=== PATIENT | male | born 1945 | race Caucasian/White ===

== ENCOUNTER 2019-01-26 12:00 | Inpatient (IN) ==
[2019-01-27] MEDS: Acetaminophen 325 MG TABLET PO PRN (17:23)
[2019-01-27] MEDS: *HR* Heparin 5,000 UNIT/ML VIAL SQ SCH (17:24)
--- NOTE | 2019-01-27 17:42 | Internal Med History&Physical ---
Date of Encounter: 01/27/19 Time of Encounter: 17:39 Assessment and Plan (1) Acute right MCA stroke Current visit: No Status: Acute To continue his rehabilitation to a right MCA infarct. Since neurological exam appears unchanged since his discharge to with continued left upper extremity plegia and left lower extremity paresis. Patient continues with slight dysarthria with left facial droop. Evaluation through physical therapy is pending. We will continue with current plan of care from . (2) Hypertension, essential, benign Current visit: No Status: Chronic No acute issues. We will continue on current plan of care and medications (3) CKD (chronic kidney disease) Current visit: Yes Status: Acute Patient has returned from [facility] are being evaluated for acute renal failure. Patient's creatinine had climbed to 4.8 at time of discharge to . Patient was evaluated and treated by nephrology with determination of possible contrast dye has reason for his acute increase in creatinine. Patient's last creatinine from was yesterday at 2.1. We will repeat patient's labs to monitor to serial labs. Qualifiers: Chronic kidney disease stage: unspecified stage Qualified Code(s): N18.9 - Chronic kidney disease, unspecified Internal Medicine - H&P: HPI Chief complaint: right CVA Admitted From: Hospital to Hospital Transfer Plans for Post Hospital Care: Home History of present illness: Mr. Torrez is a 73 year old male, who was transferred to this facility from [facility] after being readmitted there for evaluation of his acute renal failure. Patient recently was admitted to this facility for rehabilitation after experiencing a right MCA ischemic infarct and was treated with a right ICA stent while admitted at during that time. Patient was progressing well during therapy, but was found to have a elevated creatinine greater than 4 and was returned to relate for evaluation by nephrology. Patient's baseline creatinine was originally 1.7 at this time of discharge and had elevated to 4.8. Patient's most recent creatinine from yesterday at was at 2.1. Per medical records from , it was believed patient's elevated creatinine may have been the result of multiple exposures to contrast dye during his ICA stenting Patient continues to have LUE plegia and 3/5 LLE. RE 5/5. He continues to have a left facial droop and slight dysarthria. Patient at this time complains also of pain to his left ankle, which she states increases during repositioning. X- ray was obtained at time of arrival to this unit which showed no acute fracture but did show soft tissue edema. Patient denies any other discomforts or shortness of breath. Patient denies any history of gout. Past Med Surg Social Fam HX - Past Medical History Medical history: arthritis, CVA, hypertension, kidney stones - Past Surgical History Additional surgical history: Lumpectomy Left breast, bilateral rotator cuff repair, carpal tunnel sx, carotid stent placement - Social History Smoking Status: Never smoker Smokeless Tobacco Status: No Alcohol use: rarely Drug use: none - Family History Son Adopted: No Family Member Ethnicity: Non- Living Status: Hx Family Cardiac Disorders: No Hx Family Respiratory Disorders: No Hx Family Cancer: Yes Hx Family GI Disorders: No Hx Family Endocrine Disorder: No Hx Family Neuromuscular Disorders: No Hx Family Neurologic Disorders: No Hx Family HEENT Disorders: No Hx Family Autoimmune Disorders: No Internal Medicine - H&P: Meds Acetaminophen [Tylenol] 975 mg PO Q6HR PRN 01/16/19 [History] Aspirin Enteric Coated [Aspirin EC] 81 mg PO DAILY 01/16/19 [History] Atorvastatin Calcium [Lipitor] 80 mg PO HS 01/16/19 [History] Polyethylene Glycol 3350 [MiraLAX] 34 gm PO BID 01/16/19 [History] Ticagrelor [Brilinta] 60 mg PO BID 01/16/19 [History] Triamterene-Hctz 75-50 mg Tab 01/16/19 [History] Allergy/AdvReac Type Severity Reaction Status Date / Time No Known Allergies Allergy Verified 01/16/19 22:09 All Systems PM: A 10-system review of systems was performed and is negative for pertinent findings except as documented above in the HPI. - Constitutional Constitutional: as per HPI, no chills, no fever(s), no night sweats - EENT Eyes: as per HPI, no change in vision, no discharge, no pain, no photophobia Ears: as per HPI, no ear discharge, no ear pain, no tinnitus Nose, mouth and throat: as per HPI, no dysphagia, no nasal discharge, no neck pain, no sore throat - Breasts Breasts: as per HPI - Cardiovascular Cardiovascular ROS IM: as per HPI, no chest pain, no diaphoresis, no dyspnea, no lightheadedness, no palpitations, no syncope - Respiratory Respiratory: as per HPI, no cough, no dyspnea, no wheezing, no excessive phlegm production - Gastrointestinal Gastrointestinal: as per HPI, no abdominal pain, no diarrhea, no hematemesis, no hematochezia, no melena, no nausea, no vomiting - Genitourinary Genitourinary ROS male: as per HPI - Musculoskeletal Musculoskeletal ROS IM: as per HPI, no numbness, no tingling - Integumentary Integumentary IM: as per HPI, no rash, no unusual bruising - Neurological Neurological ROS: as per HPI, no confusion, no convulsions, no focal weakness, no numbness, no tingling, no tremor(s) - Hematologic/Lymphatic Hematologic/Lymphatic: no easy bruising - Constitutional Vitals: Temp Pulse Resp BP Pulse Ox 97.9 F 89 15 168/78 99 01/27/19 16:03 01/27/19 16:03 01/27/19 16:03 01/27/19 16:03 01/27/19 16:03 General appearance: Present: A&O X 3, pleasant - Head Head exam: Present: atraumatic, normocephalic - Eye Eye exam: Present: PERRL, conjuntiva pink, sclera anicteric Pupils: Present: PERRL - Neck Neck exam general surgery: Present: supple, trachea midline. Absent: lymphadenopathy - Respiratory Respiratory exam: Present: decreased breath sounds, CTAB. Absent: accessory muscle use, rales, rhonchi, wheezes - Cardiovascular Cardiovascular exam: Present: RRR, +S1, +S2. Absent: diastolic murmur, gallop, rubs, systolic murmur - GI/Abdominal GI/Abdominal exam: Present: normal bowel sounds, soft, no peritoneal signs. Absent: distended, tenderness - Extremities Exam Extremities exam: Present: warm, radial pulses palpable and symmetrical. Absent: calf tenderness, cyanotic, pedal edema Additional comments: Left ankle and foot appears swollen. No erythema noted. Slight tenderness during range of motion - Neurological Exam Neurological exam: Present: CN II-XII intact, oriented X3, facial droop, speech deficit. Absent: pronater drift Additional comments: Patient continues to have left upper arm plegia. Left leg paresis with muscle strength at 3/5. Left facial droop and dysarthria. Right extremities at 5/5 - Skin Skin exam: Present: dry, intact Internal Med - H&P Results - Impressions ITS Impressions Ankle X-Ray 01/27/19 16:17 IMPRESSION: No evidence of acute fracture Mild ankle swelling D/ / Rom Hyman MD / Rom Hyman MD Interpreting Provider: Rom Hyman MD
[2019-01-27] MEDS ORDERED: Ondansetron ODT 4 MG TAB.RAPDIS SL PRN (18:20)
[2019-01-27] MEDS: BRILINTA 60 MG PO SCH (21:42)
[2019-01-28] MEDS: *HR* Heparin 5,000 UNIT/ML VIAL SQ SCH ×2 (05:00→17:26)
[2019-01-28 07:56] LABS: Basophils % 0.3 %; Eosinophils # 0.1 K/mcL (0.0-0.6); Eosinophils % 0.6 %; Hematocrit 29.5 % (37.5-50.1); Immature Granulocytes % 1.3 % (0-4); Lymphocytes # 0.9 K/mcL (0.6-4.6); Lymphocytes % 9.7 %; Mean Corpuscular HGB Conc 33.9 g/dL (31.6-35.5); Mean Corpuscular Hemoglobin 30.6 pg (28.0-33.3); Mean Corpuscular Volume 90.2 fL (83.0-100.0); Mean Platelet Volume 8.8 fL (9.4-12.4); Monocytes # 1.2 K/mcL (0.0-1.3); Monocytes % 12.3 %; Neutrophils # 7.1 K/mcL (1.6-8.9); Platelet Count 384 K/mcL (140-400); Red Blood Count 3.27 M/mcL (4.19-5.50); Red Cell Distribution Width 13.6 % (11.5-14.5); Segmented Neutrophils % 75.8 %; White Blood Count 9.4 K/mcL (4.3-11.1)
[2019-01-28 08:17] LABS: Albumin 3.4 g/dL (3.5-5.7); Albumin/Globulin Ratio 1.2 (1.1-2.2); Bilirubin,Total 0.9 mg/dL (0.3-1.0); Calcium 8.7 mg/dL (8.6-10.3); Globulin 2.9 g/dL (2.4-3.5); Magnesium 1.5 mg/dL (1.6-2.6); Potassium 3.5 mEq/L (3.5-5.1); Total Protein 6.3 g/dL (6.4-8.9); Uric Acid 7.3 mg/dL (2.3-7.6)
[2019-01-28] MEDS: amLODIPine 5 MG TABLET PO SCH (08:33)
[2019-01-28] MEDS: Acetaminophen 325 MG TABLET PO PRN (08:33)
[2019-01-28] MEDS: Aspirin Enteric Coated 81 MG Tablet PO SCH (08:34)
[2019-01-28] MEDS: BRILINTA 60 MG PO SCH ×2 (08:35→20:40)
--- NOTE | 2019-01-28 10:16 | Internal Med Progress Note ---
Date of Encounter: 01/28/19 Time of Encounter: 10:13 - Assessment and plan (1) Acute right MCA stroke Current Visit: No Status: Acute Assessment and plan: Patient doing well. Patient was transferred back to this facility for further rehabilitation after being discharged from [facility]. Patient continues with left upper extremity plegia. Left lower extremity with paresis with muscle strength 3+/5. Patient states he feels some improvement of muscle strength on his left lower extremities and states that he was able to bear weight during transfer. Right extremities at 5/5. Patient also noted to have slight incre ased edema to left lower extremity, to include his left ankle which is painful during range of motion. X-ray was obtained which shows no acute process. Uric acid was at 7.2. Patient to continue with physical therapy and will apply ice and elevate left ankle when in bed. Venous Doppler pending (2) Hypertension, essential, benign Current Visit: No Status: Chronic Assessment and plan: Patient's vital signs stable but noted elevated systolic blood pressure greater than 170. We will add Tenormin 50 mg and continue to monitor blood pressure (3) CKD (chronic kidney disease) Current Visit: Yes Status: Acute Assessment and plan: Patient's renal function has been improving. Patient's last creatinine was 2.1 at . This morning's labs show a creatinine of 1.69. We will continue to monitor patient's renal status through serial labs. Qualifiers: Chronic kidney disease stage: unspecified stage Qualified Code(s): N18.9 - Chronic kidney disease, unspecified - Time Spent With Patient less than 15 minutes - Subjective Interval history: Patient appears relaxed trying denies any issues other than the pain to his left ankle during range of motion. Patient presented last evening after being discharged from [facility] and states that he is recently had a slight increase in edema to his left ankle which has been painful to move during range of motion. Labs were reviewed which shows a uric acid 7.3. Venous Doppler of the left leg is pending. Physical therapy evaluation is pending - Constitutional Vitals: Temp Pulse Resp BP Pulse Ox 98.6 F 67 16 169/74 97 01/28/19 07:26 01/28/19 07:26 01/28/19 07:26 01/28/19 07:26 01/28/19 07:26 General appearance: Present: A&O X 3, pleasant - Head Head exam: Present: atraumatic, normocephalic - Eye Eye exam: Present: PERRL, conjuntiva pink, sclera anicteric Pupils: Present: PERRL - Neck Neck exam general surgery: Present: supple, trachea midline. Absent: lymphadenopathy - Respiratory Respiratory exam: Present: CTAB. Absent: accessory muscle use, rales, rhonchi, wheezes - Cardiovascular Cardiovascular exam: Present: RRR, +S1, +S2. Absent: diastolic murmur, gallop, rubs, systolic murmur - GI/Abdominal GI/Abdominal exam: Present: normal bowel sounds, soft, no peritoneal signs. Absent: distended, tenderness - Extremities Exam Extremities exam: Present: warm, radial pulses palpable and symmetrical. Absent: calf tenderness, cyanotic, pedal edema Additional comments: Slight nonpitting edema to left lower leg and ankle. Tenderness on range of motion of left ankle. - Neurological Exam Neurological exam: Present: CN II-XII intact, oriented X3. Absent: pronater drift, facial droop, speech deficit Additional comments: Patient continues with left upper arm having plegia and left lower extremity with paresis of 3+/5 strength. Right extremities with 5/5 muscle strength - Skin Skin exam: Present: dry, intact Internal Medicine: Result - Labs CBC & Chem 7: 01/28/19 07:40 01/28/19 07:40 Labs: Short CBC 01/28/19 Range/Units 07:40 WBC 9.4 (4.3-11.1) K/mcL Hgb 10.0 L (12.9-16.9) g/dL Hct 29.5 L (37.5-50.1) % Plt Count 384 (140-400) K/mcL Neutrophils # 7.1 (1.6-8.9) K/mcL BMP 01/28/19 07:40 Sodium 137 Potassium 3.5 Chloride 103 Carbon Dioxide 24 BUN 29 H Creatinine 1.69 H Glucose 106 H Calcium 8.7 Liver Function 01/28/19 Range/Units 07:40 Total Bilirubin 0.9 (0.3-1.0) mg/dL AST 28 (13-39) Units/L ALT 27 (7-52) Units/L Alkaline Phosphatase 58 (34-104) Units/L Albumin 3.4 L (3.5-5.7) g/dL - Impressions Impressions Ankle X-Ray 01/27/19 16:17 IMPRESSION: No evidence of acute fracture Mild ankle swelling D/ / Rom Hyman MD / Rom Hyman MD Interpreting Provider: Rom Hyman MD Consult Discharge Plan - Plan Referrals: Danay Swan [Primary Care Provider] -
[2019-01-28] MEDS: Sennosides 8.6 MG TABLET PO SCH ×2 (11:18→20:40)
[2019-01-29] MEDS: *HR* Heparin 5,000 UNIT/ML VIAL SQ SCH ×2 (05:28→17:43)
[2019-01-29] MEDS: Acetaminophen 325 MG TABLET PO PRN ×2 (05:30→11:17)
[2019-01-29] MEDS: Sennosides 8.6 MG TABLET PO SCH ×2 (08:34→20:10)
[2019-01-29] MEDS: amLODIPine 5 MG TABLET PO SCH (08:34)
[2019-01-29] MEDS: Aspirin Enteric Coated 81 MG Tablet PO SCH (08:34)
[2019-01-29] MEDS: BRILINTA 60 MG PO SCH (08:35)
--- NOTE | 2019-01-29 10:24 | Internal Med Progress Note ---
Date of Encounter: 01/29/19 Time of Encounter: 10:22 - Assessment and plan (1) Acute right MCA stroke Current Visit: No Status: Acute Assessment and plan: Patient doing well. Patient was transferred back to this facility for further rehabilitation after being discharged from [facility]. Patient continues with left upper extremity plegia. Left lower extremity with paresis with muscle strength 3+/5. Patient states he feels some improvement of muscle strength on his left lower extremities and states that he was able to bear weight during transfer. Right extremities at 5/5. Patient also noted to have slight incre ased edema to left lower extremity, to include his left ankle which is painful during range of motion. X-ray was obtained which shows no acute process. Uric acid was at 7.2. Patient to continue with physical therapy and will apply ice and elevate left ankle when in bed. Venous Doppler pending Patient discharged from with a order for Brilinta 45 mg twice a day. Per medical records patient was to take his home prescription due to the dosing. Patient's states that no prescription was never called in from and that she currently does not have the medication. We will start Brilinta from our pharmacy per patient discharge orders (2) Hypertension, essential, benign Current Visit: No Status: Chronic Assessment and plan: Patient's vital signs stable but noted elevated systolic blood pressure greater than 170. Started on Tenormin 50 mg and continue to monitor blood pressure (3) CKD (chronic kidney disease) Current Visit: Yes Status: Acute Assessment and plan: Patient's renal function has been improving. Patient's last creatinine was 2.1 at . This morning's labs show a creatinine of 1.69. We will continue to monitor patient's renal status through serial labs. Qualifiers: Chronic kidney disease stage: unspecified stage Qualified Code(s): N18.9 - Chronic kidney disease, unspecified - Time Spent With Patient less than 15 minutes - Subjective Interval history: Patient states that his pain to his left ankle continues but is tolerable with current pain medications. Patient continues to have slight swelling to his left leg and is awaiting Doppler. Patient's discharge medications were reviewed which shows him to be on Brilinta 45 mg twice a day. Patient was to take his on home medications, but has stated that she has not had a prescription called into the pharmacy and does not have the medication of Brilinta. - Constitutional Vitals: Temp Pulse Resp BP Pulse Ox 98.0 F 53 16 136/73 95 01/29/19 07:00 01/29/19 07:00 01/29/19 07:00 01/29/19 07:00 01/29/19 07:00 General appearance: Present: A&O X 3, pleasant - Head Head exam: Present: atraumatic, normocephalic - Eye Eye exam: Present: PERRL, conjuntiva pink, sclera anicteric Pupils: Present: PERRL - Neck Neck exam general surgery: Present: supple, trachea midline. Absent: lymphadenopathy - Respiratory Respiratory exam: Present: CTAB. Absent: accessory muscle use, rales, rhonchi, wheezes - Cardiovascular Cardiovascular exam: Present: RRR, +S1, +S2. Absent: diastolic murmur, gallop, rubs, systolic murmur - GI/Abdominal GI/Abdominal exam: Present: normal bowel sounds, soft, no peritoneal signs. Absent: distended, tenderness - Extremities Exam Extremities exam: Present: warm, radial pulses palpable and symmetrical. Absent: calf tenderness, cyanotic, pedal edema Additional comments: Left leg and ankle remains slightly swollen with nonpitting edema. Slight tenderness on range of motion of left ankle - Neurological Exam Neurological exam: Present: CN II-XII intact, oriented X3, facial droop, speech deficit. Absent: pronater drift Additional comments: Patient continues with slight right facial droop and slight dysarthria. Left upper extremity plegia, left lower extremity paresis at 3+/5. Right extremities at 5/5 muscle strength. - Skin Skin exam: Present: dry, intact Internal Medicine: Result - Labs CBC & Chem 7: 01/28/19 07:40 01/28/19 07:40 Consult Discharge Plan - Plan Referrals: Danay Swan [Primary Care Provider] -
[2019-01-29] MEDS: *HR* Ticagrelor 90 MG TABLET PO SCH ×2 (11:56→20:09)
[2019-01-30] MEDS: *HR* Heparin 5,000 UNIT/ML VIAL SQ SCH ×2 (05:38→16:57)
[2019-01-30 06:09] LABS: Calcium 8.2 mg/dL (8.6-10.3); Potassium 3.5 mEq/L (3.5-5.1)
[2019-01-30] MEDS: Aspirin Enteric Coated 81 MG Tablet PO SCH (09:33)
[2019-01-30] MEDS: Acetaminophen 325 MG TABLET PO PRN (09:33)
[2019-01-30] MEDS: *HR* Ticagrelor 90 MG TABLET PO SCH ×2 (09:33→20:54)
[2019-01-30] MEDS: amLODIPine 5 MG TABLET PO SCH (09:34)
[2019-01-30] MEDS: Sennosides 8.6 MG TABLET PO SCH ×2 (09:34→20:55)
[2019-01-31] MEDS: *HR* Heparin 5,000 UNIT/ML VIAL SQ SCH ×2 (05:14→17:42)
[2019-01-31] MEDS: *HR* Ticagrelor 90 MG TABLET PO SCH ×2 (10:13→20:07)
[2019-01-31] MEDS: Aspirin Enteric Coated 81 MG Tablet PO SCH (10:14)
[2019-01-31] MEDS: amLODIPine 5 MG TABLET PO SCH (10:14)
[2019-01-31] MEDS: Sennosides 8.6 MG TABLET PO SCH ×2 (10:14→20:08)
--- NOTE | 2019-01-31 15:40 | Internal Med Progress Note ---
Date of Encounter: 01/31/19 Time of Encounter: 17:00 - Subjective Interval history: (1 ) CVA with debility Patient doing well. Patient was transferred back to this facility for further rehabilitation after being discharged from [facility]. Patient continues with left upper and lower extemity weakness. Left lower extremity with paresis with muscle strength 3+/5. he has been able to bear weight during transfer. Pt on brillinta (2) Hypertension, essential, benign Current Visit: No Status: Chronic Assessment and plan: Patient's vital signs stable systolic bp 120s to 130s continue Tenormin 50 mg and continue to monitor blood pressure (3) CKD (chronic kidney disease) Current Visit: Yes Status: Acute Assessment and plan: Patient's renal function has been improving. We will continue to monitor patient's renal status through serial labs. Qualifiers: Chronic kidney disease stage: unspecified stage Qualified Code(s): N18.9 - Chronic kidney disease, unspecified - Time Spent With Patient less than 15 minutes - Subjective Interval history: Patient participating in rehab, he went to [facility] ([facility] for a few days after acute renal failure. He had this resolve felt to be pre renal. He was started on Brilinta. He has been stable and doing well now. 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 I spoke with Vascular surgery at Dr Shen Case discussed in detail. Dr Vu stated no need for intervention at this time. Advised to continue PT and to repeat ultrasound in about 10 days. If this has grown in size then we are to contact Dr Shen and pt may need further evaluations or thrombosis proce dure. If it is the same or smaller then the plan is to repeat ultrasound here or outpatient in another 14 days for monitoring. - EXAM General appearance: Present: A&O X 3, pleasant - Head Head exam: Present: atraumatic, normocephalic - Eye Eye exam: Present: PERRL, conjuntiva pink, sclera anicteric Pupils: Present: PERRL - Neck Neck exam general surgery: Present: supple, trachea midline. Absent: lymphadenopathy - Respiratory Respiratory exam: Present: CTAB. Absent: accessory muscle use, rales, rhonchi, wheezes - Cardiovascular Cardiovascular exam: Present: RRR, +S1, +S2. Absent: diastolic murmur, gallop, rubs, systolic murmur - GI/Abdominal GI/Abdominal exam: Present: normal bowel sounds, soft, no peritoneal signs pt has mild ventral hernia soft reducible pt reports had prev ventral hernia repair. Absent: distended, tenderness - Extremities Exam Extremities exam: Present: warm, radial pulses palpable and symmetrical. Absent: calf tenderness, cyanotic, pedal edema Additional comments: Left leg and ankle remains slightly swollen with nonpitting edema. Slight tenderness on range of motion of left ankle - Neurological Exam Neurological exam: Present: CN II-XII intact, oriented X3, facial droop, speech deficit. Absent: pronater drift Additional comments: Patient continues with slight right facial droop and slight dysarthria. Left upper extremity plegia, left lower extremity paresis at 3+/5. Right extremities at 5/5 muscle strength. - Skin Skin exam: Present: dry, intact - Constitutional Vitals: Temp Pulse Resp BP Pulse Ox 97.9 F 56 16 149/67 97 01/31/19 07:11 01/31/19 07:11 01/31/19 07:11 01/31/19 07:11 01/31/19 07:11 General appearance: Present: A&O X 3, pleasant Internal Medicine: Result - Labs CBC & Chem 7: 01/28/19 07:40 01/30/19 05:35 Consult Discharge Plan - Plan Referrals: Danay Swan [Primary Care Provider] -
--- NOTE | 2019-01-31 17:57 | Internal Med Progress Note ---
Date of Encounter: 01/30/19 Time of Encounter: 17:50 - Subjective Interval history: (1 ) CVA with debility Patient doing well. Patient was transferred back to this facility for further rehabilitation after being discharged from [facility]. Patient continues with left upper and lower extemity weakness. Left lower extremity with paresis with muscle strength 3+/5. he has been able to bear weight during transfer. Pt on brillinta (2) Hypertension, essential, benign Current Visit: No Status: Chronic Assessment and plan: Patient's vital signs stable systolic bp 120s to 130s continue Tenormin 50 mg and continue to monitor blood pressure (3) CKD (chronic kidney disease) Current Visit: Yes Status: Acute Assessment and plan: Patient's renal function has been improving. We will continue to monitor patient's renal status through serial labs. Qualifiers: Chronic kidney disease stage: unspecified stage Qualified Code(s): N18.9 - Chronic kidney disease, unspecified - Time Spent With Patient less than 15 minutes - Subjective Interval history: Patient participating in rehab, he went to [facility] for a few days after acute renal failure. He had this resolve felt to be pre renal. He was started on Brilinta. He has been stable and doing well now. 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 I spoke with Vascular surgery at [facility] Dr Shen Case discussed in detail. Dr Vu stated no need for intervention at this time. Advised to continue PT and to repeat ultrasound in about 10 days. If this has grown in size then we are to contact Dr Shen and pt may need further evaluations or thrombosis proced ure. If it is the same or smaller then the plan is to repeat ultrasound here or outpatient in another 14 days for monitoring. - EXAM General appearance: Present: A&O X 3, pleasant - Head Head exam: Present: atraumatic, normocephalic - Eye Eye exam: Present: PERRL, conjuntiva pink, sclera anicteric Pupils: Present: PERRL - Neck Neck exam general surgery: Present: supple, trachea midline. Absent: lymphadenopathy - Respiratory Respiratory exam: Present: CTAB. Absent: accessory muscle use, rales, rhonchi, wheezes - Cardiovascular Cardiovascular exam: Present: RRR, +S1, +S2. Absent: diastolic murmur, gallop, rubs, systolic murmur - GI/Abdominal GI/Abdominal exam: Present: normal bowel sounds, soft, no peritoneal signs pt has mild ventral hernia soft reducible pt reports had prev ventral hernia repair. Absent: distended, tenderness - Extremities Exam Extremities exam: Present: warm, radial pulses palpable and symmetrical. Absent: calf tenderness, cyanotic, pedal edema Additional comments: Left leg and ankle remains slightly swollen with nonpitting edema. Slight tenderness on range of motion of left ankle - Neurological Exam Neurological exam: Present: CN II-XII intact, oriented X3, facial droop, speech deficit. Absent: pronater drift Additional comments: Patient continues with slight right facial droop and slight dysarthria. Left upper extremity plegia, left lower extremity paresis at 3+/5. Right extremities at 5/5 muscle strength. - Skin Skin exam: Present: dry, intact - Constitutional Vitals: Temp Pulse Resp BP Pulse Ox 97.9 F 56 16 149/67 97 01/31/19 07:11 01/31/19 07:11 01/31/19 07:11 01/31/19 07:11 01/31/19 07:11 General appearance: Present: A&O X 3, pleasant Internal Medicine: Result - Labs CBC & Chem 7: 01/28/19 07:40 01/30/19 05:35 Consult Discharge Plan - Plan Referrals: Danay Swan [Primary Care Provider] -
[2019-01-31] MEDS: Magnesium Oxide 400 MG TABLET PO SCH (20:08)
[2019-02-01] MEDS: *HR* Heparin 5,000 UNIT/ML VIAL SQ SCH ×2 (04:49→17:16)
[2019-02-01 05:47] LABS: Hematocrit 30.6 % (37.5-50.1); Hemoglobin 9.9 g/dL (12.9-16.9); Mean Corpuscular HGB Conc 32.4 g/dL (31.6-35.5); Mean Corpuscular Hemoglobin 30.5 pg (28.0-33.3); Mean Corpuscular Volume 94.2 fL (83.0-100.0); Platelet Count 445 K/mcL (140-400); Red Blood Count 3.25 M/mcL (4.19-5.50); Red Cell Distribution Width 13.7 % (11.5-14.5); White Blood Count 6.7 K/mcL (4.3-11.1)
[2019-02-01 06:17] LABS: Calcium 8.8 mg/dL (8.6-10.3); Potassium 3.8 mEq/L (3.5-5.1)
[2019-02-01] MEDS: amLODIPine 5 MG TABLET PO SCH (07:54)
[2019-02-01] MEDS: Cholecalciferol (D-3) 1,000 UNIT (25MCG) TABLET PO SCH (07:54)
[2019-02-01] MEDS: Aspirin Enteric Coated 81 MG Tablet PO SCH (07:54)
[2019-02-01] MEDS: Magnesium Oxide 400 MG TABLET PO SCH ×2 (07:54→22:21)
[2019-02-01] MEDS: *HR* Ticagrelor 90 MG TABLET PO SCH ×2 (07:54→22:20)
[2019-02-01] MEDS: Sennosides 8.6 MG TABLET PO SCH ×2 (07:55→22:22)
--- NOTE | 2019-02-01 09:40 | Internal Med Progress Note ---
Date of Encounter: 02/01/19 Time of Encounter: 09:39 - Assessment and plan (1) Acute right MCA stroke Current Visit: No Status: Acute Assessment and plan: Patient is stable to slightly improved and we will continue with therapies. (2) CKD (chronic kidney disease) Current Visit: Yes Status: Acute Assessment and plan: Patient is back to baseline, better than before. This was attributed to IVP dye. Qualifiers: Chronic kidney disease stage: unspecified stage Qualified Code(s): N18.9 - Chronic kidney disease, unspecified (3) Hypertension, essential, benign Current Visit: No Status: Chronic Assessment and plan: Controlled, will continue current regimen. (4) Venous aneurysm Current Visit: Yes Status: Acute Assessment and plan: Vascular surgeon instructed 10 day follow-up. The aneurysm measures 32.52 cm. If this is larger in 10 days, he will need referral for surgery. If not, he recommends follow-up ultrasound in another 10 days. (5) Depression, reactive Current Visit: No Status: Acute Assessment and plan: The patient's mood is better than 10 days ago. - Subjective Interval history: Patient is without complaint. He is pleased to be doing his physical therapy, again. He is wanting to progress and feels like he is getting stronger in his leg but nothing in his arm. Patient has no complaint of chest discomfort, dyspnea, orthopnea, palpitations, nausea or vomiting, constipation or diarrhea, other changes in bowel habits, dif ficulty with urination, rash or itching, or other new complaints, except as mentioned above. Review of systems is otherwise negative. I discussed management of patient's care with nursing staff. - Constitutional Vitals: Temp Pulse Resp BP Pulse Ox 97.9 F 53 16 136/62 98 02/01/19 07:22 02/01/19 07:22 02/01/19 07:22 02/01/19 07:22 02/01/19 07:22 Exam: Examination: (Except as mentioned above): General: In no apparent distress. Alert and oriented 3. Nondiaphoretic. Head: Atraumatic and normocephalic. Respiratory: No use of accessory muscles. Lungs are clear throughout. Normal airflow. Cardiovascular: Regular rate and rhythm without murmur appreciated. Abdomen: Bowel sounds are normal. No hepatosplenomegaly mass or tenderness appreciated. Obese and therefore difficult to palpate deeply. Extremities: No cyanosis clubbing or edema. Skin: Warm and non-diaphoretic with no new lesions noted. Neurological: Patient with left facial droop, dense left upper extremity weakness and improved left lower extremity weakness, 4 minus out of 5. Internal Medicine: Result - Labs CBC & Chem 7: 02/01/19 04:45 02/01/19 04:45 Labs: Short CBC 02/01/19 Range/Units 04:45 WBC 6.7 (4.3-11.1) K/mcL Hgb 9.9 L (12.9-16.9) g/dL Hct 30.6 L (37.5-50.1) % Plt Count 445 H (140-400) K/mcL BMP 02/01/19 04:45 Sodium 139 Potassium 3.8 Chloride 107 Carbon Dioxide 28 BUN 24 H Creatinine 1.41 H Glucose 108 H Calcium 8.8 Consult Discharge Plan - Plan Referrals: Danay Swan [Primary Care Provider] -
[2019-02-02] MEDS: *HR* Heparin 5,000 UNIT/ML VIAL SQ SCH ×2 (04:28→17:41)
[2019-02-02] MEDS: Acetaminophen 325 MG TABLET PO PRN (04:28)
[2019-02-02 06:03] LABS: BUN/Creatinine Ratio 17 (6-26); Blood Urea Nitrogen 24 mg/dL (8-23); Calcium 8.7 mg/dL (8.6-10.3); Carbon Dioxide 25 mEq/L (23-29); Chloride 106 mEq/L (98-107); Glucose 107 mg/dL (70-105); Osmolality,Calculated 291 (280-300); Potassium 3.8 mEq/L (3.5-5.1); Sodium 138 mEq/L (136-145); eGFR For African Americans > 60 (> 60); eGFR For Non-African Americans 51 (> 60)
[2019-02-02] MEDS: amLODIPine 5 MG TABLET PO SCH (09:28)
[2019-02-02] MEDS: Cholecalciferol (D-3) 1,000 UNIT (25MCG) TABLET PO SCH (09:28)
[2019-02-02] MEDS: *HR* Ticagrelor 90 MG TABLET PO SCH ×2 (09:28→19:33)
[2019-02-02] MEDS: Aspirin Enteric Coated 81 MG Tablet PO SCH (09:29)
[2019-02-02] MEDS: Sennosides 8.6 MG TABLET PO SCH ×2 (09:29→19:34)
[2019-02-02] MEDS: Magnesium Oxide 400 MG TABLET PO SCH ×2 (09:29→19:34)
--- NOTE | 2019-02-02 10:44 | Internal Med Progress Note ---
Date of Encounter: 02/02/19 Time of Encounter: 10:40 - Assessment and plan (1) Acute right MCA stroke Current Visit: No Status: Acute Assessment and plan: Patient doing well. Patient was transferred back to this facility for further rehabilitation after being discharged from [facility]. Patient continues with left upper extremity plegia. Left lower extremity with paresis with muscle strength 4/5. Patient states he feels some improvement of muscle strength on his left lower extremities, but states no change in muscle strength on his left upper extremity Right extremities at 5/5. Patient also noted to have slight increased edema to left lower extremity, to include his left ankle which is slightly painful during range of motion. X-ray was obtained which shows no acute process. P (2) Hypertension, essential, benign Current Visit: No Status: Chronic Assessment and plan: Vital signs stable. We will continue with current medications. (3) CKD (chronic kidney disease) Current Visit: Yes Status: Acute Assessment and plan: Patient's renal function has been improving. Most recent creatinine is at 1.38. We will continue to monitor patient's renal status through serial labs. Qualifiers: Chronic kidney disease stage: unspecified stage Qualified Code(s): N18.9 - Chronic kidney disease, unspecified - Time Spent With Patient less than 15 minutes - Subjective Interval history: Reason appears relaxed and currently denies any discomforts shortness of breath. Patient states the pain to his left ankle has improved and currently wears a pneumatic splint. - Constitutional Vitals: Temp Pulse Resp BP Pulse Ox 97.9 F 56 16 133/71 99 02/02/19 07:00 02/02/19 07:00 02/02/19 07:00 02/02/19 07:00 02/02/19 07:00 General appearance: Present: A&O X 3, pleasant - Head Head exam: Present: atraumatic, normocephalic - Eye Eye exam: Present: PERRL, conjuntiva pink, sclera anicteric Pupils: Present: PERRL - Neck Neck exam general surgery: Present: supple, trachea midline. Absent: lymphadenopathy - Respiratory Respiratory exam: Present: CTAB. Absent: accessory muscle use, rales, rhonchi, wheezes - Cardiovascular Cardiovascular exam: Present: RRR, +S1, +S2. Absent: diastolic murmur, gallop, rubs, systolic murmur - GI/Abdominal GI/Abdominal exam: Present: normal bowel sounds, soft, no peritoneal signs. Absent: distended, tenderness - Extremities Exam Extremities exam: Present: warm, radial pulses palpable and symmetrical. Absent: calf tenderness, cyanotic, pedal edema Additional comments: Left ankle remains slightly swollen with complaints of tenderness during range of motion. - Neurological Exam Neurological exam: Present: CN II-XII intact, oriented X3. Absent: pronater drift, facial droop, speech deficit Additional comments: Patient continues with left upper extremity plegia. Left lower extremity paresis with muscle strength 4/5. Right extremity is 5/5 muscle strength. - Skin Skin exam: Present: dry, intact Internal Medicine: Result - Labs CBC & Chem 7: 02/01/19 04:45 02/02/19 05:40 Labs: [facility] 02/02/19 05:40 Sodium 138 Potassium 3.8 Chloride 106 Carbon Dioxide 25 BUN 24 H Creatinine 1.38 H Glucose 107 H Calcium 8.7 Consult Discharge Plan - Plan Referrals: Danay Swan [Primary Care Provider] -
[2019-02-03] MEDS: *HR* Heparin 5,000 UNIT/ML VIAL SQ SCH ×2 (05:14→17:13)
[2019-02-03 05:49] LABS: Calcium 8.8 mg/dL (8.6-10.3); Potassium 4.1 mEq/L (3.5-5.1)
[2019-02-03] MEDS: Sennosides 8.6 MG TABLET PO SCH ×2 (08:53→22:11)
[2019-02-03] MEDS: amLODIPine 5 MG TABLET PO SCH (08:54)
[2019-02-03] MEDS: Magnesium Oxide 400 MG TABLET PO SCH ×2 (08:54→21:57)
[2019-02-03] MEDS: *HR* Ticagrelor 90 MG TABLET PO SCH ×2 (08:54→21:57)
[2019-02-03] MEDS: Cholecalciferol (D-3) 1,000 UNIT (25MCG) TABLET PO SCH (08:54)
[2019-02-03] MEDS: Aspirin Enteric Coated 81 MG Tablet PO SCH (08:54)
--- NOTE | 2019-02-03 09:44 | Internal Med Progress Note ---
Date of Encounter: 02/03/19 Time of Encounter: 09:42 - Assessment and plan (1) Acute right MCA stroke Current Visit: No Status: Acute Assessment and plan: Patient doing well. Patient continues with left upper extremity plegia and will continue with supportive sleeve. Left lower extremity with paresis with muscle strength 4/5. Patient states he feels some improvement of muscle strength on his left lower extremities, but states no change in muscle strength on his left upper extremity Right extremities at 5/5. Patient continues with complaints of slight pain to left ankle. (2) Hypertension, essential, benign Current Visit: No Status: Chronic Assessment and plan: Vital signs stable. We will continue with current medications. (3) CKD (chronic kidney disease) Current Visit: Yes Status: Acute Assessment and plan: Patient's renal function has been improving. Most recent creatinine is at 1.43. We will continue to monitor patient's renal status through serial labs. Qualifiers: Chronic kidney disease stage: unspecified stage Qualified Code(s): N18.9 - Chronic kidney disease, unspecified - Time Spent With Patient less than 15 minutes - Subjective Interval history: Reason appears relaxed and currently denies any discomforts shortness of breath. Patient states the pain to his left ankle has improved and currently wears a pneumatic splint. Patient continues to wear a supportive sleeve to his left arm which remains plegic. Denies any discomforts to his left groin at the site of the pseudoaneurysm - Constitutional Vitals: Temp Pulse Resp BP Pulse Ox 97.9 F 52 16 131/68 98 02/03/19 07:28 02/03/19 07:28 02/03/19 07:28 02/03/19 07:28 02/03/19 07:28 General appearance: Present: A&O X 3, pleasant - Head Head exam: Present: atraumatic, normocephalic - Eye Eye exam: Present: PERRL, conjuntiva pink, sclera anicteric Pupils: Present: PERRL - Neck Neck exam general surgery: Present: supple, trachea midline. Absent: lymphadenopathy - Respiratory Respiratory exam: Present: CTAB. Absent: accessory muscle use, rales, rhonchi, wheezes - Cardiovascular Cardiovascular exam: Present: RRR, +S1, +S2. Absent: diastolic murmur, gallop, rubs, systolic murmur - GI/Abdominal GI/Abdominal exam: Present: normal bowel sounds, soft, no peritoneal signs. Absent: distended, tenderness - Extremities Exam Extremities exam: Present: warm, radial pulses palpable and symmetrical. Absent: calf tenderness, cyanotic, pedal edema - Neurological Exam Neurological exam: Present: CN II-XII intact, oriented X3. Absent: pronater drift, facial droop, speech deficit Additional comments: She continues with left upper extremity plegia. Left lower extremity with paresis and a muscle strength of 4/5. Right extremity is 5/5 - Skin Skin exam: Present: dry, intact Internal Medicine: Result - Labs CBC & Chem 7: 02/01/19 04:45 02/03/19 05:00 Labs: BMP 02/03/19 05:00 Sodium 138 Potassium 4.1 Chloride 107 Carbon Dioxide 27 BUN 24 H Creatinine 1.42 H Glucose 111 H Calcium 8.8 Consult Discharge Plan - Plan Referrals: Danay Swan [Primary Care Provider] -
--- NOTE | 2019-02-03 14:55 | Psychological Evaluation ---
Date of Encounter: 02/03/19 Time of Encounter: 09:30 History of Present Illness History of present illness: Mr. Torrez is a 73 year old male who was transferred to this facility from [facility] after being readmitted there for evaluation of his acute renal failure. Patient recently was admitted to this facility for rehabilitation after experiencing a right MCA ischemic infarct and was treated with a right ICA stent while admitted at during that time. Patient was progressing well during therapy, but was found to have a elevated creatinine greater than 4 and was returned to [facility] for evaluation by nephrology. Past Medical History - Psychiatric History Psychiatric history: Reports: no psych history Home Medications and Allergies Acetaminophen [Tylenol] 975 mg PO Q6HR PRN 01/16/19 [History] Aspirin Enteric Coated [Aspirin EC] 81 mg PO DAILY 01/16/19 [History] Atorvastatin Calcium [Lipitor] 80 mg PO HS 01/16/19 [History] Polyethylene Glycol 3350 [MiraLAX] 34 gm PO BID 01/16/19 [History] Ticagrelor [Brilinta] 60 mg PO BID 01/16/19 [History] Triamterene-Hctz 75-50 mg Tab 01/16/19 [History] Allergy/AdvReac Type Severity Reaction Status Date / Time No Known Allergies Allergy Verified 01/16/19 22:09 Social History - Social History Social History: 52 years and 3 adult children, 2 grandchildren. 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 Independent prior. - Tobacco Use Smoking Status: Never smoker - Alcohol Use Alcohol Use: none - Drug Use Drug Use: none Cognitive/Emotional Assessment - Cognitive Ability Level of Alertness: Alert Orientation: Person, Place, Time Ability to Follow Directions: Good Speech Pattern: Normal rate, Normal rhythm, Normal tone, Appropriate Thought Process: Linear Calculations: Able to spell WORLD backw Additional Findings: 3?3 words immediately and 1/3 after 5min and no assistance with categorical cue. digits forward 4 and backward 3. Not able to complete serial 3's and difficulty understanding serial 7's. Unable to perform mental math calculations. - Emotional Status Mood Description: Anxious Affect Description: Blunted Coping Ability: Unsure about ability to cope Additional Findings: Goals is to RTW and return to driving and wants this in 4-5 weeks . Concerned that he has limited insight into the effects of the CVA and ultimate limitations. He stated he had no limitations, then corrected and said "can't use left arm/leg". Assessment & Plan - Diagnosis (1) Adjustment disorder with anxious mood - Prognosis Prognosis: Good - Treatment Plan Treatment Plan/Recommendations: Develop and train coping strategies to mange anxiety and increase awareness and insight. Treatment Frequency: weekly Next Session Date: 02/10/19 Procedures - Participants Therapy Participant: Patient - Session Time Session Start Time: 10:00 Session Stop Time: 10:30
[2019-02-04] MEDS: *HR* Heparin 5,000 UNIT/ML VIAL SQ SCH ×2 (05:54→17:14)
--- NOTE | 2019-02-04 09:18 | Internal Med Progress Note ---
Date of Encounter: 02/04/19 Time of Encounter: 09:15 - Assessment and plan (1) Acute right MCA stroke Current Visit: No Status: Acute Assessment and plan: Patient doing well. Patient continues with left upper extremity plegia and will continue with supportive sleeve. Left lower extremity with paresis with muscle strength 4/5. Patient continues with brace to left ankle which he states has improved his pain and ability to bear weight Patient states he feels some improvement of muscle strength on his left lower extremities, but states no change in muscle strength on his left upper extremity Right extremities at 5/5. (2) Hypertension, essential, benign Current Visit: No Status: Chronic (3) CKD (chronic kidney disease) Current Visit: Yes Status: Acute Assessment and plan: Patient's renal function has been improving. Most recent creatinine is at 1.43. We will continue to monitor patient's renal status through serial labs. Qualifiers: Chronic kidney disease stage: unspecified stage Qualified Code(s): N18.9 - Chronic kidney disease, unspecified - Time Spent With Patient less than 15 minutes - Subjective Interval history: Patient appears relaxed and currently denies any discomforts shortness of breath. Patient states the pain to his left ankle has improved and currently wears a splint. Patient continues to wear a supportive sleeve to his left arm which remains plegic. Denies any discomforts to his left groin at the site of the pseudoaneurysm. Patient states that physical therapy continues to progress well for him. - Constitutional Vitals: Temp Pulse Resp BP Pulse Ox 98.1 F 56 15 128/62 98 02/04/19 07:25 02/04/19 07:25 02/04/19 07:25 02/04/19 07:25 02/04/19 07:25 General appearance: Present: A&O X 3, pleasant - Head Head exam: Present: atraumatic, normocephalic - Eye Eye exam: Present: PERRL, conjuntiva pink, sclera anicteric Pupils: Present: PERRL - Neck Neck exam general surgery: Present: supple, trachea midline. Absent: lymphadenopathy - Respiratory Respiratory exam: Present: CTAB. Absent: accessory muscle use, rales, rhonchi, wheezes - Cardiovascular Cardiovascular exam: Present: RRR, +S1, +S2. Absent: diastolic murmur, gallop, rubs, systolic murmur - GI/Abdominal GI/Abdominal exam: Present: normal bowel sounds, soft, no peritoneal signs. Absent: distended, tenderness - Extremities Exam Extremities exam: Present: warm, radial pulses palpable and symmetrical. Absent: calf tenderness, cyanotic, pedal edema Additional comments: Patient continues with slight swelling to left lower leg and ankle. Left ankle continues with slight pain during range of motion. Continues with brace in place to left foot and ankle - Neurological Exam Neurological exam: Present: CN II-XII intact, oriented X3. Absent: pronater drift, facial droop, speech deficit Additional comments: Patient continues to have left upper extremity plegia. Left lower extremity paresis with muscle strength 4/5. Right extremities muscle strength is 5/5. - Skin Skin exam: Present: dry, intact Internal Medicine: Result - Labs CBC & Chem 7: 02/01/19 04:45 02/03/19 05:00 Consult Discharge Plan - Plan Referrals: Danay Swan [Primary Care Provider] -
[2019-02-04] MEDS: Sennosides 8.6 MG TABLET PO SCH ×2 (10:38→20:03)
[2019-02-04] MEDS: Aspirin Enteric Coated 81 MG Tablet PO SCH (10:38)
[2019-02-04] MEDS: amLODIPine 5 MG TABLET PO SCH (10:38)
[2019-02-04] MEDS: Cholecalciferol (D-3) 1,000 UNIT (25MCG) TABLET PO SCH (10:38)
[2019-02-04] MEDS: Magnesium Oxide 400 MG TABLET PO SCH ×2 (10:38→20:09)
[2019-02-04] MEDS: *HR* Ticagrelor 90 MG TABLET PO SCH ×2 (10:38→20:09)
[2019-02-05] MEDS: *HR* Heparin 5,000 UNIT/ML VIAL SQ SCH ×2 (04:47→17:41)
[2019-02-05] MEDS: Magnesium Oxide 400 MG TABLET PO SCH ×2 (08:58→20:03)
[2019-02-05] MEDS: Sennosides 8.6 MG TABLET PO SCH ×2 (08:59→20:03)
[2019-02-05] MEDS: amLODIPine 5 MG TABLET PO SCH (08:59)
[2019-02-05] MEDS: *HR* Ticagrelor 90 MG TABLET PO SCH ×2 (08:59→20:02)
[2019-02-05] MEDS: Aspirin Enteric Coated 81 MG Tablet PO SCH (08:59)
[2019-02-05] MEDS: Cholecalciferol (D-3) 1,000 UNIT (25MCG) TABLET PO SCH (08:59)
--- NOTE | 2019-02-05 10:40 | Internal Med Progress Note ---
Date of Encounter: 02/05/19 Time of Encounter: 10:38 - Assessment and plan (1) Acute right MCA stroke Current Visit: No Status: Acute Assessment and plan: Patient doing well. Patient continues with left upper extremity plegia and will continue with supportive sleeve. Left lower extremity with paresis with muscle strength 4/5. Patient continues with brace to left ankle which he states has improved his pain and ability to bear weight Patient states he feels some improvement of muscle strength on his left lower extremities, but states no change in muscle strength on his left upper extremity Right extremities at 5/5. (2) Hypertension, essential, benign Current Visit: No Status: Chronic Assessment and plan: Vital signs stable. We will continue with current medications. (3) CKD (chronic kidney disease) Current Visit: Yes Status: Acute Assessment and plan: Patient's renal function has been improving. Most recent creatinine is at 1.42, which has remained stable. We will continue to monitor patient's renal status through serial labs. Qualifiers: Chronic kidney disease stage: unspecified stage Qualified Code(s): N18.9 - Chronic kidney disease, unspecified - Time Spent With Patient less than 15 minutes - Subjective Interval history: Patient appears relaxed and currently denies any discomforts shortness of breath. Patient states the pain to his left ankle has improved and currently wears a splint. Patient continues to wear a supportive sleeve to his left arm which remains plegic. Denies any discomforts to his left groin at the site of the pseudoaneurysm. Patient states that physical therapy continues to progress well for him. Patient states she continues to have loose stools but no diarrhea. Patient's laxatives were recently changed to when necessary. - Constitutional Vitals: Temp Pulse Resp BP Pulse Ox 97.8 F 60 14 145/67 97 02/05/19 08:34 02/05/19 08:34 02/05/19 08:34 02/05/19 08:34 02/05/19 08:34 General appearance: Present: A&O X 3, pleasant - Head Head exam: Present: atraumatic, normocephalic - Eye Eye exam: Present: PERRL, conjuntiva pink, sclera anicteric Pupils: Present: PERRL - Neck Neck exam general surgery: Present: supple, trachea midline. Absent: lymphadenopathy - Respiratory Respiratory exam: Present: decreased breath sounds, CTAB. Absent: accessory muscle use, rales, rhonchi, wheezes - Cardiovascular Cardiovascular exam: Present: RRR, +S1, +S2. Absent: diastolic murmur, gallop, rubs, systolic murmur - GI/Abdominal GI/Abdominal exam: Present: normal bowel sounds, soft, no peritoneal signs. Abs ent: distended, tenderness - Extremities Exam Extremities exam: Present: warm, radial pulses palpable and symmetrical. Absent: calf tenderness, cyanotic, pedal edema Additional comments: Left ankle remains slightly swollen with complaints of slight pain during range of motion. Brace currently in place which allows patient weightbearing - Neurological Exam Neurological exam: Present: CN II-XII intact, oriented X3. Absent: pronater drift, facial droop, speech deficit Additional comments: Patient continues with left upper extremity plegia and left lower extremity paresis with muscle strength 4/5. Right extremity is 5/5. - Skin Skin exam: Present: dry, intact Internal Medicine: Result - Labs CBC & Chem 7: 02/01/19 04:45 02/03/19 05:00 Consult Discharge Plan - Plan Referrals: Danay Swan [Primary Care Provider] -
[2019-02-05] MEDS: Acetaminophen 325 MG TABLET PO PRN (20:03)
[2019-02-06 05:54] LABS: Hematocrit 29.3 % (37.5-50.1); Hemoglobin 9.4 g/dL (12.9-16.9); Mean Corpuscular HGB Conc 32.1 g/dL (31.6-35.5); Mean Corpuscular Volume 93.6 fL (83.0-100.0); Mean Platelet Volume 8.7 fL (9.4-12.4); Platelet Count 390 K/mcL (140-400); Red Blood Count 3.13 M/mcL (4.19-5.50); White Blood Count 5.1 K/mcL (4.3-11.1)
[2019-02-06 06:11] LABS: Alanine Aminotransferase 44 Units/L (7-52); Albumin 3.2 g/dL (3.5-5.7); Albumin/Globulin Ratio 1.3 (1.1-2.2); Alkaline Phosphatase 67 Units/L (34-104); Aspartate Amino Transferase 28 Units/L (13-39); BUN/Creatinine Ratio 16 (6-26); Bilirubin,Total 0.6 mg/dL (0.3-1.0); Blood Urea Nitrogen 21 mg/dL (8-23); Calcium 9.1 mg/dL (8.6-10.3); Carbon Dioxide 27 mEq/L (23-29); Globulin 2.4 g/dL (2.4-3.5); Glucose 110 mg/dL (70-105); Magnesium 1.7 mg/dL (1.6-2.6); Potassium 3.9 mEq/L (3.5-5.1); Total Protein 5.6 g/dL (6.4-8.9); eGFR For African Americans > 60 (> 60); eGFR For Non-African Americans 52 (> 60)
[2019-02-06] MEDS: *HR* Heparin 5,000 UNIT/ML VIAL SQ SCH ×2 (06:21→16:56)
[2019-02-06 06:25] LABS: Chloride 104 mEq/L (98-107); Osmolality,Calculated 290 (280-300); Sodium 138 mEq/L (136-145)
--- NOTE | 2019-02-06 08:41 | Internal Med Progress Note ---
Date of Encounter: 02/06/19 Time of Encounter: 08:39 - Assessment and plan (1) Anemia Current Visit: Yes Status: Acute Qualifiers: Anemia type: unspecified type Qualified Code(s): D64.9 - Anemia, uns pecified (2) Acute right MCA stroke Current Visit: No Status: Acute Assessment and plan: Stable getting rehab no acute issues slowly progressing (3) Hypertension, essential, benign Current Visit: No Status: Chronic Assessment and plan: blood pressure stable on meds will follow (4) Acute on chronic renal failure Current Visit: No Status: Chronic Assessment and plan: stable creatinine 1.35 continue to follow . Adjust meds as needed Qualifiers: Acute renal failure type: unspecified Chronic kidney disease stage: stage 4 (severe) Qualified Code(s): N17.9 - Acute kidney failure, unspecified; N18.4 - Chronic kidney disease, stage 4 (severe) - Subjective Interval history: Cross coverage No acute issues todays no pain eating his meals .weakness getting better , Still has some edema legs . No chest pain nausea vomiting or diarrhea overall feels stable - Constitutional Vitals: Temp Pulse Resp BP Pulse Ox 98.5 F 63 16 147/75 98 02/06/19 07:56 02/06/19 07:56 02/06/19 07:56 02/06/19 07:56 02/06/19 07:56 General appearance: Present: A&O X 3, pleasant - Eye Eye exam: Present: EOMI, PERRL. Absent: sclera anicteric - Neck Neck exam general surgery: Present: full ROM, supple. Absent: tenderness - Respiratory Respiratory exam: Present: CTAB. Absent: chest wall tenderness, decreased breath sounds, rales, respiratory distress, rhonchi, stridor, wheezes, tachypnea - Cardiovascular Cardiovascular exam: Present: RRR, +S1, +S2, systolic murmur. Absent: JVD - GI/Abdominal GI/Abdominal exam: Present: normal bowel sounds, soft. Absent: rebound, rigid, tenderness, no peritoneal signs - Extremities Exam Extremities exam: Present: pedal edema Additional comments: + pitting both side - Neurological Exam Neurological exam: Present: oriented X3, facial droop. Absent: no focal deficits, speech deficit Additional comments: right side weakness when compared to left side Internal Medicine: Result - Labs CBC & Chem 7: 02/06/19 05:05 02/06/19 05:05 Labs: Short CBC 02/06/19 Range/Units 05:05 WBC 5.1 (4.3-11.1) K/mcL Hgb 9.4 L (12.9-16.9) g/dL Hct 29.3 L (37.5-50.1) % Plt Count 390 (140-400) K/mcL BMP 02/06/19 05:05 Sodium 138 Potassium 3.9 Chloride 104 Carbon Dioxide 27 BUN 21 Creatinine 1.35 H Glucose 110 H Calcium 9.1 Liver Function 02/06/19 Range/Units 05:05 Total Bilirubin 0.6 (0.3-1.0) mg/dL AST 28 (13-39) Units/L ALT 44 (7-52) Units/L Alkaline Phosphatase 67 (34-104) Units/L Albumin 3.2 L (3.5-5.7) g/dL Consult Discharge Plan - Plan Referrals: Danay Swan [Primary Care Provider] -
[2019-02-06] MEDS: Sennosides 8.6 MG TABLET PO SCH ×2 (09:10→22:44)
[2019-02-06] MEDS: Cholecalciferol (D-3) 1,000 UNIT (25MCG) TABLET PO SCH (09:10)
[2019-02-06] MEDS: *HR* Ticagrelor 90 MG TABLET PO SCH ×2 (09:10→20:46)
[2019-02-06] MEDS: Aspirin Enteric Coated 81 MG Tablet PO SCH (09:10)
[2019-02-06] MEDS: Magnesium Oxide 400 MG TABLET PO SCH ×2 (09:10→20:47)
[2019-02-06] MEDS: amLODIPine 5 MG TABLET PO SCH (09:10)
[2019-02-07] MEDS: *HR* Heparin 5,000 UNIT/ML VIAL SQ SCH ×2 (05:43→17:01)
--- NOTE | 2019-02-07 07:52 | Internal Med Progress Note ---
Date of Encounter: 02/07/19 Time of Encounter: 07:50 - Assessment and plan (1) Anemia Current Visit: Yes Status: Acute Assessment and plan: Added Iron follow labs ordered Qualifiers: Anemia type: unspecified type Qualified Code(s): D64.9 - Anemia, unspecified (2) Acute right MCA stroke Current Visit: No Status: Acute Assessment and plan: No new change getting his rehab and slowly improving (3) Hypertension, essential, benign Current Visit: No Status: Chronic (4) Acute on chronic renal failure Current Visit: No Status: Chronic Assessment and plan: stable creatinine 1.35 continue to follow . Adjust meds as needed labs pending tomorrow Qualifiers: Acute renal failure type: unspecified Chronic kidney disease stage: stage 4 (severe) Qualified Code(s): N17.9 - Acute kidney failure, unspecified; N18.4 - Chronic kidney disease, stage 4 (severe) - Subjective Interval history: Cross coverage No acute issues todays overnight uneventful overall feels well - Constitutional Vitals: Temp Pulse Resp BP Pulse Ox 97.8 F 54 18 113/52 98 02/07/19 07:46 02/07/19 07:46 02/07/19 07:46 02/07/19 07:46 02/07/19 07:46 General appearance: Present: A&O X 3, pleasant, no acute distress, answers que stions appropriately - Head Head exam: Present: atraumatic - Eye Eye exam: Present: EOMI, PERRL. Absent: scleral icterus Pupils: Present: PERRL - Neck Neck exam general surgery: Present: supple. Absent: nuchal rigidity - Respiratory Respiratory exam: Present: CTAB. Absent: prolonged expiratory phase, respiratory distress, rhonchi, stridor, wheezes, tachypnea - Cardiovascular Cardiovascular exam: Present: +S1, +S2. Absent: JVD, systolic murmur, tachycardia - GI/Abdominal GI/Abdominal exam: Present: normal bowel sounds, soft. Absent: distended, guarding, rebound, rigid - Extremities Exam Extremities exam: Absent: pedal edema, tenderness - Neurological Exam Neurological exam: Present: CN II-XII intact Additional comments: mild facial deviation , left upper and lower weak as compared to right side no new change Internal Medicine: Result - Labs CBC & Chem 7: 02/06/19 05:05 02/06/19 05:05 Consult Discharge Plan - Plan Referrals: Danay Swan [Primary Care Provider] -
[2019-02-07] MEDS: *HR* Ticagrelor 90 MG TABLET PO SCH ×2 (08:57→19:46)
[2019-02-07] MEDS: Magnesium Oxide 400 MG TABLET PO SCH ×2 (08:57→19:46)
[2019-02-07] MEDS: amLODIPine 5 MG TABLET PO SCH (08:57)
[2019-02-07] MEDS: Aspirin Enteric Coated 81 MG Tablet PO SCH (08:57)
[2019-02-07] MEDS: Sennosides 8.6 MG TABLET PO SCH (08:58)
[2019-02-07] MEDS: Cholecalciferol (D-3) 1,000 UNIT (25MCG) TABLET PO SCH (08:58)
[2019-02-07 11:31] LABS: % Iron Saturation 24 % (20-55); Iron 55 mcg/dL (65-175); Transferrin 167 mg/dL (203-362)
[2019-02-08] MEDS: Sennosides 8.6 MG TABLET PO SCH ×3 (00:09→20:24)
[2019-02-08] MEDS: Acetaminophen 325 MG TABLET PO PRN ×2 (00:15→20:25)
[2019-02-08] MEDS: *HR* Heparin 5,000 UNIT/ML VIAL SQ SCH ×2 (05:51→17:44)
[2019-02-08] MEDS: amLODIPine 5 MG TABLET PO SCH (09:24)
[2019-02-08] MEDS: Aspirin Enteric Coated 81 MG Tablet PO SCH (09:24)
[2019-02-08] MEDS: Cholecalciferol (D-3) 1,000 UNIT (25MCG) TABLET PO SCH (09:24)
[2019-02-08] MEDS: *HR* Ticagrelor 90 MG TABLET PO SCH ×2 (09:24→20:26)
[2019-02-08] MEDS: Magnesium Oxide 400 MG TABLET PO SCH ×2 (09:25→20:26)
--- NOTE | 2019-02-08 10:52 | Internal Med Progress Note ---
Date of Encounter: 02/08/19 Time of Encounter: 10:47 - Assessment and plan (1) Acute right MCA stroke Current Visit: No Status: Acute Assessment and plan: He continues to improve, slowly but surely. He will continue with all the rapies, as planned. (2) CKD (chronic kidney disease) Current Visit: Yes Status: Acute Assessment and plan: Stable per lab work over the weekend. Qualifiers: Chronic kidney disease stage: unspecified stage Qualified Code(s): N18.9 - Chronic kidney disease, unspecified (3) Hypertension, essential, benign Current Visit: No Status: Chronic Assessment and plan: Control is adequate. (4) Venous aneurysm Current Visit: Yes Status: Acute Assessment and plan: Repeat ultrasound today. (5) Depression, reactive Current Visit: No Status: Acute Assessment and plan: Stable to improved. - Subjective Interval history: Patient is without complaint. He notes that he is having a little more movement of his fingers and toes and feels that therapy is, along well. He also was noted to have less facial droop and better speech, per his family, yesterday. He states bowels and bladder are functioning well. We discussed his follow-up venous ultrasound scheduled for today. Patient has no complaint of chest discomfort, dyspnea, orthopnea, palpitations, nausea or vomiting, constipation or diarrhea, other changes in bowel habits, difficulty with urination, rash or itching, or other new complaints, except as mentioned above. Review of systems is otherwise negative. I discussed management of patient's care with nursing staff. - Constitutional Vitals: Temp Pulse Resp BP Pulse Ox 97.4 F L 57 16 124/67 96 02/08/19 06:43 02/08/19 06:43 02/08/19 06:43 02/08/19 06:43 02/08/19 06:43 Exam: Examination: (Except as mentioned above): General: In no apparent distress. Alert and oriented 3. Nondiaphoretic. Head: Atraumatic and normocephalic. Respiratory: No use of accessory muscles. Lungs are clear throughout. Normal airflow. Cardiovascular: Regular rate and rhythm without murmur appreciated. Abdomen: Bowel sounds are normal. No hepatosplenomegaly mass or tenderness appreciated. Obese and therefore difficult to palpate deeply. Extremities: No cyanosis clubbing or edema. Skin: Warm and non-diaphoretic with no new lesions noted. Neurologic: Patient has left facial droop which is moderate but improved versus previous. He has grasp strength and extension at left fingers which is now 2+/5. Similar function for dorsi plantar flexion, at the left. Internal Medicine: Result - Labs CBC & Chem 7: 02/06/19 05:05 02/06/19 05:05 Consult Discharge Plan - Plan Referrals: Danay Sawn [Primary Care Provider] -
[2019-02-09] MEDS: *HR* Heparin 5,000 UNIT/ML VIAL SQ SCH ×2 (04:44→17:25)
[2019-02-09] MEDS: Sennosides 8.6 MG TABLET PO SCH ×2 (08:19→20:15)
[2019-02-09] MEDS: *HR* Ticagrelor 90 MG TABLET PO SCH ×2 (08:19→20:15)
[2019-02-09] MEDS: Cholecalciferol (D-3) 1,000 UNIT (25MCG) TABLET PO SCH (08:19)
[2019-02-09] MEDS: Aspirin Enteric Coated 81 MG Tablet PO SCH (08:20)
[2019-02-09] MEDS: amLODIPine 5 MG TABLET PO SCH (08:20)
[2019-02-09] MEDS: Magnesium Oxide 400 MG TABLET PO SCH ×2 (08:20→20:15)
--- NOTE | 2019-02-09 09:24 | Internal Med Progress Note ---
Date of Encounter: 02/09/19 Time of Encounter: 09:21 - Assessment and plan (1) Acute right MCA stroke Current Visit: No Status: Acute Assessment and plan: Patient is progressing well. Left upper extremity now is pruritic with 3/5 muscle strength. Left lower extremity remains at 4/5 muscle strength but also remains at 2/5 muscle strength for his dorsiflexion. Right extremities remain 5/5 muscle strength. Patient continues to progress with physical therapy. He with current plan of care (2) Hypertension, essential, benign Current Visit: No Status: Chronic Assessment and plan: Vital signs stable. We will continue with current medications. (3) CKD (chronic kidney disease) Current Visit: Yes Status: Acute Assessment and plan: Patient's renal function has been improving. Most recent creatinine is at 1.35, which has remained stable. We will continue to monitor patient's renal status through serial labs. Qualifiers: Chronic kidney disease stage: unspecified stage Qualified Code(s): N18.9 - Chronic kidney disease, unspecified (4) Venous aneurysm Current Visit: Yes Status: Acute Assessment and plan: Patient had follow-up ultrasound of the left groin pseudoaneurysm which showed a slight increase in measurements. Status post pseudoaneurysm will be called to patient's vascular physician at for further evaluation and treatment. - Time Spent With Patient less than 15 minutes - Subjective Interval history: Patient appears relaxed currently denies any discomforts or shortness of breath. Patient states that he has been having increased movement to his left upper extremity is very pleased with this. States that he feels that therapy is progressing well for him. Patient had a repeat ultrasound of the left groin pseudoaneurysm which showed a slight increase in size. Denies any pain to his l eft groin area. Distal CV checks normal. - Constitutional Vitals: Temp Pulse Resp BP Pulse Ox 98.1 F 60 18 128/55 97 02/09/19 09:00 02/09/19 09:00 02/09/19 09:00 02/09/19 09:00 02/09/19 09:00 General appearance: Present: A&O X 3, pleasant, no acute distress, answers questions appropriately - Head Head exam: Present: atraumatic, normocephalic - Eye Eye exam: Present: PERRL, conjuntiva pink, sclera anicteric Pupils: Present: PERRL - Neck Neck exam general surgery: Present: supple, trachea midline. Absent: lymphadenopathy - Respiratory Respiratory exam: Present: decreased breath sounds, CTAB. Absent: accessory muscle use, rales, rhonchi, wheezes - Cardiovascular Cardiovascular exam: Present: RRR, +S1, +S2. Absent: diastolic murmur, gallop, rubs, systolic murmur - GI/Abdominal GI/Abdominal exam: Present: normal bowel sounds, soft, no peritoneal signs. Absent: distended, tenderness - Extremities Exam Extremities exam: Present: warm, radial pulses palpable and symmetrical. Absent: calf tenderness, cyanotic, pedal edema Additional comments: Slight generalized edema to left extremities. Left ankle remains slightly swollen with complaints of tenderness during range of motion. Left ankle brace in place - Neurological Exam Neurological exam: Present: CN II-XII intact, oriented X3. Absent: pronater drift, facial droop, speech deficit Additional comments: Left upper extremity with 3/5 muscle strength in both proximal and distal. Left lower extremity with 4/5 muscle strength, but noted to/5 muscle strength on dorsiflexion. Right extremities with 5/5 muscle strength - Skin Skin exam: Present: dry, intact Internal Medicine: Result - Labs CBC & Chem 7: 02/06/19 05:05 02/06/19 05:05 Consult Discharge Plan - Plan Referrals: Danay Swan [Primary Care Provider] -
[2019-02-09] MEDS: Acetaminophen 325 MG TABLET PO PRN (20:16)
[2019-02-10] MEDS: *HR* Heparin 5,000 UNIT/ML VIAL SQ SCH ×2 (05:23→17:33)
[2019-02-10] MEDS: Aspirin Enteric Coated 81 MG Tablet PO SCH (08:35)
[2019-02-10] MEDS: amLODIPine 5 MG TABLET PO SCH (08:35)
[2019-02-10] MEDS: Sennosides 8.6 MG TABLET PO SCH ×2 (08:35→20:17)
[2019-02-10] MEDS: *HR* Ticagrelor 90 MG TABLET PO SCH ×2 (08:35→20:16)
[2019-02-10] MEDS: Cholecalciferol (D-3) 1,000 UNIT (25MCG) TABLET PO SCH (08:35)
[2019-02-10] MEDS: Magnesium Oxide 400 MG TABLET PO SCH ×2 (08:35→20:16)
--- NOTE | 2019-02-10 09:21 | Internal Med Progress Note ---
Date of Encounter: 02/10/19 Time of Encounter: 09:19 - Assessment and plan (1) Acute right MCA stroke Current Visit: No Status: Acute Assessment and plan: Patient is progressing well. Left upper extremity now is pruritic with 3/5 muscle strength. Left lower extremity remains at 4/5 muscle strength but also remains at 2/5 muscle strength for his dorsiflexion. Right extremities remain 5/5 muscle strength. Patient continues to progress with physical therapy. He with current plan of care (2) Hypertension, essential, benign Current Visit: No Status: Chronic Assessment and plan: Vital signs stable. We will continue with current medications. (3) CKD (chronic kidney disease) Current Visit: Yes Status: Acute Assessment and plan: Patient's renal function has been improving. Most recent creatinine is at 1.35, which has remained stable. We will continue to monitor patient's renal status through serial labs. Qualifiers: Chronic kidney disease stage: unspecified stage Qualified Code(s): N18.9 - Chronic kidney disease, unspecified (4) Venous aneurysm Current Visit: Yes Status: Acute Assessment and plan: Patient had follow-up ultrasound of the left groin pseudoaneurysm which showed a slight increase in measurements. Venous Doppler results for the pseudoaneurysm has been called to patient's vascular physician at for further evaluation and treatment. Contact has been made with patient's vascular surgeon at states that he will make arrangements with his partner to evaluate patient pseudoaneurysm. Plan is for patient to be transferred ported [facility] for possible [facility] treatment of the pseudoaneurysm. We will hold patient's Brilenta and will hold his Heparin at least 12 hrs prior to his procedure when the arrangement are made. - Time Spent With Patient less than 15 minutes - Subjective Interval history: Patient appears relaxed currently denies any discomforts or shortness of breath. Patient states that he has been having increased movement to his left upper extremity is very pleased with this. States that he feels that therapy is progressing well for him and voiced concerns about missing therapy if he has to go to [place] for treatment for pseudoaneurysm. Patient had a repeat ultrasound of the left groin pseudoaneurysm which showed a slight increase in size. Denies any pain to his left groin area. Distal CV checks normal. Contact has been made with patient's vascular surgeon at apparatus are being made for him to be supported to [place] in the next few days for possible outpatient treatment of the pseudoaneurysm. - Constitutional Vitals: Temp Pulse Resp BP Pulse Ox 97.9 F 59 14 127/59 97 02/10/19 07:30 02/10/19 07:30 02/10/19 07:30 02/10/19 07:30 02/10/19 07:30 General appearance: Present: A&O X 3, pleasant, no acute distress, answers questions appropriately - Head Head exam: Present: atraumatic, normocephalic - Eye Eye exam: Present: PERRL, conjuntiva pink, sclera anicteric Pupils: Present: PERRL - Neck Neck exam general surgery: Present: supple, trachea midline. Absent: lymphadenopathy - Respiratory Respiratory exam: Present: decreased breath sounds, CTAB. Absent: accessory muscle use, rales, rhonchi, wheezes - Cardiovascular Cardiovascular exam: Present: RRR, +S1, +S2. Absent: diastolic murmur, gallop, rubs, systolic murmur - GI/Abdominal GI/Abdominal exam: Present: normal bowel sounds, soft, no peritoneal signs. Absent: distended, tenderness - Extremities Exam Extremities exam: Present: warm, radial pulses palpable and symmetrical. Absent: calf tenderness, cyanotic, pedal edema Additional comments: Patient was slight nonpitting edema bilateral lower extremities. Patient continues with complaints of slight discomfort to his left ankle during range of motion and continues to wear a supportive brace. - Neurological Exam Neurological exam: Present: CN II-XII intact, oriented X3. Absent: pronater drift, facial droop, speech deficit Additional comments: Patient continues to have left extremity hemiparesis with his left upper extremity at 3/5 muscle strength in his left lower extremity 4/5 muscle strength. Patient has 3/5 muscle strength on his left dorsiflexion. Patient continues with gross motor movement of left upper extremity. Right extremities with 5/5 muscle strength. - Skin Skin exam: Present: dry, intact Internal Medicine: Result - Labs CBC & Chem 7: 02/06/19 05:05 02/06/19 05:05 Consult Discharge Plan - Plan Referrals: Danay Swan [Primary Care Provider] -
[2019-02-10 11:46] LABS: INR 1.1; Prothrombin Time 12.7 Seconds (9.4-12.1)
[2019-02-10 11:48] LABS: Activated Partial Thrombo Time 30.4 Seconds (26.0-36.0)
--- NOTE | 2019-02-10 16:08 | Rehab Psychology Progress Note ---
Date of Encounter: 02/10/19 Time of Encounter: 10:30 Subjective - Patient Report Patient Report: "Doing great and feeling good.Moving arm and fingers and walking around the parallel bars." - Symptoms Symptoms: Speech is improved and verbalized strategies. Objective - WHODAS Functional Impairment Concentration, Problem-solving, Communication: Mild Social Functioning: None - Comments Functional Status Comments: Feeling confident and displays increase in awareness and needs. - Mental Status Mental Status Changes: OX3 Assessment and Plan - Diagnosis (1) Adjustment disorder with anxious mood - Response to Treatment Response to Treatment: Improved - Prognosis Prognosis: Good - Treatment Plan Treatment Plan Recommendations: Change Treatment Plan/Goals Changes in Treatment Plan Goals: Plan to release from care since mood improved and increase awareness of situation and need for compensatory strategies. Procedures - Intervention Interventions: Cognitive/Behavioral Therapy - Modality Modality: Psychotherapy 30 minutes - Participants Therapy Participant: Patient - Session Time Session Start Time: 10:30 Session Stop Time: 11:00
[2019-02-10] MEDS: Acetaminophen 325 MG TABLET PO PRN (20:16)
[2019-02-11] MEDS: *HR* Heparin 5,000 UNIT/ML VIAL SQ SCH ×2 (05:58→18:42)
[2019-02-11] MEDS: Sennosides 8.6 MG TABLET PO SCH ×2 (08:00→20:35)
[2019-02-11] MEDS: amLODIPine 5 MG TABLET PO SCH (08:00)
[2019-02-11] MEDS: Cholecalciferol (D-3) 1,000 UNIT (25MCG) TABLET PO SCH (08:00)
[2019-02-11] MEDS: Aspirin Enteric Coated 81 MG Tablet PO SCH (08:00)
[2019-02-11] MEDS: *HR* Ticagrelor 90 MG TABLET PO SCH ×2 (08:01→20:35)
[2019-02-11] MEDS: Magnesium Oxide 400 MG TABLET PO SCH ×2 (08:01→20:35)
--- NOTE | 2019-02-11 09:15 | Internal Med Progress Note ---
Date of Encounter: 02/11/19 Time of Encounter: 09:13 - Assessment and plan (1) Acute right MCA stroke Current Visit: No Status: Acute Assessment and plan: Patient is progressing well. Left upper extremity now is pruritic with 3/5 muscle strength. Left lower extremity remains at 4/5 muscle strength but also remains at 3/5 muscle strength for his dorsiflexion. Right extremities remain 5/5 muscle strength. Patient continues to progress with physical therapy. He with current plan of care (2) Hypertension, essential, benign Current Visit: No Status: Chronic Assessment and plan: Vital signs stable. We will continue with current medications. (3) CKD (chronic kidney disease) Current Visit: Yes Status: Acute Assessment and plan: Patient's renal function has been improving. Most recent creatinine is at 1.35, which has remained stable. We will continue to monitor patient's renal status through serial labs. Qualifiers: Chronic kidney disease stage: unspecified stage Qualified Code(s): N18.9 - Chronic kidney disease, unspecified (4) Venous aneurysm Current Visit: Yes Status: Acute Assessment and plan: Patient had follow-up ultrasound of the left groin pseudoaneurysm which showed a slight increase in measurements. Plan is for patient to be transported to for outpatient treatment of the pseudoaneurysm. We will hold patient's Brilenta and will hold his Heparin at least 12 hrs prior to his procedure - Time Spent With Patient less than 15 minutes - Subjective Interval history: Patient appears relaxed currently denies any discomforts or shortness of breath. Patient states that he has been having increased movement to his left upper extremity is very pleased with this. States that he feels that therapy is progressing well for him. Patient is being prepared to go to [place] for treatment for pseudoaneurysm on a outpatient basis. Patient had a repeat ultrasound of the left groin pseudoaneurysm which showed a slight increase in size. Denies any pain to his left groin area. Distal CV checks normal. - Constitutional Vitals: Temp Pulse Resp BP Pulse Ox 98.1 F 61 16 127/68 95 02/11/19 07:31 02/11/19 07:31 02/11/19 07:31 02/11/19 07:31 02/11/19 07:31 General appearance: Present: A&O X 3, pleasant, no acute distress, answers questions appropriately - Head Head exam: Present: atraumatic, normocephalic - Eye Eye exam: Present: PERRL, conjuntiva pink, sclera anicteric Pupils: Present: PERRL - Neck Neck exam general surgery: Present: supple, trachea midline. Absent: lymphadenopathy - Respiratory Respiratory exam: Present: CTAB. Absent: accessory muscle use, rales, rhonchi, wheezes - Cardiovascular Cardiovascular exam: Present: RRR, +S1, +S2. Absent: diastolic murmur, gallop, rubs, systolic murmur - GI/Abdominal GI/Abdominal exam: Present: normal bowel sounds, soft, no peritoneal signs. Absent: distended, tenderness - Extremities Exam Extremities exam: Present: warm, radial pulses palpable and symmetrical. Absent: calf tenderness, cyanotic, pedal edema Additional comments: Patient continues to complain of tenderness on his left ankle during range of motion. Patient continues to have slight edema but no limits to range of motion. - Neurological Exam Neurological exam: Present: CN II-XII intact, oriented X3. Absent: pronater drift, facial droop, speech deficit Additional comments: Continues with left hemiparesis with left upper extremity and 3/5 and left lower extremity at 4/5, except for dorsiflexion which continues at 3/5. - Skin Skin exam: Present: dry, intact Internal Medicine: Result - Labs CBC & Chem 7: 02/06/19 05:05 02/06/19 05:05 - ABG Interpretation ABG results: PT/INR, D-dimer PT 12.7 Seconds (9.4-12.1) H 02/10/19 11:29 Consult Discharge Plan - Plan Referrals: Danay Swan [Primary Care Provider] -
[2019-02-11] MEDS: Acetaminophen 325 MG TABLET PO PRN (20:35)
[2019-02-12] MEDS: *HR* Heparin 5,000 UNIT/ML VIAL SQ SCH ×2 (04:42→17:02)
[2019-02-12] MEDS: *HR* Ticagrelor 90 MG TABLET PO SCH ×2 (08:06→21:05)
[2019-02-12] MEDS: Cholecalciferol (D-3) 1,000 UNIT (25MCG) TABLET PO SCH (08:07)
[2019-02-12] MEDS: Acetaminophen 325 MG TABLET PO PRN ×2 (08:07→21:04)
[2019-02-12] MEDS: amLODIPine 5 MG TABLET PO SCH (08:07)
[2019-02-12] MEDS: Aspirin Enteric Coated 81 MG Tablet PO SCH (08:07)
[2019-02-12] MEDS: Magnesium Oxide 400 MG TABLET PO SCH ×2 (08:07→21:05)
[2019-02-12] MEDS: Sennosides 8.6 MG TABLET PO SCH ×2 (08:08→21:04)
--- NOTE | 2019-02-12 10:47 | Internal Med Progress Note ---
Date of Encounter: 02/12/19 Time of Encounter: 10:45 - Assessment and plan (1) Acute right MCA stroke Current Visit: No Status: Acute Assessment and plan: Patient is progressing well. Left upper extremity now is pruritic with 3+/5 muscle strength. Left lower extremity remains at 4/5 muscle strength but also remains at 3/5 muscle strength for his dorsiflexion. Right extremities remain 5/5 muscle strength. Patient continues to progress with physical therapy. He with current plan of care (2) Hypertension, essential, benign Current Visit: No Status: Chronic Assessment and plan: Vital signs stable. We will continue with current medications. (3) CKD (chronic kidney disease) Current Visit: Yes Status: Acute Assessment and plan: Patient's renal function has been improving. Most recent creatinine is at 1.35, which has remained stable. We will continue to monitor patient's renal status through serial labs. Qualifiers: Chronic kidney disease stage: unspecified stage Qualified Code(s): N18.9 - Chronic kidney disease, unspecified (4) Venous aneurysm Current Visit: Yes Status: Acute Assessment and plan: Patient is return from his procedure for treatment of his left groin pseudoaneurysm. Patient had complaints of pain to the side during the procedure but states that his pain is resolved overnight. Right groin site appears healthy - Subjective Interval history: Patient appears relaxed right denies any discomforts shortness of breath. Patient states that he had his procedure performed yesterday and a complaint of pain to the injection site of the left groin, but states that that has resolved overnight. Patient states that he is having to be participating in physical therapy - Constitutional Vitals: Temp Pulse Resp BP Pulse Ox 97.9 F 59 16 144/61 97 02/12/19 07:02 02/12/19 07:02 02/12/19 07:02 02/12/19 07:02 02/12/19 07:02 General appearance: Present: A&O X 3, pleasant, no acute distress, answers questions appropriately - Head Head exam: Present: atraumatic, normocephalic - Eye Eye exam: Present: PERRL, conjuntiva pink, sclera anicteric Pupils: Present: PERRL - Neck Neck exam general surgery: Present: supple, trachea midline. Absent: lymphadenopathy - Respiratory Respiratory exam: Present: decreased breath sounds, CTAB. Absent: accessory muscle use, rales, rhonchi, wheezes - Cardiovascular Cardiovascular exam: Present: RRR, +S1, +S2. Absent: diastolic murmur, gallop, rubs, systolic murmur - GI/Abdominal GI/Abdominal exam: Present: normal bowel sounds, soft, no peritoneal signs. Absent: distended, tenderness - Extremities Exam Extremities exam: Present: warm, radial pulses palpable and symmetrical. Absent: calf tenderness, cyanotic, pedal edema Additional comments: Continued complaints of tenderness to left ankle on range of motion. Ankle brace in place. - Neurological Exam Neurological exam: Present: CN II-XII intact, oriented X3. Absent: pronater drift, facial droop, speech deficit Additional comments: Patient continues to show left hemiparesis with left upper extremity at 3+/5. And left lower extremity and 4/5. Patient noted to continue to have significant weakness to dorsiflexion which is at 3/5. Patient has a brace in place to left foot. - Skin Skin exam: Present: dry, intact Internal Medicine: Result - Labs CBC & Chem 7: 02/06/19 05:05 02/06/19 05:05 - ABG Interpretation ABG results: PT/INR, D-dimer PT 12.7 Seconds (9.4-12.1) H 02/10/19 11:29 Consult Discharge Plan - Plan Referrals: Danay Swan [Primary Care Provider] -
[2019-02-13] MEDS: *HR* Heparin 5,000 UNIT/ML VIAL SQ SCH ×2 (04:05→17:29)
[2019-02-13 06:05] LABS: Carbon Dioxide 27 mEq/L (23-29); Glucose 115 mg/dL (70-105); Potassium 3.7 mEq/L (3.5-5.1); Sodium 141 mEq/L (136-145)
[2019-02-13 06:08] LABS: BUN/Creatinine Ratio 16 (6-26); Blood Urea Nitrogen 22 mg/dL (8-23); Chloride 107 mEq/L (98-107); Osmolality,Calculated 296 (280-300); eGFR For African Americans > 60 (> 60); eGFR For Non-African Americans 50 (> 60)
[2019-02-13] MEDS: Sennosides 8.6 MG TABLET PO SCH ×2 (09:03→20:44)
[2019-02-13] MEDS: amLODIPine 5 MG TABLET PO SCH (09:04)
[2019-02-13] MEDS: Cholecalciferol (D-3) 1,000 UNIT (25MCG) TABLET PO SCH (09:04)
[2019-02-13] MEDS: Aspirin Enteric Coated 81 MG Tablet PO SCH (09:04)
[2019-02-13] MEDS: Magnesium Oxide 400 MG TABLET PO SCH ×2 (09:04→20:43)
[2019-02-13] MEDS: *HR* Ticagrelor 90 MG TABLET PO SCH ×2 (09:04→20:43)
--- NOTE | 2019-02-13 12:44 | Internal Med Progress Note ---
Date of Encounter: 02/13/19 Time of Encounter: 12:42 - Assessment and plan (1) Acute right MCA stroke Current Visit: No Status: Acute Assessment and plan: He continues to make progress with ongoing improvement in both upper and lower extremities. (2) CKD (chronic kidney disease) Current Visit: Yes Status: Acute Assessment and plan: Stable. Qualifiers: Chronic kidney disease stage: unspecified stage Qualified Code(s): N18.9 - Chronic kidney disease, unspecified (3) Hypertension, essential, benign Current Visit: No Status: Chronic Assessment and plan: Controlled. (4) Venous aneurysm Current Visit: Yes Status: Acute Assessment and plan: Status post injection and apparently stable. Follow-up is uncertain to me but we will investigate. (5) Depression, reactive Current Visit: No Status: Acute Assessment and plan: Improved, symptomatically. - Subjective Interval history: Patient is feeling well and he has no new complaints. He states he has minimal discomfort in the left groin region, where he had his injection. Bowels move this morning. No bladder problems. Patient has no complaint of chest discomfort, dyspnea, orthopnea, palpitations, nausea or vomiting, constipation or diarrhea, other changes in bowel habits, difficulty with urination, rash or itching, or other new complaints, except as mentioned above. Review of systems is otherwise negative. I discussed management of patient's care with nursing staff. - Constitutional Vitals: Temp Pulse Resp BP Pulse Ox 97.8 F 57 15 138/66 97 02/13/19 08:07 02/13/19 08:07 02/13/19 08:07 02/13/19 08:07 02/13/19 08:07 Exam: Examination: (Except as mentioned above): General: In no apparent distress. Alert and oriented 3. Nondiaphoretic. Head: Atraumatic and normocephalic. Respiratory: No use of accessory muscles. Lungs are clear throughout. Normal airflow. Cardiovascular: Regular rate and rhythm without murmur appreciated. Abdomen: Bowel sounds are normal. No hepatosplenomegaly mass or tenderness appreciated. Obese and therefore difficult to palpate deeply. Patient is examined upright in chair and this also limits exam. Extremities: No cyanosis clubbing or edema. Skin: Warm and non-diaphoretic with no new lesions noted. Internal Medicine: Result - Labs CBC & Chem 7: 02/06/19 05:05 02/13/19 05:10 Labs: BMP 02/13/19 05:10 Sodium 141 Potassium 3.7 Chloride 107 Carbon Dioxide 27 BUN 22 Creatinine 1.40 H Glucose 115 H Calcium 9.0 - ABG Interpretation ABG results: PT/INR, D-dimer PT 12.7 Seconds (9.4-12.1) H 02/10/19 11:29 Consult Discharge Plan - Plan Referrals: Danay Swan [Primary Care Provider] -
[2019-02-13] MEDS: Acetaminophen 325 MG TABLET PO PRN (20:44)
[2019-02-14] MEDS: *HR* Heparin 5,000 UNIT/ML VIAL SQ SCH ×2 (05:58→17:59)
[2019-02-14] MEDS: Cholecalciferol (D-3) 1,000 UNIT (25MCG) TABLET PO SCH (09:00)
[2019-02-14] MEDS: Aspirin Enteric Coated 81 MG Tablet PO SCH (09:00)
[2019-02-14] MEDS: amLODIPine 5 MG TABLET PO SCH (09:00)
[2019-02-14] MEDS: Magnesium Oxide 400 MG TABLET PO SCH ×2 (09:01→20:56)
[2019-02-14] MEDS: Sennosides 8.6 MG TABLET PO SCH (09:01)
[2019-02-14] MEDS: *HR* Ticagrelor 90 MG TABLET PO SCH ×2 (09:10→20:56)
--- NOTE | 2019-02-14 16:05 | Internal Med Progress Note ---
Date of Encounter: 02/14/19 Time of Encounter: 16:03 - Assessment and plan (1) Acute right MCA stroke Current Visit: No Status: Acute Assessment and plan: Patient will continue with therapies, tomorrow. Improvement continues. (2) CKD (chronic kidney disease) Current Visit: Yes Status: Acute Assessment and plan: Stable. Qualifiers: Chronic kidney disease stage: unspecified stage Qualified Code(s): N18.9 - Chronic kidney disease, unspecified (3) Hypertension, essential, benign Current Visit: No Status: Chronic Assessment and plan: Moderately controlled. (4) Venous aneurysm Current Visit: Yes Status: Acute Assessment and plan: Apparently stable. Still do not know about necessary follow-up. (5) Depression, reactive Current Visit: No Status: Acute Assessment and plan: Clinically improved. - Subjective Interval history: Patient is still feeling well. His bowels are normal, to loose, however he feels like he is going to or 3 times a day and would like to have his laxative regimen decreased. He denies other problems. He continues to have improvement in his left upper and lower extremity, more in his hand. Patient has no complaint of chest discomfort, dyspnea, orthopnea, palpitations, nausea or vomiting, constipation or diarrhea, other changes in bowel habits, difficulty with urination, rash or itching, or other new complaints, except as mentioned above. Review of systems is otherwise negative. I discussed management of patient's care with nursing staff. - Constitutional Vitals: Temp Pulse Resp BP Pulse Ox 98.1 F 92 15 133/75 95 02/14/19 08:21 02/14/19 08:21 02/14/19 08:21 02/14/19 08:21 02/14/19 08:21 Exam: Examination: (Except as mentioned above): General: In no apparent distress. Alert and oriented 3. Nondiaphoretic. Head: Atraumatic and normocephalic. Respiratory: No use of accessory muscles. Lungs are clear throughout. Normal airflow. Cardiovascular: Regular rate and rhythm without murmur appreciated. Abdomen: Bowel sounds are normal. No hepatosplenomegaly mass or tenderness appreciated. Obese and therefore difficult to palpate deeply. Patient is examined upright in chair and this also limits exam. Extremities: No cyanosis clubbing or edema. Skin: Warm and non-diaphoretic with no new lesions noted. Internal Medicine: Result - Labs CBC & Chem 7: 02/06/19 05:05 02/13/19 05:10 - ABG Interpretation ABG results: PT/INR, D-dimer PT 12.7 Seconds (9.4-12.1) H 02/10/19 11:29 Consult Discharge Plan - Plan Referrals: Danay Swan [Primary Care Provider] -
[2019-02-14] MEDS: Acetaminophen 325 MG TABLET PO PRN (20:56)
[2019-02-15] MEDS: *HR* Heparin 5,000 UNIT/ML VIAL SQ SCH ×2 (05:35→18:10)
[2019-02-15] MEDS: amLODIPine 5 MG TABLET PO SCH (08:09)
[2019-02-15] MEDS: Cholecalciferol (D-3) 1,000 UNIT (25MCG) TABLET PO SCH (08:09)
[2019-02-15] MEDS: Aspirin Enteric Coated 81 MG Tablet PO SCH (08:09)
[2019-02-15] MEDS: *HR* Ticagrelor 90 MG TABLET PO SCH ×2 (08:09→21:13)
[2019-02-15] MEDS: Magnesium Oxide 400 MG TABLET PO SCH ×2 (08:09→21:13)
--- NOTE | 2019-02-15 11:45 | Internal Med Progress Note ---
Date of Encounter: 02/15/19 Time of Encounter: 10:30 - Assessment and plan (1) Acute right MCA stroke Current Visit: No Status: Acute Assessment and plan: Doing well with therapies. Improvements persist. (2) CKD (chronic kidney disease) Current Visit: Yes Status: Acute Assessment and plan: Stable prolapse today. Qualifiers: Chronic kidney disease stage: unspecified stage Qualified Code(s): N18.9 - Chronic kidney disease, unspecified (3) Hypertension, essential, benign Current Visit: No Status: Chronic Assessment and plan: Controlled. (4) Venous aneurysm Current Visit: Yes Status: Acute Assessment and plan: Clinically stable. (5) Depression, reactive Current Visit: No Status: Acute Assessment and plan: Improved. - Subjective Interval history: Patient is without complaint. He is participating in therapy and has no problems. Bowels remain slightly loose but not having diarrhea and not as bad as before. Patient has no complaint of chest discomfort, dyspnea, orthopnea, palpitations, nausea or vomiting, constipation or diarrhea, other changes in bowel habits, difficulty with urination, rash or itching, or other new complaints, except as mentioned above. Review of systems is otherwise negative. I discussed management of patient's care with nursing staff. - Constitutional Vitals: Temp Pulse Resp BP Pulse Ox 97.8 F 59 15 121/63 97 02/15/19 07:11 02/15/19 07:11 02/15/19 07:11 02/15/19 07:11 02/15/19 07:11 Exam: Examination: (Except as mentioned above): General: In no apparent distress. Alert and oriented 3. Nondiaphoretic. Head: Atraumatic and normocephalic. Respiratory: No use of accessory muscles. Lungs are clear throughout. Normal airflow. Cardiovascular: Regular rate and rhythm without murmur appreciated. Abdomen: Bowel sounds are normal. No hepatosplenomegaly mass or tenderness appreciated. Obese and therefore difficult to palpate deeply. Patient is examined upright in chair and this also limits exam. Extremities: No cyanosis clubbing or edema. Skin: Warm and non-diaphoretic with no new lesions noted. Internal Medicine: Result - Labs CBC & Chem 7: 02/06/19 05:05 02/13/19 05:10 - ABG Interpretation ABG results: PT/INR, D-dimer PT 12.7 Seconds (9.4-12.1) H 02/10/19 11:29 Consult Discharge Plan - Plan Referrals: Danay Swan [Primary Care Provider] -
[2019-02-15] MEDS: Acetaminophen 325 MG TABLET PO PRN (21:13)
[2019-02-16] MEDS: *HR* Heparin 5,000 UNIT/ML VIAL SQ SCH ×2 (04:38→17:31)
[2019-02-16] MEDS: Aspirin Enteric Coated 81 MG Tablet PO SCH (08:20)
[2019-02-16] MEDS: amLODIPine 5 MG TABLET PO SCH (08:20)
[2019-02-16] MEDS: Cholecalciferol (D-3) 1,000 UNIT (25MCG) TABLET PO SCH (08:20)
[2019-02-16] MEDS: *HR* Ticagrelor 90 MG TABLET PO SCH ×2 (08:21→19:49)
[2019-02-16] MEDS: Magnesium Oxide 400 MG TABLET PO SCH ×2 (08:21→19:48)
--- NOTE | 2019-02-16 10:21 | Internal Med Progress Note ---
Date of Encounter: 02/16/19 Time of Encounter: 10:19 - Assessment and plan (1) Acute right MCA stroke Current Visit: No Status: Acute Assessment and plan: Patient is progressing well. Left extremities at 4/5 muscle strength but also remains at 3/5 muscle strength for his dorsiflexion. Right extremities remain 5/5 muscle strength. Patient continues to progress with physical therapy. He with current plan of care (2) Hypertension, essential, benign Current Visit: No Status: Chronic Assessment and plan: Vital signs stable. We will continue with current medications. (3) CKD (chronic kidney disease) Current Visit: Yes Status: Acute Assessment and plan: Patient's renal function has been improving. Most recent creatinine is at 1.40, which has remained stable. We will continue to monitor patient's renal status through serial labs. Qualifiers: Chronic kidney disease stage: unspecified stage Qualified Code(s): N18.9 - Chronic kidney disease, unspecified (4) Venous aneurysm Current Visit: Yes Status: Acute Assessment and plan: Patient is return from his procedure for treatment of his left groin pseudoaneurysm. Patient denies any pain to the left groin site . Left groin site appears healthy. We will contact vascular surgeon for recommendations of follow-up for this procedure - Time Spent With Patient less than 15 minutes - Subjective Interval history: Patient appears relaxed right denies any discomforts shortness of breath. Patient denies any pain to his left groin area. Patient also states that the pain to his left ankle has resolved. - Constitutional Vitals: Temp Pulse Resp BP Pulse Ox 98.2 F 55 18 139/68 97 02/16/19 07:19 02/16/19 07:19 02/16/19 07:19 02/16/19 07:19 02/16/19 07:19 General appearance: Present: no acute distress, answers questions appropriately - Head Head exam: Present: atraumatic, normocephalic - Eye Eye exam: Present: PERRL, conjuntiva pink, sclera anicteric Pupils: Present: PERRL - Neck Neck exam general surgery: Present: supple, trachea midline. Absent: lymphadenopathy - Respiratory Respiratory exam: Present: CTAB. Absent: accessory muscle use, rales, rhonchi, wheezes - Cardiovascular Cardiovascular exam: Present: RRR, +S1, +S2. Absent: diastolic murmur, gallop, rubs, systolic murmur - GI/Abdominal GI/Abdominal exam: Present: normal bowel sounds, soft, no peritoneal signs. Absent: distended, tenderness - Extremities Exam Extremities exam: Present: warm, radial pulses palpable and symmetrical. Absent: calf tenderness, cyanotic, pedal edema Additional comments: Left ankle with mild edema. No limits to range of motion. Left ankle and foot brace in place - Neurological Exam Neurological exam: Present: CN II-XII intact, oriented X3. Absent: pronater drift, facial droop, speech deficit Additional comments: Patient continues with left hemiparesis with left extremities at 4/5 muscle strength. Patient's right extremity is 5/5 muscle strength. - Skin Skin exam: Present: dry, intact Internal Medicine: Result - Labs CBC & Chem 7: 02/06/19 05:05 02/13/19 05:10 - ABG Interpretation ABG results: PT/INR, D-dimer PT 12.7 Seconds (9.4-12.1) H 02/10/19 11:29 Consult Discharge Plan - Plan Referrals: Danay Swan [Primary Care Provider] -
[2019-02-16] MEDS: Acetaminophen 325 MG TABLET PO PRN (19:49)
[2019-02-17] MEDS: *HR* Heparin 5,000 UNIT/ML VIAL SQ SCH ×2 (05:55→16:56)
[2019-02-17] MEDS: Cholecalciferol (D-3) 1,000 UNIT (25MCG) TABLET PO SCH (07:50)
[2019-02-17] MEDS: *HR* Ticagrelor 90 MG TABLET PO SCH ×2 (07:50→20:18)
[2019-02-17] MEDS: amLODIPine 5 MG TABLET PO SCH (07:51)
[2019-02-17] MEDS: Magnesium Oxide 400 MG TABLET PO SCH ×2 (07:51→20:17)
[2019-02-17] MEDS: Aspirin Enteric Coated 81 MG Tablet PO SCH (07:51)
--- NOTE | 2019-02-17 09:57 | Internal Med Progress Note ---
Date of Encounter: 02/17/19 Time of Encounter: 09:55 - Assessment and plan (1) Acute right MCA stroke Current Visit: No Status: Acute (2) CKD (chronic kidney disease) Current Visit: Yes Status: Acute Qualifiers: Chronic kidney disease stage: unspecified stage Qualified Code(s): N18.9 - Chronic kidney disease, unspecified (3) Hypertension, essential, benign Current Visit: No Status: Chronic (4) Venous aneurysm Current Visit: Yes Status: Acute (5) Depression, reactive Current Visit: No Status: Acute - Subjective Interval history: Patient is not seen because he is gone for an outside appointment, today. I discussed management of patient's care with nursing staff. - Constitutional Vitals: Temp Pulse Resp BP Pulse Ox 98.6 F 59 16 150/69 96 02/17/19 07:39 02/17/19 07:39 02/17/19 07:39 02/17/19 07:39 02/17/19 07:39 Internal Medicine: Result - Labs CBC & Chem 7: 02/06/19 05:05 02/13/19 05:10 - ABG Interpretation ABG results: PT/INR, D-dimer PT 12.7 Seconds (9.4-12.1) H 02/10/19 11:29 Consult Discharge Plan - Plan Referrals: Danay Swan [Primary Care Provider] -
[2019-02-17] MEDS: Acetaminophen 325 MG TABLET PO PRN (20:17)
[2019-02-18] MEDS: *HR* Heparin 5,000 UNIT/ML VIAL SQ SCH ×2 (04:57→16:34)
--- NOTE | 2019-02-18 09:49 | Internal Med Progress Note ---
Date of Encounter: 02/18/19 Time of Encounter: 09:47 - Assessment and plan (1) Acute right MCA stroke Current Visit: No Status: Acute Assessment and plan: Patient is progressing well. Left extremities at 4/5 muscle strength but also remains at 3/5 muscle strength for his dorsiflexion. Right extremities remain 5/5 muscle strength. Patient had follow-up with neurology yesterday with no additional recommendations received. Patient continues to progress with physical therapy. He with current plan of care (2) Hypertension, essential, benign Current Visit: No Status: Chronic Assessment and plan: Vital signs stable. We will continue with current medications. (3) CKD (chronic kidney disease) Current Visit: Yes Status: Acute Assessment and plan: Patient's renal function has been improving. Most recent creatinine is at 1.40, which has remained stable. We will continue to monitor patient's renal status through serial labs. Qualifiers: Chronic kidney disease stage: unspecified stage Qualified Code(s): N18.9 - Chronic kidney disease, unspecified (4) Venous aneurysm Current Visit: Yes Status: Acute Assessment and plan: Patient is return from his procedure for treatment of his left groin pseudoaneurysm. Patient denies any pain to the left groin site . Left groin site appears healthy. Vascular surgeon returned a call and recommended a follow-up venous duplex the left groin in 2 weeks. - Time Spent With Patient less than 15 minutes - Subjective Interval history: Patient appears relaxed right denies any discomforts shortness of breath. Patient denies any pain to his left groin area. Patient had his follow-up with neurology yesterday with no new recommendations received. His vascular surgeon returned a call yesterday also stating that they would like to have a follow-up venous duplex of the left groin in 2 weeks. Patient also states that the pain to his left ankle has resolved. - Constitutional Vitals: Temp Pulse Resp BP Pulse Ox 98.2 F 53 16 145/72 97 02/18/19 06:50 02/18/19 06:50 02/18/19 06:50 02/18/19 06:50 02/18/19 06:50 General appearance: Present: A&O X 3, pleasant, no acute distress, answers questions appropriately - Head Head exam: Present: atraumatic, normocephalic - Eye Eye exam: Present: PERRL, conjuntiva pink, sclera anicteric Pupils: Present: PERRL - Neck Neck exam general surgery: Present: supple, trachea midline. Absent: lymp hadenopathy - Respiratory Respiratory exam: Present: decreased breath sounds, CTAB. Absent: accessory muscle use, rales, rhonchi, wheezes - Cardiovascular Cardiovascular exam: Present: RRR, +S1, +S2. Absent: diastolic murmur, gallop, rubs, systolic murmur - GI/Abdominal GI/Abdominal exam: Present: normal bowel sounds, soft, no peritoneal signs. Absent: distended, tenderness - Extremities Exam Extremities exam: Present: warm, radial pulses palpable and symmetrical. Absent: calf tenderness, cyanotic, pedal edema Additional comments: Patient shows slight nonpitting edema to his left hand and his left ankle. Continues with left ankle brace - Neurological Exam Neurological exam: Present: CN II-XII intact, oriented X3. Absent: pronater drift, facial droop, speech deficit Additional comments: Patient continues to have left hemiparesis with his muscle strength 4/5. Patient continues to have 3/5 muscle strength on his left dorsiflexion. Right extremities at 5/5 muscle strength - Skin Skin exam: Present: dry, intact Internal Medicine: Result - Labs CBC & Chem 7: 02/06/19 05:05 02/13/19 05:10 - ABG Interpretation ABG results: PT/INR, D-dimer PT 12.7 Seconds (9.4-12.1) H 02/10/19 11:29 Consult Discharge Plan - Plan Referrals: Danay Swan [Primary Care Provider] -
[2019-02-18] MEDS: Cholecalciferol (D-3) 1,000 UNIT (25MCG) TABLET PO SCH (10:14)
[2019-02-18] MEDS: *HR* Ticagrelor 90 MG TABLET PO SCH ×2 (10:14→21:30)
[2019-02-18] MEDS: Aspirin Enteric Coated 81 MG Tablet PO SCH (10:14)
[2019-02-18] MEDS: amLODIPine 5 MG TABLET PO SCH (10:14)
[2019-02-18] MEDS: Magnesium Oxide 400 MG TABLET PO SCH ×2 (10:14→21:30)
[2019-02-18] MEDS: Acetaminophen 325 MG TABLET PO PRN (21:30)
[2019-02-19] MEDS: *HR* Heparin 5,000 UNIT/ML VIAL SQ SCH ×2 (04:50→17:48)
[2019-02-19] MEDS: Magnesium Oxide 400 MG TABLET PO SCH ×2 (08:10→21:33)
[2019-02-19] MEDS: Aspirin Enteric Coated 81 MG Tablet PO SCH (08:10)
[2019-02-19] MEDS: Cholecalciferol (D-3) 1,000 UNIT (25MCG) TABLET PO SCH (08:10)
[2019-02-19] MEDS: *HR* Ticagrelor 90 MG TABLET PO SCH ×2 (08:10→21:32)
[2019-02-19] MEDS: amLODIPine 5 MG TABLET PO SCH (08:10)
--- NOTE | 2019-02-19 09:44 | Internal Med Progress Note ---
Date of Encounter: 02/19/19 Time of Encounter: 09:41 - Assessment and plan (1) Acute right MCA stroke Current Visit: No Status: Acute Assessment and plan: Patient is progressing well. Left extremities at 4/5 muscle strength but also remains at 3/5 muscle strength for his dorsiflexion. Right extremities remain 5/5 muscle strength. Patient had follow-up with neurology yesterday with no additional recommendations received. Patient continues to progress with physical therapy. He with current plan of care (2) Hypertension, essential, benign Current Visit: No Status: Chronic Assessment and plan: Vital signs stable. We will continue with current medications. (3) CKD (chronic kidney disease) Current Visit: Yes Status: Acute Assessment and plan: Patient's renal function has been improving. Most recent creatinine is at 1.40, which has remained stable. We will continue to monitor patient's renal status through serial labs. Qualifiers: Chronic kidney disease stage: unspecified stage Qualified Code(s): N18.9 - Chronic kidney disease, unspecified (4) Venous aneurysm Current Visit: Yes Status: Acute Assessment and plan: Patient is return from his procedure for treatment of his left groin pseudoaneurysm. Patient denies any pain to the left groin site . Left groin site appears healthy. Vascular surgeon returned a call and recommended a follow-up venous duplex. Doppler scheduled for next week - Time Spent With Patient less than 15 minutes - Subjective Interval history: Patient appears relaxed right denies any discomforts shortness of breath. Patient denies any pain to his left groin area. Patient had his follow-up with neurology yesterday with no new recommendations received. His vascular surgeon returned a call yesterday also stating that they would like to have a follow-up venous duplex of the left groin in 2 weeks, which has been scheduled for next week. Patient also states that the pain to his left ankle has resolved. - Constitutional Vitals: Temp Pulse Resp BP Pulse Ox 97.8 F 57 16 132/66 97 02/19/19 07:23 02/19/19 07:23 02/19/19 07:23 02/19/19 07:23 02/19/19 07:23 General appearance: Present: A&O X 3, pleasant, no acute distress, answers questions appropriately - Head Head exam: Present: atraumatic, normocephalic - Eye Eye exam: Present: PERRL, conjuntiva pink, sclera anicteric Pupils: Present: PERRL - Neck Neck exam general surgery: Present: supple, trachea midline. Absent: lymphadenopathy - Respiratory Respiratory exam: Present: CTAB. Absent: accessory muscle use, rales, rhonchi, wheezes - Cardiovascular Cardiovascular exam: Present: RRR, +S1, +S2. Absent: diastolic murmur, gallop, rubs, systolic murmur - GI/Abdominal GI/Abdominal exam: Present: normal bowel sounds, soft, no peritoneal signs. Absent: distended, tenderness - Extremities Exam Extremities exam: Present: warm, radial pulses palpable and symmetrical. Absent: calf tenderness, cyanotic, pedal edema - Neurological Exam Neurological exam: Present: CN II-XII intact, oriented X3. Absent: pronater drift, facial droop, speech deficit Additional comments: continued LE hemiparesis with MS 4/5 and RE 5/5 - Skin Skin exam: Present: dry, intact Internal Medicine: Result - Labs CBC & Chem 7: 02/06/19 05:05 02/13/19 05:10 - ABG Interpretation ABG results: PT/INR, D-dimer PT 12.7 Seconds (9.4-12.1) H 02/10/19 11:29 Consult Discharge Plan - Plan Referrals: Danay Swan [Primary Care Provider] -
[2019-02-19] MEDS: Acetaminophen 325 MG TABLET PO PRN (21:33)
[2019-02-20] MEDS: *HR* Heparin 5,000 UNIT/ML VIAL SQ SCH ×2 (05:11→17:41)
[2019-02-20] MEDS: Cholecalciferol (D-3) 1,000 UNIT (25MCG) TABLET PO SCH (08:37)
[2019-02-20] MEDS: amLODIPine 5 MG TABLET PO SCH (08:37)
[2019-02-20] MEDS: Magnesium Oxide 400 MG TABLET PO SCH ×2 (08:38→20:49)
[2019-02-20] MEDS: Aspirin Enteric Coated 81 MG Tablet PO SCH (08:38)
[2019-02-20] MEDS: *HR* Ticagrelor 90 MG TABLET PO SCH ×2 (08:38→20:50)
--- NOTE | 2019-02-20 12:06 | Internal Med Progress Note ---
Date of Encounter: 02/20/19 Time of Encounter: 12:05 - Time Spent With Patient less than 15 minutes - Subjective Interval history: no changes - Constitutional Vitals: Temp Pulse Resp BP Pulse Ox 98.9 F 61 16 140/61 96 02/20/19 06:36 02/20/19 06:36 02/20/19 06:36 02/20/19 06:36 02/20/19 06:36 General appearance: Present: A&O X 3, pleasant, no acute distress, answers questions appropriately - Respiratory Respiratory exam: Present: CTAB. Absent: accessory muscle use, rales, rhonchi, wheezes - Cardiovascular Cardiovascular exam: Present: RRR, +S1, +S2. Absent: diastolic murmur, gallop, rubs, systolic murmur - GI/Abdominal GI/Abdominal exam: Present: normal bowel sounds, soft, no peritoneal signs. Absent: distended, tenderness Internal Medicine: Result - Labs CBC & Chem 7: 02/06/19 05:05 02/13/19 05:10 - ABG Interpretation ABG results: PT/INR, D-dimer PT 12.7 Seconds (9.4-12.1) H 02/10/19 11:29 Consult Discharge Plan - Plan Referrals: Danay Swan [Primary Care Provider] -
[2019-02-20] MEDS: Acetaminophen 325 MG TABLET PO PRN (20:50)
[2019-02-21] MEDS: *HR* Heparin 5,000 UNIT/ML VIAL SQ SCH ×2 (05:13→17:57)
[2019-02-21] MEDS: amLODIPine 5 MG TABLET PO SCH (07:49)
[2019-02-21] MEDS: Magnesium Oxide 400 MG TABLET PO SCH ×2 (07:50→21:16)
[2019-02-21] MEDS: *HR* Ticagrelor 90 MG TABLET PO SCH ×2 (07:50→21:16)
[2019-02-21] MEDS: Aspirin Enteric Coated 81 MG Tablet PO SCH (07:50)
[2019-02-21] MEDS: Cholecalciferol (D-3) 1,000 UNIT (25MCG) TABLET PO SCH (07:50)
--- NOTE | 2019-02-21 12:39 | Internal Med Progress Note ---
Date of Encounter: 02/21/19 Time of Encounter: 12:30 - Time Spent With Patient less than 15 minutes - Subjective Interval history: no changes - Constitutional Vitals: Temp Pulse Resp BP Pulse Ox 97.9 F 62 16 134/64 98 02/21/19 07:45 02/21/19 07:45 02/20/19 20:22 02/21/19 07:45 02/21/19 07:45 General appearance: Present: A&O X 3, pleasant, no acute distress, answers questions appropriately - Neck Neck exam general surgery: Present: supple, trachea midline. Absent: lymphadenopathy - Respiratory Respiratory exam: Present: CTAB - Cardiovascular Cardiovascular exam: Present: RRR, +S1, +S2. Absent: diastolic murmur, gallop, rubs, systolic murmur - GI/Abdominal GI/Abdominal exam: Present: normal bowel sounds, soft, no peritoneal signs. Absent: distended, tenderness Internal Medicine: Result - Labs CBC & Chem 7: 02/06/19 05:05 02/13/19 05:10 - ABG Interpretation ABG results: PT/INR, D-dimer PT 12.7 Seconds (9.4-12.1) H 02/10/19 11:29 Consult Discharge Plan - Plan Referrals: Danay Swan [Primary Care Provider] -
[2019-02-21] MEDS: Acetaminophen 325 MG TABLET PO PRN (21:14)
[2019-02-22] MEDS: *HR* Heparin 5,000 UNIT/ML VIAL SQ SCH ×2 (05:12→17:18)
[2019-02-22] MEDS: Cholecalciferol (D-3) 1,000 UNIT (25MCG) TABLET PO SCH (08:40)
[2019-02-22] MEDS: *HR* Ticagrelor 90 MG TABLET PO SCH ×2 (08:40→21:03)
[2019-02-22] MEDS: Aspirin Enteric Coated 81 MG Tablet PO SCH (08:40)
[2019-02-22] MEDS: amLODIPine 5 MG TABLET PO SCH (08:40)
[2019-02-22] MEDS: Magnesium Oxide 400 MG TABLET PO SCH ×2 (08:40→21:04)
--- NOTE | 2019-02-22 10:25 | Internal Med Progress Note ---
Date of Encounter: 02/22/19 Time of Encounter: 10:17 - Assessment and plan (1) Acute right MCA stroke Current Visit: No Status: Acute Assessment and plan: Patient is progressing well. Left extremities at 4/5 muscle strength but also remains at 3/5 muscle strength for his dorsiflexion. Right extremities remain 5/5 muscle strength. Patient had follow-up with neurology last week with no additional recommendations received. Patient continues to progress with physical therapy. He with current plan of care (2) Hypertension, essential, benign Current Visit: No Status: Chronic Assessment and plan: Vital signs stable. We will continue with current medications. (3) CKD (chronic kidney disease) Current Visit: Yes Status: Acute Assessment and plan: Patient's renal function has been improving. Most recent creatinine is at 1.40, which has remained stable. We will continue to monitor patient's renal status through serial labs. Qualifiers: Chronic kidney disease stage: unspecified stage Qualified Code(s): N18.9 - Chronic kidney disease, unspecified (4) Venous aneurysm Current Visit: Yes Status: Acute Assessment and plan: Patient is return from his procedure for treatment of his left groin pseudoaneurysm. Patient denies any pain to the left groin site . Left groin site appears healthy. Vascular surgeon returned a call and recommended a follow-up venous duplex. Doppler scheduled for today - Time Spent With Patient less than 15 minutes - Subjective Interval history: Patient appears relaxed right denies any discomforts shortness of breath. Patient denies any pain to his left groin area. Patient was scheduled Doppler to left groin pseudoaneurysm site today. Patient states that physical therapy has been progressing well for him. - Constitutional Vitals: Temp Pulse Resp BP Pulse Ox 98.1 F 63 16 115/67 96 02/22/19 06:00 02/22/19 06:00 02/22/19 06:00 02/22/19 06:00 02/22/19 06:00 General appearance: Present: A&O X 3, pleasant, no acute distress, answers questions appropriately - Head Head exam: Present: atraumatic, normocephalic - Eye Eye exam: Present: PERRL, conjuntiva pink, sclera anicteric Pupils: Present: PERRL - Neck Neck exam general surgery: Present: supple, trachea midline. Absent: lymphadenopathy - Respiratory Respiratory exam: Present: CTAB. Absent: accessory muscle use, rales, rhonchi, wheezes - Cardiovascular Cardiovascular exam: Present: RRR, +S1, +S2. Absent: diastolic murmur, gallop, rubs, systolic murmur - GI/Abdominal GI/Abdominal exam: Present: normal bowel sounds, soft, no peritoneal signs. Absent: distended, tenderness - Extremities Exam Extremities exam: Present: warm, radial pulses palpable and symmetrical. Absent: calf tenderness, cyanotic, pedal edema Additional comments: Patient with a moderate amount of nonpitting edema to his left arm and left ankle. - Neurological Exam Neurological exam: Present: CN II-XII intact, oriented X3. Absent: pronater drift, facial droop, speech deficit Additional comments: She continues with left hemiparesis with left external remedies at 4/5 muscle strength and left dorsiflexion at 3+/5 strength. Right extremities at 5/5 m uscle strength. - Skin Skin exam: Present: dry, intact Internal Medicine: Result - Labs CBC & Chem 7: 02/22/19 10:30 02/13/19 05:10 - ABG Interpretation ABG results: PT/INR, D-dimer PT 12.7 Seconds (9.4-12.1) H 02/10/19 11:29 Consult Discharge Plan - Plan Referrals: Danay Swan [Primary Care Provider] -
[2019-02-22 10:39] LABS: Basophils # 0.1 K/mcL (0.0-0.2); Basophils % 0.8 %; Eosinophils # 0.1 K/mcL (0.0-0.6); Eosinophils % 1.9 %; Hematocrit 35.3 % (37.5-50.1); Hemoglobin 11.4 g/dL (12.9-16.9); Immature Granulocytes % 0.8 % (0-4); Lymphocytes # 1.1 K/mcL (0.6-4.6); Lymphocytes % 16.5 %; Mean Corpuscular HGB Conc 32.3 g/dL (31.6-35.5); Mean Corpuscular Volume 95.9 fL (83.0-100.0); Mean Platelet Volume 8.6 fL (9.4-12.4); Monocytes # 0.7 K/mcL (0.0-1.3); Monocytes % 10.7 %; Neutrophils # 4.4 K/mcL (1.6-8.9); Platelet Count 368 K/mcL (140-400); Red Blood Count 3.68 M/mcL (4.19-5.50); Red Cell Distribution Width 14.6 % (11.5-14.5); Segmented Neutrophils % 69.3 %; White Blood Count 6.4 K/mcL (4.3-11.1)
[2019-02-22 11:19] LABS: Alanine Aminotransferase 29 Units/L (7-52); Albumin/Globulin Ratio 1.3 (1.1-2.2); Alkaline Phosphatase 76 Units/L (34-104); Aspartate Amino Transferase 23 Units/L (13-39); BUN/Creatinine Ratio 15 (6-26); Bilirubin,Total 0.6 mg/dL (0.3-1.0); Blood Urea Nitrogen 19 mg/dL (8-23); Calcium 9.8 mg/dL (8.6-10.3); Carbon Dioxide 28 mEq/L (23-29); Chloride 103 mEq/L (98-107); Glucose 113 mg/dL (70-105); Osmolality,Calculated 293 (280-300); Potassium 3.8 mEq/L (3.5-5.1); Sodium 140 mEq/L (136-145); eGFR For African Americans > 60 (> 60); eGFR For Non-African Americans 56 (> 60)
[2019-02-22] MEDS: Acetaminophen 325 MG TABLET PO PRN (19:49)
[2019-02-23] MEDS: *HR* Heparin 5,000 UNIT/ML VIAL SQ SCH ×2 (05:38→16:53)
[2019-02-23] MEDS: amLODIPine 5 MG TABLET PO SCH (08:00)
[2019-02-23] MEDS: Cholecalciferol (D-3) 1,000 UNIT (25MCG) TABLET PO SCH (08:02)
[2019-02-23] MEDS: *HR* Ticagrelor 90 MG TABLET PO SCH ×2 (08:02→20:09)
[2019-02-23] MEDS: Magnesium Oxide 400 MG TABLET PO SCH ×2 (08:03→20:11)
[2019-02-23] MEDS: Aspirin Enteric Coated 81 MG Tablet PO SCH (08:03)
--- NOTE | 2019-02-23 12:28 | Internal Med Progress Note ---
Date of Encounter: 02/23/19 Time of Encounter: 11:25 - Assessment and plan (1) Acute right MCA stroke Current Visit: No Status: Acute Assessment and plan: Doing well with therapies. Improvements persist. He continues to have less problems with speech and more movement in his upper and lower extremity. Gait is improving as well. (2) CKD (chronic kidney disease) Current Visit: Yes Status: Acute Assessment and plan: Improved. Qualifiers: Chronic kidney disease stage: unspecified stage Qualified Code(s): N18.9 - Chronic kidney disease, unspecified (3) Hypertension, essential, benign Current Visit: No Status: Chronic Assessment and plan: Moderately controlled. (4) Venous aneurysm Current Visit: Yes Status: Acute Assessment and plan: We will try to communicate with Dr. Shen. (5) Depression, reactive Current Visit: No Status: Acute Assessment and plan: Symptomatically improved. - Subjective Interval history: Patient is without complaint. He is feeling good about his progress. He was glad that his ultrasound showed no aneurysm but I let him know we do not have the official report back, yet. Patient has no problem with bowel or bladder dysfunction. Patient has no complaint of chest discomfort, dyspnea, orthopnea, palpitations, nausea or vomiting, constipation or diarrhea, other changes in bowel habits, difficulty with urination, rash or itching, or other new complaints, except as mentioned above. Review of systems is otherwise negative. I discussed management of patient's care with nursing staff. - Constitutional Vitals: Temp Pulse Resp BP Pulse Ox 97.8 F 55 16 147/69 97 02/23/19 07:11 02/23/19 07:11 02/23/19 07:11 02/23/19 07:11 02/23/19 07:11 Exam: Examination: (Except as mentioned above): General: In no apparent distress. Alert and oriented 3. Nondiaphoretic. Head: Atraumatic and normocephalic. Respiratory: No use of accessory muscles. Lungs are clear throughout. Normal airflow. Cardiovascular: Regular rate and rhythm without murmur appreciated. Abdomen: Bowel sounds are normal. No hepatosplenomegaly mass or tenderness appreciated. Morbidly obese and therefore difficult to palpate deeply. Extremities: No cyanosis clubbing or edema. Skin: Warm and non-diaphoretic with no new lesions noted. Internal Medicine: Result - Labs CBC & Chem 7: 07/01/19 10:30 02/22/19 10:30 - ABG Interpretation ABG results: PT/INR, D-dimer PT 12.7 Seconds (9.4-12.1) H 02/10/19 11:29 Consult Discharge Plan - Plan Referrals: Danay Swan [Primary Care Provider] -
[2019-02-23] MEDS: Acetaminophen 325 MG TABLET PO PRN (20:50)
[2019-02-24] MEDS: *HR* Heparin 5,000 UNIT/ML VIAL SQ SCH ×2 (05:40→17:59)
[2019-02-24] MEDS: *HR* Ticagrelor 90 MG TABLET PO SCH ×2 (07:50→21:17)
[2019-02-24] MEDS: Aspirin Enteric Coated 81 MG Tablet PO SCH (07:50)
[2019-02-24] MEDS: amLODIPine 5 MG TABLET PO SCH (07:50)
[2019-02-24] MEDS: Magnesium Oxide 400 MG TABLET PO SCH ×2 (07:50→21:17)
[2019-02-24] MEDS: Cholecalciferol (D-3) 1,000 UNIT (25MCG) TABLET PO SCH (07:50)
--- NOTE | 2019-02-24 08:18 | Internal Med Progress Note ---
Date of Encounter: 02/24/19 Time of Encounter: 08:17 - Assessment and plan (1) Acute right MCA stroke Current Visit: No Status: Acute Assessment and plan: He continues to improve. Home-going evaluation is in process. Family meeting is planned soon. (2) CKD (chronic kidney disease) Current Visit: Yes Status: Acute Assessment and plan: Stable. Qualifiers: Chronic kidney disease stage: unspecified stage Qualified Code(s): N18.9 - Chronic kidney disease, unspecified (3) Hypertension, essential, benign Current Visit: No Status: Chronic Assessment and plan: Controlled. (4) Venous aneurysm Current Visit: Yes Status: Acute Assessment and plan: As noted in subjective. Hopefully permanently resolved. (5) Depression, reactive Current Visit: No Status: Acute Assessment and plan: Clinically stable without overt symptoms. - Subjective Interval history: Patient is without complaint. We discussed his negative venous scan at the left lower extremity. He is pleased. I let him know that we are waiting to hear from Dr. Shen's office and will proceed according to his instructions. He had a normal bowel movement this morning. He denies other problems. I told him that a family meeting is planned soon to assess for home going needs and support. Patient has no problem with bowel or bladder dysfunction. Patient has no complaint of chest discomfort, dyspnea, orthopnea, palpitations, nausea or vomiting, constipation or diarrhea, other changes in bowel habits, difficulty with urination, rash or itching, or other new complaints, except as mentioned above. Review of systems is otherwise negative. I discussed management of patient's care with nursing staff. - Constitutional Vitals: Temp Pulse Resp BP Pulse Ox 98.0 F 64 18 151/57 98 02/24/19 07:23 02/24/19 07:23 02/24/19 07:23 02/24/19 07:23 02/24/19 07:23 Exam: Examination: (Except as mentioned above): General: In no apparent distress. Alert and oriented 3. Nondiaphoretic. Head: Atraumatic and normocephalic. Respiratory: No use of accessory muscles. Lungs are clear throughout. Normal airflow. Cardiovascular: Regular rate and rhythm without murmur appreciated. Abdomen: Bowel sounds are normal. No hepatosplenomegaly mass or tenderness appreciated. Morbidly obese and therefore difficult to palpate deeply. Extremities: No cyanosis clubbing or change in edema. He has a little bit, probably 1-2+, edema to lower calf and ankle on the left. Skin: Warm and non-diaphoretic with no new lesions noted. Internal Medicine: Result - Labs CBC & Chem 7: 02/22/19 10:30 02/22/19 10:30 - ABG Interpretation ABG results: PT/INR, D-dimer PT 12.7 Seconds (9.4-12.1) H 02/10/19 11:29 Consult Discharge Plan - Plan Referrals: Danay Swan [Primary Care Provider] -
[2019-02-24] MEDS: Acetaminophen 325 MG TABLET PO PRN (21:18)
[2019-02-25] MEDS: *HR* Heparin 5,000 UNIT/ML VIAL SQ SCH ×2 (05:56→17:35)
[2019-02-25] MEDS: Aspirin Enteric Coated 81 MG Tablet PO SCH (08:54)
[2019-02-25] MEDS: amLODIPine 5 MG TABLET PO SCH (08:54)
[2019-02-25] MEDS: *HR* Ticagrelor 90 MG TABLET PO SCH ×2 (08:54→20:37)
[2019-02-25] MEDS: Cholecalciferol (D-3) 1,000 UNIT (25MCG) TABLET PO SCH (08:54)
[2019-02-25] MEDS: Magnesium Oxide 400 MG TABLET PO SCH ×2 (08:54→20:37)
--- NOTE | 2019-02-25 12:12 | Internal Med Progress Note ---
Date of Encounter: 02/26/19 Time of Encounter: 12:00 - Subjective Interval history: (1 ) CVA with debility Patient doing well. Patient was transferred back to this facility for further rehabilitation after being discharged from [facility]. Patient continues with left upper and lower extemity weakness. Left lower extremity with paresis with muscle strength 3+/5. he has been able to bear weight during transfer. Pt on brillinta (2) Hypertension, essential, benign Current Visit: No Status: Chronic Assessment and plan: Patient's vital signs stable systolic bp 120s to 130s continue Tenormin 50 mg and continue to monitor blood pressure (3) CKD (chronic kidney disease) Current Visit: Yes Status: Acute Assessment and plan: Patient's renal function has been improving. We will continue to monitor patient's renal status through serial labs. Qualifiers: Chronic kidney disease stage: unspecified stage Qualified Code(s): N18.9 - Chronic kidney disease, unspecified - Time Spent With Patient less than 15 minutes - Subjective Interval history: Patient participating in rehab, he went to [facility] for a few days after acute renal failure. He had this resolve felt to be pre renal. He was started on Brilinta. He has been stable and doing well now. Left Femoral vein most recent US clear no further problems with this - EXAM General appearance: Present: A&O X 3, pleasant - Head Head exam: Present: atraumatic, normocephalic - Eye Eye exam: Present: PERRL, conjuntiva pink, sclera anicteric Pupils: Present: PERRL - Neck Neck exam general surgery: Present: supple, trachea midline. Absent: lymphadenopathy - Respiratory Respiratory exam: Present: CTAB. Absent: accessory muscle use, rales, rhonchi, wheezes - Cardiovascular Cardiovascular exam: Present: RRR, +S1, +S2. Absent: diastolic murmur, gallop, rubs, systolic murmur - GI/Abdominal GI/Abdominal exam: Present: normal bowel sounds, soft, no peritoneal signs pt has mild ventral hernia soft reducible pt reports had prev ventral hernia repair. Absent: distended, tenderness - Extremities Exam Extremities exam: Present: warm, radial pulses palpable and symmetrical. Absent: calf tenderness, cyanotic, pedal edema Additional comments: Left leg and ankle remains slightly swollen with nonpitting edema. Slight tenderness on range of motion of left ankle - Neurological Exam Neurological exam: Present: CN II-XII intact, oriented X3, facial droop, speech deficit. Absent: pronater drift Additional comments: Patient continues with slight right facial droop and slight dysarthria. Left upper extremity plegia, left lower extremity paresis at 3+/5. Right extremities at 5/5 muscle strength. - Skin Skin exam: Present: dry, intact - Constitutional Vitals: Temp Pulse Resp BP Pulse Ox 97.6 F 57 16 138/65 97 02/25/19 07:25 02/25/19 07:25 02/25/19 07:25 02/25/19 07:25 02/25/19 07:25 Internal Medicine: Result - Labs CBC & Chem 7: 02/22/19 10:30 02/22/19 10:30 - ABG Interpretation ABG results: PT/INR, D-dimer PT 12.7 Seconds (9.4-12.1) H 02/10/19 11:29 Consult Discharge Plan - Plan Referrals: Danay Swan [Primary Care Provider] -
[2019-02-25] MEDS: Acetaminophen 325 MG TABLET PO PRN (20:37)
[2019-02-26] MEDS: *HR* Heparin 5,000 UNIT/ML VIAL SQ SCH ×2 (04:58→17:29)
[2019-02-26] MEDS: Cholecalciferol (D-3) 1,000 UNIT (25MCG) TABLET PO SCH (08:09)
[2019-02-26] MEDS: amLODIPine 5 MG TABLET PO SCH (08:09)
[2019-02-26] MEDS: Magnesium Oxide 400 MG TABLET PO SCH ×2 (08:09→20:45)
[2019-02-26] MEDS: Aspirin Enteric Coated 81 MG Tablet PO SCH (08:09)
[2019-02-26] MEDS: *HR* Ticagrelor 90 MG TABLET PO SCH ×2 (08:09→20:45)
--- NOTE | 2019-02-26 11:35 | Internal Med Progress Note ---
Date of Encounter: 02/26/19 Time of Encounter: 11:33 - Assessment and plan (1) Acute right MCA stroke Current Visit: Yes Status: Acute Assessment and plan: No new neurological deficits. Continue PT and OT. Will follow progress. Follow up with neurologist as scheduled. (2) Hypertension, essential, benign Current Visit: Yes Status: Chronic Assessment and plan: Controlled with current medication. Monitor blood pressure. (3) CKD (chronic kidney disease) Current Visit: Yes Status: Acute Assessment and plan: Stable. Avoid nephrotoxic agents. Qualifiers: Chronic kidney disease stage: unspecified stage Qualified Code(s): N18.9 - Chronic kidney disease, unspecified - Time Spent With Patient less than 15 minutes - Subjective Interval history: Participating well with therapy. Currently sitting in wheelchair. Denies any new neurological deficits. Denies fever, chills, nausea vomiting or diarrhea. Denies shortness of breath or chest pain. Maintaining appetite and hydration. Last bowel movement was this morning. - Constitutional Vitals: Temp Pulse Resp BP Pulse Ox 98.2 F 57 14 150/69 95 02/26/19 07:40 02/26/19 07:40 02/26/19 07:40 02/26/19 07:40 02/26/19 07:40 General appearance: Present: cooperative, A&O X 3, morbidly obese, pleasant, no acute distress, answers questions appropriately - Head Head exam: Present: atraumatic, normocephalic - Eye Eye exam: Present: PERRL, conjuntiva pink, sclera anicteric Pupils: Present: PERRL - Neck Neck exam general surgery: Present: supple, trachea midline. Absent: lymphadenopathy - Respiratory Respiratory exam: Present: CTAB. Absent: accessory muscle use, rales, rhonchi, wheezes - Cardiovascular Cardiovascular exam: Present: RRR, +S1, +S2. Absent: diastolic murmur, gallop, rubs, systolic murmur - GI/Abdominal GI/Abdominal exam: Present: normal bowel sounds, soft, no peritoneal signs. Absent: distended, tenderness - Extremities Exam Extremities exam: Present: warm, radial pulses palpable and symmetrical. Absent: calf tenderness, cyanotic, pedal edema - Neurological Exam Neurological exam: Present: CN II-XII intact, oriented X3, no focal deficits. Absent: pronater drift, facial droop, speech deficit - Skin Skin exam: Present: dry, intact Internal Medicine: Result - Labs CBC & Chem 7: 02/22/19 10:30 02/22/19 10:30 - ABG Interpretation ABG results: PT/INR, D-dimer PT 12.7 Seconds (9.4-12.1) H 02/10/19 11:29 Consult Discharge Plan - Plan Referrals: Danay Swan [Primary Care Provider] -
[2019-02-26] MEDS: Acetaminophen 325 MG TABLET PO PRN (20:46)
[2019-02-27] MEDS: *HR* Heparin 5,000 UNIT/ML VIAL SQ SCH ×2 (05:11→17:07)
[2019-02-27] MEDS: Aspirin Enteric Coated 81 MG Tablet PO SCH (08:27)
[2019-02-27] MEDS: amLODIPine 5 MG TABLET PO SCH (08:27)
[2019-02-27] MEDS: Cholecalciferol (D-3) 1,000 UNIT (25MCG) TABLET PO SCH (08:27)
[2019-02-27] MEDS: Magnesium Oxide 400 MG TABLET PO SCH ×2 (08:27→19:56)
[2019-02-27] MEDS: *HR* Ticagrelor 90 MG TABLET PO SCH ×2 (08:28→19:56)
[2019-02-27] MEDS: Acetaminophen 325 MG TABLET PO PRN (19:55)
[2019-02-28] MEDS: *HR* Heparin 5,000 UNIT/ML VIAL SQ SCH ×2 (04:54→17:12)
[2019-02-28] MEDS: Magnesium Oxide 400 MG TABLET PO SCH ×2 (08:34→20:04)
[2019-02-28] MEDS: amLODIPine 5 MG TABLET PO SCH (08:35)
[2019-02-28] MEDS: *HR* Ticagrelor 90 MG TABLET PO SCH ×2 (08:35→20:04)
[2019-02-28] MEDS: Cholecalciferol (D-3) 1,000 UNIT (25MCG) TABLET PO SCH (08:35)
[2019-02-28] MEDS: Aspirin Enteric Coated 81 MG Tablet PO SCH (08:35)
--- NOTE | 2019-02-28 18:49 | Internal Med Progress Note ---
Date of Encounter: 02/28/19 Time of Encounter: 17:00 - Subjective Interval history: (1 ) CVA with debility Patient doing well. Patient was transferred back to this facility for further rehabilitation after being discharged from [facility]. Patient continues with left upper and lower extemity weakness. Left lower extremity with paresis with muscle strength 3+/5. he has been able to bear weight during transfer. Pt on brillinta (2) Hypertension, essential, benign Current Visit: No Status: Chronic Assessment and plan: Patient's vital signs stable systolic bp 120s to 130s continue Tenormin 50 mg and continue to monitor blood pressure (3) CKD (chronic kidney disease) Current Visit: Yes Status: Acute Assessment and plan: Patient's renal function has been improving. We will continue to monitor patient's renal status through serial labs. Qualifiers: Chronic kidney disease stage: unspecified stage Qualified Code(s): N18.9 - Chronic kidney disease, unspecified - Time Spent With Patient less than 15 minutes - Subjective Interval history: Patient participating in rehab, he went to [facility] for a few days after acute renal failure. He had this resolve felt to be pre renal. He was started on Brilinta. He has been stable and doing well now. Left Femoral vein most recent US clear no further problems with this - EXAM General appearance: Present: A&O X 3, pleasant - Head Head exam: Present: atraumatic, normocephalic - Eye Eye exam: Present: PERRL, conjuntiva pink, sclera anicteric Pupils: Present: PERRL - Neck Neck exam general surgery: Present: supple, trachea midline. Absent: lymphadenopathy - Respiratory Respiratory exam: Present: CTAB. Absent: accessory muscle use, rales, rhonchi, wheezes - Cardiovascular Cardiovascular exam: Present: RRR, +S1, +S2. Absent: diastolic murmur, gallop, rubs, systolic murmur - GI/Abdominal GI/Abdominal exam: Present: normal bowel sounds, soft, no peritoneal signs pt has mild ventral hernia soft reducible pt reports had prev ventral hernia repair. Absent: distended, tenderness - Extremities Exam Extremities exam: Present: warm, radial pulses palpable and symmetrical. Absent: calf tenderness, cyanotic, pedal edema Additional comments: Left leg and ankle remains slightly swollen with nonpitting edema. Slight tenderness on range of motion of left ankle - Neurological Exam Neurological exam: Present: CN II-XII intact, oriented X3, facial droop, speech deficit. Absent: pronater drift Additional comments: Patient continues with slight right facial droop and slight dysarthria. Left upper extremity plegia, left lower extremity paresis at 3+/5. Right extremities at 5/5 muscle strength. - Skin Skin exam: Present: dry, intact - Constitutional Vitals: Temp Pulse Resp BP Pulse Ox 97.6 F 57 16 112/55 98 02/28/19 18:39 02/28/19 18:39 02/28/19 18:39 02/28/19 18:39 02/28/19 18:39 General appearance: Present: cooperative, A&O X 3, morbidly obese, pleasant, no acute distress, answers questions appropriately Internal Medicine: Result - Labs CBC & Chem 7: 02/22/19 10:30 02/22/19 10:30 - ABG Interpretation ABG results: PT/INR, D-dimer PT 12.7 Seconds (9.4-12.1) H 02/10/19 11:29 Consult Discharge Plan - Plan Referrals: Danay Swan [Primary Care Provider] -
[2019-02-28] MEDS: Acetaminophen 325 MG TABLET PO PRN (20:04)
[2019-03-01] MEDS: *HR* Heparin 5,000 UNIT/ML VIAL SQ SCH ×2 (05:13→16:57)
[2019-03-01 06:16] LABS: Basophils # 0.1 K/mcL (0.0-0.2); Basophils % 0.8 %; Eosinophils # 0.2 K/mcL (0.0-0.6); Eosinophils % 3.7 %; Hematocrit 32.1 % (37.5-50.1); Hemoglobin 10.3 g/dL (12.9-16.9); Immature Granulocytes % 0.6 % (0-4); Lymphocytes # 1.2 K/mcL (0.6-4.6); Lymphocytes % 19.8 %; Mean Corpuscular HGB Conc 32.1 g/dL (31.6-35.5); Mean Corpuscular Hemoglobin 30.9 pg (28.0-33.3); Mean Corpuscular Volume 96.4 fL (83.0-100.0); Mean Platelet Volume 9.3 fL (9.4-12.4); Monocytes # 0.7 K/mcL (0.0-1.3); Monocytes % 11.3 %; Platelet Count 291 K/mcL (140-400); Red Blood Count 3.33 M/mcL (4.19-5.50); Red Cell Distribution Width 14.1 % (11.5-14.5); Segmented Neutrophils % 63.8 %; White Blood Count 6.3 K/mcL (4.3-11.1)
[2019-03-01 06:33] LABS: BUN/Creatinine Ratio 15 (6-26); Blood Urea Nitrogen 18 mg/dL (8-23); Calcium 9.5 mg/dL (8.6-10.3); Carbon Dioxide 26 mEq/L (23-29); Chloride 107 mEq/L (98-107); Glucose 107 mg/dL (70-105); Osmolality,Calculated 292 (280-300); Potassium 3.7 mEq/L (3.5-5.1); Sodium 140 mEq/L (136-145); eGFR For African Americans > 60 (> 60); eGFR For Non-African Americans > 60 (> 60)
[2019-03-01] MEDS: Aspirin Enteric Coated 81 MG Tablet PO SCH (08:20)
[2019-03-01] MEDS: Cholecalciferol (D-3) 1,000 UNIT (25MCG) TABLET PO SCH (08:20)
[2019-03-01] MEDS: amLODIPine 5 MG TABLET PO SCH (08:20)
[2019-03-01] MEDS: Magnesium Oxide 400 MG TABLET PO SCH ×2 (08:20→21:10)
[2019-03-01] MEDS: *HR* Ticagrelor 90 MG TABLET PO SCH ×2 (08:20→21:09)
--- NOTE | 2019-03-01 10:46 | Internal Med Progress Note ---
Date of Encounter: 03/01/19 Time of Encounter: 10:44 - Assessment and plan (1) Acute right MCA stroke Current Visit: Yes Status: Acute Assessment and plan: No new neurological deficits. Continue PT and OT. Will follow progress. Follow up with neurologist as scheduled. (2) Hypertension, essential, benign Current Visit: Yes Status: Chronic Assessment and plan: Controlled with current medication. Monitor blood pressure. (3) CKD (chronic kidney disease) Current Visit: Yes Status: Acute Assessment and plan: Stable. Avoid nephrotoxic agents. Creatinine 1.9. Qualifiers: Chronic kidney disease stage: unspecified stage Qualified Code(s): N18.9 - Chronic kidney disease, unspecified (4) Edema of both lower extremities Current Visit: Yes Status: Acute Assessment and plan: Continue diuretics. Monitor. Discussed lowering sodium and diet. Will monitor serum protein - Time Spent With Patient less than 15 minutes - Subjective Interval history: Participating well with therapy. Denies any new neurological deficits. Denies fever, chills, nausea vomiting or diarrhea. Denies shortness of breath or chest pain. Maintaining appetite and hydration. Last bowel movement was this morning. AFL was removed to left lower extremity due to increased pain from edema - Constitutional Vitals: Temp Pulse Resp BP Pulse Ox 98.6 F 55 16 119/66 96 03/01/19 06:00 03/01/19 06:00 03/01/19 06:00 03/01/19 06:00 03/01/19 06:00 General appearance: Present: cooperative, A&O X 3, morbidly obese, pleasant, no acute distress, answers questions appropriately - Head Head exam: Present: atraumatic, normocephalic - Eye Eye exam: Present: PERRL, conjuntiva pink, sclera anicteric Pupils: Present: PERRL - Neck Neck exam general surgery: Present: supple, trachea midline. Absent: lymphadenopathy - Respiratory Respiratory exam: Present: CTAB. Absent: accessory muscle use, rales, rhonchi, wheezes - Cardiovascular Cardiovascular exam: Present: RRR, +S1, +S2. Absent: diastolic murmur, gallop, rubs, systolic murmur - GI/Abdominal GI/Abdominal exam: Present: normal bowel sounds, soft, no peritoneal signs. Absent: distended, tenderness - Extremities Exam Extremities exam: Present: warm, radial pulses palpable and symmetrical. Absent: calf tenderness, cyanotic, pedal edema Additional comments: Non-pitting edema to bilateral lower extremities - Neurological Exam Neurological exam: Present: CN II-XII intact, oriented X3, no focal deficits. Absent: pronater drift, facial droop, speech deficit - Skin Skin exam: Present: dry, intact Internal Medicine: Result - Labs CBC & Chem 7: 03/01/19 05:10 03/01/19 05:10 Labs: Short CBC 03/01/19 Range/Units 05:10 WBC 6.3 (4.3-11.1) K/mcL Hgb 10.3 L (12.9-16.9) g/dL Hct 32.1 L (37.5-50.1) % Plt Count 291 (140-400) K/mcL Neutrophils # 4.0 (1.6-8.9) K/mcL BMP 03/01/19 05:10 Sodium 140 Potassium 3.7 Chloride 107 Carbon Dioxide 26 BUN 18 Creatinine 1.19 Glucose 107 H Calcium 9.5 - ABG Interpretation ABG results: PT/INR, D-dimer PT 12.7 Seconds (9.4-12.1) H 02/10/19 11:29 Consult Discharge Plan - Plan Referrals: Danay Swan [Primary Care Provider] -
[2019-03-01] MEDS ORDERED: Furosemide 40 MG TABLET PO ONE (11:45)
[2019-03-01] MEDS: Acetaminophen 325 MG TABLET PO PRN (21:10)
[2019-03-02] MEDS: *HR* Heparin 5,000 UNIT/ML VIAL SQ SCH ×2 (04:21→17:40)
[2019-03-02] MEDS: Cholecalciferol (D-3) 1,000 UNIT (25MCG) TABLET PO SCH (08:19)
[2019-03-02] MEDS: *HR* Ticagrelor 90 MG TABLET PO SCH ×2 (08:19→19:50)
[2019-03-02] MEDS: Aspirin Enteric Coated 81 MG Tablet PO SCH (08:19)
[2019-03-02] MEDS: amLODIPine 5 MG TABLET PO SCH (08:19)
[2019-03-02] MEDS: Magnesium Oxide 400 MG TABLET PO SCH ×3 (08:21→19:50)
--- NOTE | 2019-03-02 09:03 | Internal Med Progress Note ---
Date of Encounter: 03/02/19 Time of Encounter: 09:01 - Assessment and plan (1) Acute right MCA stroke Current Visit: Yes Status: Acute Assessment and plan: No new neurological deficits. Continue PT and OT. Will follow progress. Follow up with neurologist as scheduled. (2) Hypertension, essential, benign Current Visit: Yes Status: Chronic Assessment and plan: Controlled with current medication. Monitor blood pressure. (3) CKD (chronic kidney disease) Current Visit: Yes Status: Acute Assessment and plan: Stable. Avoid nephrotoxic agents. Creatinine 1.9. Qualifiers: Chronic kidney disease stage: unspecified stage Qualified Code(s): N18.9 - Chronic kidney disease, unspecified (4) Edema of both lower extremities Current Visit: Yes Status: Acute Assessment and plan: Slightly improved after PO Lasix last night. - Subjective Interval history: Participating well with therapy. Denies any new neurological deficits. Denies fever, chills, nausea vomiting or diarrhea. Denies shortness of breath or chest pain. Maintaining appetite and hydration. Last bowel movement was this morning. Received a dose of PO Lasix yesterday for bilateral lower extremity edema, states he was up urinating quite a bit last night and feels like the swelling is improved. Family meeting was yesterday to prepare for discharge for anticipating March 12. Has home safety eval March 05. - Constitutional Vitals: Temp Pulse Resp BP Pulse Ox 97.9 F 54 16 131/65 96 03/02/19 07:00 03/02/19 07:00 03/02/19 07:00 03/02/19 07:00 03/02/19 07:00 General appearance: Present: cooperative, A&O X 3, morbidly obese, pleasant, no acute distress, answers questions appropriately - Head Head exam: Present: atraumatic, normocephalic - Eye Eye exam: Present: PERRL, conjuntiva pink, sclera anicteric Pupils: Present: PERRL - Neck Neck exam general surgery: Present: supple, trachea midline. Absent: lymphadenopathy - Respiratory Respiratory exam: Present: CTAB. Absent: accessory muscle use, rales, rhonchi, wheezes - Cardiovascular Cardiovascular exam: Present: RRR, +S1, +S2. Absent: diastolic murmur, gallop, rubs, systolic murmur - GI/Abdominal GI/Abdominal exam: Present: normal bowel sounds, soft, no peritoneal signs. Absent: distended, tenderness - Extremities Exam Extremities exam: Present: warm, radial pulses palpable and symmetrical. Absent: calf tenderness, cyanotic, pedal edema Additional comments: 1+ pitting edema BLE, left hand strength 3\5 - Neurological Exam Neurological exam: Present: CN II-XII intact, oriented X3, no focal deficits. Absent: pronater drift, facial droop, speech deficit - Skin Skin exam: Present: dry, intact Internal Medicine: Result - Labs CBC & Chem 7: 03/01/19 05:10 03/01/19 05:10 - ABG Interpretation ABG results: PT/INR, D-dimer PT 12.7 Seconds (9.4-12.1) H 02/10/19 11:29 Consult Discharge Plan - Plan Referrals: Danay Swan [Primary Care Provider] -
[2019-03-03] MEDS: *HR* Heparin 5,000 UNIT/ML VIAL SQ SCH ×2 (04:21→17:46)
[2019-03-03] MEDS: Aspirin Enteric Coated 81 MG Tablet PO SCH (08:09)
[2019-03-03] MEDS: Magnesium Oxide 400 MG TABLET PO SCH ×2 (08:09→20:58)
[2019-03-03] MEDS: *HR* Ticagrelor 90 MG TABLET PO SCH ×2 (08:09→20:57)
[2019-03-03] MEDS: Cholecalciferol (D-3) 1,000 UNIT (25MCG) TABLET PO SCH (08:09)
[2019-03-03] MEDS: amLODIPine 5 MG TABLET PO SCH (08:09)
[2019-03-03] MEDS: Acetaminophen 325 MG TABLET PO PRN ×2 (08:09→20:58)
--- NOTE | 2019-03-03 11:18 | Internal Med Progress Note ---
Date of Encounter: 03/03/19 Time of Encounter: 11:16 - Assessment and plan (1) Acute right MCA stroke Current Visit: Yes Status: Acute Assessment and plan: Patient is progressing well. Left extremities at 4/5 muscle strength but also remains at 3+/5 muscle strength for his dorsiflexion. Right extremities remain 5/5 muscle strength. Patient had follow-up with neurology last week with no additional recommendations received. Patient continues to progress with physical therapy. Continue with current plan of care (2) Hypertension, essential, benign Current Visit: Yes Status: Chronic Assessment and plan: Vital signs stable. We will continue with current medications. (3) CKD (chronic kidney disease) Current Visit: Yes Status: Acute Assessment and plan: Patient's renal function has been improving. Most recent creatinine is at 1.19, which has remained stable. We will continue to monitor patient's renal status through serial labs. Qualifiers: Chronic kidney disease stage: unspecified stage Qualified Code(s): N18.9 - Chronic kidney disease, unspecified - Time Spent With Patient less than 15 minutes - Subjective Interval history: Patient appears relaxed right denies any discomforts shortness of breath. Patient states that physical therapy has been progressing well for him. - Constitutional Vitals: Temp Pulse Resp BP Pulse Ox 97.9 F 61 14 148/63 96 03/03/19 07:09 03/03/19 07:09 03/03/19 07:09 03/03/19 07:09 03/03/19 07:09 General appearance: Present: cooperative, A&O X 3, morbidly obese, pleasant, no acute distress, answers questions appropriately - Head Head exam: Present: atraumatic, normocephalic - Eye Eye exam: Present: PERRL, conjuntiva pink, sclera anicteric Pupils: Present: PERRL - Neck Neck exam general surgery: Present: supple, trachea midline. Absent: lymphadenopathy - Respiratory Respiratory exam: Present: decreased breath sounds, CTAB. Absent: accessory muscle use, rales, rhonchi, wheezes - Cardiovascular Cardiovascular exam: Present: RRR, +S1, +S2. Absent: diastolic murmur, gallop, rubs, systolic murmur - GI/Abdominal GI/Abdominal exam: Present: normal bowel sounds, soft, no peritoneal signs. Absent: distended, tenderness - Extremities Exam Extremities exam: Present: pedal edema, warm, radial pulses palpable and symmetrical. Absent: calf tenderness, cyanotic Additional comments: Patient continues with slight edema to his left ankle which remains in a brace. Complaints of slight tenderness during range of motion. No obvious injury or de formity noted. - Neurological Exam Neurological exam: Present: CN II-XII intact, oriented X3, reflexes normal. Absent: pronater drift, facial droop, speech deficit Additional comments: Patient continues with left hemiparesis with left extremities have 4/5 muscle strength and heart extremities have 5/5 muscle strength. Patient does show 3+/5 muscle strength to left dorsiflexion. - Skin Skin exam: Present: dry, intact Internal Medicine: Result - Labs CBC & Chem 7: 03/01/19 05:10 03/01/19 05:10 - ABG Interpretation ABG results: PT/INR, D-dimer PT 12.7 Seconds (9.4-12.1) H 02/10/19 11:29 Consult Discharge Plan - Plan Referrals: Danay Swan [Primary Care Provider] -
[2019-03-04] MEDS: *HR* Heparin 5,000 UNIT/ML VIAL SQ SCH ×2 (05:14→16:56)
[2019-03-04] MEDS: Magnesium Oxide 400 MG TABLET PO SCH ×2 (08:27→20:49)
[2019-03-04] MEDS: amLODIPine 5 MG TABLET PO SCH (08:27)
[2019-03-04] MEDS: Cholecalciferol (D-3) 1,000 UNIT (25MCG) TABLET PO SCH (08:28)
[2019-03-04] MEDS: Aspirin Enteric Coated 81 MG Tablet PO SCH (08:28)
[2019-03-04] MEDS: *HR* Ticagrelor 90 MG TABLET PO SCH ×2 (08:28→20:48)
--- NOTE | 2019-03-04 10:12 | Internal Med Progress Note ---
Date of Encounter: 03/04/19 Time of Encounter: 10:10 - Assessment and plan (1) Acute right MCA stroke Current Visit: Yes Status: Acute Assessment and plan: Patient is progressing well. Left extremities at 4/5 muscle strength but also remains at 3+/5 muscle strength for his dorsiflexion. Right extremities remain 5/5 muscle strength. Patient continues to progress with physical therapy and feels that his fine motor movement on his left hand has been improving slowly. Patient continues with some complaints of tenderness to his left ankle which remains slightly swollen, which is likely secondary to his decreased range of m otion. We will inquire about a possible AFO. Continue with current plan of care (2) Hypertension, essential, benign Current Visit: Yes Status: Chronic Assessment and plan: Vital signs stable. We will continue with current medications. (3) CKD (chronic kidney disease) Current Visit: Yes Status: Acute Assessment and plan: Patient's renal function has been improving. Most recent creatinine is at 1.19, which has remained stable. We will continue to monitor patient's renal status through serial labs. Qualifiers: Chronic kidney disease stage: unspecified stage Qualified Code(s): N18.9 - Chronic kidney disease, unspecified - Time Spent With Patient less than 15 minutes - Subjective Interval history: Patient appears relaxed right denies any discomforts shortness of breath. P atient states that physical therapy has been progressing well for him. Patient states he feels he is having a slow return of his fine motor movement on the left hand. Patient being prepared for possible home visit in the next few days. Patient continues to complain of slight tenderness on his left ankle which remains slightly swollen. Patient states his tenderness comes about during range of motion. - Constitutional Vitals: Temp Pulse Resp BP Pulse Ox 97.3 F L 58 15 127/61 96 03/04/19 07:00 03/04/19 07:00 03/04/19 07:00 03/04/19 07:00 03/04/19 07:00 General appearance: Present: cooperative, A&O X 3, morbidly obese, pleasant, no acute distress, answers questions appropriately - Head Head exam: Present: atraumatic, normocephalic - Eye Eye exam: Present: PERRL, conjuntiva pink, sclera anicteric Pupils: Present: PERRL - Neck Neck exam general surgery: Present: supple, trachea midline. Absent: lymphadenopathy - Respiratory Respiratory exam: Present: CTAB. Absent: accessory muscle use, rales, rhonchi, wheezes - Cardiovascular Cardiovascular exam: Present: RRR, +S1, +S2. Absent: diastolic murmur, gallop, rubs, systolic murmur - GI/Abdominal GI/Abdominal exam: Present: normal bowel sounds, soft, no peritoneal signs. Absent: distended, tenderness - Extremities Exam Extremities exam: Present: warm, radial pulses palpable and symmetrical. Absent: calf tenderness, cyanotic, pedal edema Additional comments: Left ankle appears slightly swollen. Complaints of slight tenderness on range of motion. No limits to range of motion noted. - Neurological Exam Neurological exam: Present: CN II-XII intact, oriented X3. Absent: pronater drift, facial droop, speech deficit Additional comments: Patient continues with left hemiparesis with his left extremities at 4/5, his left dorsiflexion at 3+/5. Right extremities at 5/5. - Skin Skin exam: Present: dry, intact Internal Medicine: Result - Labs CBC & Chem 7: 03/01/19 05:10 03/01/19 05:10 - ABG Interpretation ABG results: PT/INR, D-dimer PT 12.7 Seconds (9.4-12.1) H 02/10/19 11:29 Consult Discharge Plan - Plan Referrals: Danay Swan [Primary Care Provider] -
[2019-03-04] MEDS: Acetaminophen 325 MG TABLET PO PRN (20:50)
[2019-03-05] MEDS: *HR* Heparin 5,000 UNIT/ML VIAL SQ SCH ×2 (04:42→17:41)
[2019-03-05] MEDS: amLODIPine 5 MG TABLET PO SCH (09:24)
[2019-03-05] MEDS: Magnesium Oxide 400 MG TABLET PO SCH ×2 (09:24→22:02)
[2019-03-05] MEDS: Cholecalciferol (D-3) 1,000 UNIT (25MCG) TABLET PO SCH (09:24)
[2019-03-05] MEDS: *HR* Ticagrelor 90 MG TABLET PO SCH ×2 (09:24→22:02)
[2019-03-05] MEDS: Aspirin Enteric Coated 81 MG Tablet PO SCH (09:24)
--- NOTE | 2019-03-05 10:38 | Internal Med Progress Note ---
Date of Encounter: 03/05/19 Time of Encounter: 10:36 - Assessment and plan (1) Acute right MCA stroke Current Visit: Yes Status: Acute Assessment and plan: Patient is progressing well. Left extremities at 4/5 muscle strength but also remains at 3+/5 muscle strength for his dorsiflexion. Right extremities remain 5/5 muscle strength. Patient continues to progress with physical therapy and feels that his fine motor movement on his left hand has been improving slowly. Patient continues with some complaints of tenderness to his left ankle which remains slightly swollen, which is likely secondary to his decreased range of m otion. We will inquire about a possible AFO. Continue with current plan of care (2) Hypertension, essential, benign Current Visit: Yes Status: Chronic Assessment and plan: Vital signs stable. We will continue with current medications. (3) CKD (chronic kidney disease) Current Visit: Yes Status: Acute Assessment and plan: Patient's renal function has been improving. Most recent creatinine is at 1.19, which has remained stable. We will continue to monitor patient's renal status through serial labs. Qualifiers: Chronic kidney disease stage: unspecified stage Qualified Code(s): N18.9 - Chronic kidney disease, unspecified - Time Spent With Patient less than 15 minutes - Subjective Interval history: Patient appears relaxed right denies any discomforts shortness of breath. P atient states that physical therapy has been progressing well for him. Patient states he feels he is having a slow return of his fine motor movement on the left hand. Patient being prepared for possible home visit in the next few days. Patient continues to complain of slight tenderness on his left ankle which remains slightly swollen. Patient states his tenderness comes about during range of motion. - Constitutional Vitals: Temp Pulse Resp BP Pulse Ox 97.7 F 82 16 125/56 97 03/05/19 07:00 03/05/19 07:00 03/05/19 07:00 03/05/19 07:00 03/05/19 07:00 General appearance: Present: cooperative, A&O X 3, morbidly obese, pleasant, no acute distress, answers questions appropriately - Head Head exam: Present: atraumatic, normocephalic - Eye Eye exam: Present: PERRL, conjuntiva pink, sclera anicteric Pupils: Present: PERRL - Neck Neck exam general surgery: Present: supple, trachea midline. Absent: lymphadenopathy - Respiratory Respiratory exam: Present: CTAB. Absent: accessory muscle use, rales, rhonchi, wheezes - Cardiovascular Cardiovascular exam: Present: RRR, +S1, +S2. Absent: diastolic murmur, gallop, rubs, systolic murmur - GI/Abdominal GI/Abdominal exam: Present: normal bowel sounds, soft, no peritoneal signs. Absent: distended, tenderness - Extremities Exam Extremities exam: Present: warm, radial pulses palpable and symmetrical. Absent: calf tenderness, cyanotic, pedal edema - Neurological Exam Neurological exam: Present: CN II-XII intact, oriented X3. Absent: pronater drift, facial droop, speech deficit Additional comments: Patient continues with left hemiparesis with his left extremities 4/5. Left dorsiflexion at 3+/5. Right extremities at 5/5 - Skin Skin exam: Present: dry, intact Internal Medicine: Result - Labs CBC & Chem 7: 03/01/19 05:10 03/01/19 05:10 - ABG Interpretation ABG results: PT/INR, D-dimer PT 12.7 Seconds (9.4-12.1) H 02/10/19 11:29 Consult Discharge Plan - Plan Referrals: Danay Swan [Primary Care Provider] -
[2019-03-05] MEDS: Acetaminophen 325 MG TABLET PO PRN (22:03)
[2019-03-06] MEDS: *HR* Heparin 5,000 UNIT/ML VIAL SQ SCH ×2 (05:14→18:03)
[2019-03-06] MEDS: amLODIPine 5 MG TABLET PO SCH (08:38)
[2019-03-06] MEDS: Cholecalciferol (D-3) 1,000 UNIT (25MCG) TABLET PO SCH (08:38)
[2019-03-06] MEDS: Aspirin Enteric Coated 81 MG Tablet PO SCH (08:38)
[2019-03-06] MEDS: Magnesium Oxide 400 MG TABLET PO SCH ×2 (08:39→20:22)
[2019-03-06] MEDS: *HR* Ticagrelor 90 MG TABLET PO SCH ×2 (08:39→20:22)
--- NOTE | 2019-03-06 18:05 | Internal Med Progress Note ---
Date of Encounter: 03/06/19 Time of Encounter: 17:40 - Subjective Interval history: (1 ) CVA with debility Patient doing well. Patient was transferred back to this facility for further rehabilitation after being discharged from [facility]. Patient continues with left upper and lower extemity weakness. Left lower extremity with paresis with muscle strength 3+/5. he has been able to bear weight during transfer. Pt on brillinta (2) Hypertension, essential, benign Current Visit: No Status: Chronic Assessment and plan: Patient's vital signs stable systolic bp 120s to 130s continue Tenormin 50 mg and continue to monitor blood pressure (3) CKD (chronic kidney disease) Current Visit: Yes Status: Acute Assessment and plan: Patient's renal function has been improving. We will continue to monitor patient's renal status through serial labs. Qualifiers: Chronic kidney disease stage: unspecified stage Qualified Code(s): N18.9 - Chronic kidney disease, unspecified - Time Spent With Patient less than 15 minutes - Subjective Interval history: Patient participating in rehab, he went to [facility] for a few days after acute renal failure. He had this resolve felt to be pre renal. He was started on Brilinta. He has been stable and doing well now. Left Femoral vein most recent US clear no further problems with this - EXAM General appearance: Present: A&O X 3, pleasant - Head Head exam: Present: atraumatic, normocephalic - Eye Eye exam: Present: PERRL, conjuntiva pink, sclera anicteric Pupils: Present: PERRL - Neck Neck exam general surgery: Present: supple, trachea midline. Absent: lymphadenopathy - Respiratory Respiratory exam: Present: CTAB. Absent: accessory muscle use, rales, rhonchi, wheezes - Cardiovascular Cardiovascular exam: Present: RRR, +S1, +S2. Absent: diastolic murmur, gallop, rubs, systolic murmur - GI/Abdominal GI/Abdominal exam: Present: normal bowel sounds, soft, no peritoneal signs pt has mild ventral hernia soft reducible pt reports had prev ventral hernia repair. Absent: distended, tenderness - Extremities Exam Extremities exam: Present: warm, radial pulses palpable and symmetrical. Absent: calf tenderness, cyanotic, pedal edema Additional comments: Left leg and ankle remains slightly swollen with nonpitting edema. Slight tenderness on range of motion of left ankle - Neurological Exam Neurological exam: Present: CN II-XII intact, oriented X3, facial droop, speech deficit. Absent: pronater drift Additional comments: Patient continues with slight right facial droop and slight dysarthria. Left upper extremity plegia, left lower extremity paresis at 3+/5. Right extremities at 5/5 muscle strength. - Skin Skin exam: Present: dry, intact - Constitutional Vitals: Temp Pulse Resp BP Pulse Ox 97.7 F 58 16 129/60 97 03/06/19 07:00 03/06/19 07:00 03/06/19 07:00 03/06/19 07:00 03/06/19 07:00 General appearance: Present: cooperative, A&O X 3, morbidly obese, pleasant, no acute distress, answers questions appropriately Internal Medicine: Result - Labs CBC & Chem 7: 03/01/19 05:10 03/01/19 05:10 - ABG Interpretation ABG results: PT/INR, D-dimer PT 12.7 Seconds (9.4-12.1) H 02/10/19 11:29 Consult Discharge Plan - Plan Referrals: Daany Swan [Primary Care Provider] -
[2019-03-06] MEDS: Acetaminophen 325 MG TABLET PO PRN (20:21)
[2019-03-07] MEDS: *HR* Heparin 5,000 UNIT/ML VIAL SQ SCH ×2 (05:28→17:40)
[2019-03-07] MEDS: amLODIPine 5 MG TABLET PO SCH (08:54)
[2019-03-07] MEDS: Aspirin Enteric Coated 81 MG Tablet PO SCH (08:54)
[2019-03-07] MEDS: Cholecalciferol (D-3) 1,000 UNIT (25MCG) TABLET PO SCH (08:54)
[2019-03-07] MEDS: Magnesium Oxide 400 MG TABLET PO SCH ×2 (08:54→21:21)
[2019-03-07] MEDS: *HR* Ticagrelor 90 MG TABLET PO SCH ×3 (08:59→21:21)
[2019-03-07] MEDS: Acetaminophen 325 MG TABLET PO PRN ×2 (16:20→22:10)
--- NOTE | 2019-03-07 19:30 | Internal Med Progress Note ---
Date of Encounter: 03/07/19 Time of Encounter: 15:45 - Subjective Interval history: (1 ) CVA with debility Patient doing well. Patient was transferred back to this facility for further rehabilitation after being discharged from [facility]. Patient continues with left upper and lower extemity weakness. Left lower extremity with paresis with muscle strength 3+/5. he has been able to bear weight during transfer. Pt on brillinta (2) Hypertension, essential, benign Current Visit: No Status: Chronic Assessment and plan: Patient's vital signs stable systolic bp 120s to 130s continue Tenormin 50 mg and continue to monitor blood pressure (3) CKD (chronic kidney disease) Current Visit: Yes Status: Acute Assessment and plan: Patient's renal function has been improving. We will continue to monitor patient's renal status through serial labs. Qualifiers: Chronic kidney disease stage: unspecified stage Qualified Code(s): N18.9 - Chronic kidney disease, unspecified - Time Spent With Patient less than 15 minutes - Subjective Interval history: Patient participating in rehab, no new complaints Left Femoral vein most recent US clear he is eating well - EXAM General appearance: Present: A&O X 3, pleasant - Head Head exam: Present: atraumatic, normocephalic - Eye Eye exam: Present: PERRL, conjuntiva pink, sclera anicteric Pupils: Present: PERRL - Neck Neck exam general surgery: Present: supple, trachea midline. Absent: lymphadenopathy - Respiratory Respiratory exam: Present: CTAB. Absent: accessory muscle use, rales, rhonchi, wheezes - Cardiovascular Cardiovascular exam: Present: RRR, +S1, +S2. Absent: diastolic murmur, gallop, rubs, systolic murmur - GI/Abdominal GI/Abdominal exam: Present: normal bowel sounds, soft, no peritoneal signs pt has mild ventral hernia soft reducible pt reports had prev ventral hernia repair. Absent: distended, tenderness - Extremities Exam Extremities exam: Present: warm, radial pulses palpable and symmetrical. Absent: calf tenderness, cyanotic, pedal edema Additional comments: Left leg and ankle remains slightly swollen with nonpitting edema. Slight tenderness on range of motion of left ankle - Neurological Exam Neurological exam: Present: CN II-XII intact, oriented X3, facial droop, speech deficit. Absent: pronater drift Additional comments: Patient continues with slight right facial droop and slight dysarthria. Left upper extremity plegia, left lower extremity paresis at 3+/5. Right extremities at 5/5 muscle strength. - Skin Skin exam: Present: dry, intact - Constitutional Vitals: Temp Pulse Resp BP Pulse Ox 97.7 F 58 18 116/57 97 03/07/19 18:32 03/07/19 18:32 03/07/19 18:32 03/07/19 18:32 03/07/19 18:32 General appearance: Present: cooperative, A&O X 3, morbidly obese, pleasant, no acute distress, answers questions appropriately Internal Medicine: Result - Labs CBC & Chem 7: 03/01/19 05:10 03/01/19 05:10 - ABG Interpretation ABG results: PT/INR, D-dimer PT 12.7 Seconds (9.4-12.1) H 02/10/19 11:29 Consult Discharge Plan - Plan Referrals: Danay Swan [Primary Care Provider] -
[2019-03-08] MEDS: Acetaminophen 325 MG TABLET PO PRN ×2 (05:43→18:29)
[2019-03-08] MEDS: *HR* Heparin 5,000 UNIT/ML VIAL SQ SCH ×2 (05:43→17:27)
[2019-03-08] MEDS: amLODIPine 5 MG TABLET PO SCH (08:29)
[2019-03-08] MEDS: Aspirin Enteric Coated 81 MG Tablet PO SCH (08:29)
[2019-03-08] MEDS: Cholecalciferol (D-3) 1,000 UNIT (25MCG) TABLET PO SCH (08:29)
[2019-03-08] MEDS: Magnesium Oxide 400 MG TABLET PO SCH ×2 (08:29→21:24)
[2019-03-08] MEDS: *HR* Ticagrelor 90 MG TABLET PO SCH ×2 (08:55→21:24)
--- NOTE | 2019-03-08 09:51 | Internal Med Progress Note ---
Date of Encounter: 03/08/19 Time of Encounter: 09:49 - Assessment and plan (1) Acute right MCA stroke Current Visit: Yes Status: Acute Assessment and plan: No new neurological deficits. Continue PT and OT. Will follow progress. Follow up with neurologist as scheduled. (2) Hypertension, essential, benign Current Visit: Yes Status: Chronic Assessment and plan: Controlled with current medication. Monitor blood pressure. (3) CKD (chronic kidney disease) Current Visit: Yes Status: Acute Assessment and plan: Stable. Avoid nephrotoxic agents. Creatinine 1.19. Qualifiers: Chronic kidney disease stage: unspecified stage Qualified Code(s): N18.9 - Chronic kidney disease, unspecified - Time Spent With Patient less than 15 minutes - Subjective Interval history: Participating well with therapy. Propelling self in wheelchair. Denies fever, chills, nausea vomiting or diarrhea. Denies shortness of breath or chest pain. Last bowel movement was this morning. Maintaining appetite and hydration. Had home safety eval this past Friday. Therapy states there are several things to continue to work on prior to discharge to home. - Constitutional Vitals: Temp Pulse Resp BP Pulse Ox 98.5 F 61 16 147/67 98 03/08/19 07:22 03/08/19 07:22 03/08/19 07:22 03/08/19 07:22 03/08/19 07:22 General appearance: Present: cooperative, A&O X 3, morbidly obese, pleasant, no acute distress, answers questions appropriately - Head Head exam: Present: atraumatic, normocephalic - Eye Eye exam: Present: PERRL, conjuntiva pink, sclera anicteric Pupils: Present: PERRL - Neck Neck exam general surgery: Present: supple, trachea midline. Absent: lymphadenopathy - Respiratory Respiratory exam: Present: CTAB. Absent: accessory muscle use, rales, rhonchi, wheezes - Cardiovascular Cardiovascular exam: Present: RRR, +S1, +S2. Absent: diastolic murmur, gallop, rubs, systolic murmur Additional comments: 1+ pitting edema to left lower extremity - GI/Abdominal GI/Abdominal exam: Present: normal bowel sounds, soft, no peritoneal signs. Absent: distended, tenderness - Extremities Exam Extremities exam: Present: warm, radial pulses palpable and symmetrical. Absent: calf tenderness, cyanotic, pedal edema Additional comments: Left hand strength 3\5 - Neurological Exam Neurological exam: Present: CN II-XII intact, oriented X3, no focal deficits. Absent: pronater drift, facial droop, speech deficit - Skin Skin exam: Present: dry, intact Internal Medicine: Result - Labs CBC & Chem 7: 03/01/19 05:10 03/01/19 05:10 - ABG Interpretation ABG results: PT/INR, D-dimer PT 12.7 Seconds (9.4-12.1) H 02/10/19 11:29 Consult Discharge Plan - Plan Referrals: Danay Swan [Primary Care Provider] -
[2019-03-08] MEDS: Hydrocortisone Rectal 2.5% CRM 28 GM TUBE RC SCH (21:24)
[2019-03-09] MEDS: *HR* Heparin 5,000 UNIT/ML VIAL SQ SCH ×2 (05:22→17:19)
[2019-03-09] MEDS: *HR* Ticagrelor 90 MG TABLET PO SCH ×2 (08:15→21:19)
[2019-03-09] MEDS: Cholecalciferol (D-3) 1,000 UNIT (25MCG) TABLET PO SCH (08:15)
[2019-03-09] MEDS: amLODIPine 5 MG TABLET PO SCH (08:15)
[2019-03-09] MEDS: Aspirin Enteric Coated 81 MG Tablet PO SCH (08:15)
[2019-03-09] MEDS: Magnesium Oxide 400 MG TABLET PO SCH ×2 (08:15→21:20)
[2019-03-09] MEDS: Hydrocortisone Rectal 2.5% CRM 28 GM TUBE RC SCH ×3 (08:24→21:29)
--- NOTE | 2019-03-09 10:46 | Internal Med Progress Note ---
Date of Encounter: 03/09/19 Time of Encounter: 10:44 - Assessment and plan (1) Acute right MCA stroke Current Visit: Yes Status: Acute Assessment and plan: No new neurological deficits. Continue PT and OT. Will follow progress. Follow up with neurologist as scheduled. (2) Hypertension, essential, benign Current Visit: Yes Status: Chronic Assessment and plan: Controlled with current medication. Monitor blood pressure. (3) CKD (chronic kidney disease) Current Visit: Yes Status: Acute Assessment and plan: Stable. Avoid nephrotoxic agents. monitor labs. Qualifiers: Chronic kidney disease stage: unspecified stage Qualified Code(s): N18.9 - Chronic kidney disease, unspecified - Time Spent With Patient less than 15 minutes - Subjective Interval history: Participating well with therapy. Propelling self in wheelchair. Denies fever, chills, nausea vomiting or diarrhea. Denies shortness of breath or chest pain. Last bowel movement was this morning. Maintaining appetite and hydration. here for education. - Constitutional Vitals: Temp Pulse Resp BP Pulse Ox 97.7 F 55 16 127/57 97 03/09/19 07:05 03/09/19 07:05 03/09/19 07:05 03/09/19 07:05 03/09/19 07:05 General appearance: Present: cooperative, A&O X 3, morbidly obese, pleasant, no acute distress, answers questions appropriately - Head Head exam: Present: atraumatic, normocephalic - Eye Eye exam: Present: PERRL, conjuntiva pink, sclera anicteric Pupils: Present: PERRL - Neck Neck exam general surgery: Present: supple, trachea midline. Absent: lymphadenopathy - Respiratory Respiratory exam: Present: CTAB. Absent: accessory muscle use, rales, rhonchi, wheezes - Cardiovascular Cardiovascular exam: Present: RRR, +S1, +S2. Absent: diastolic murmur, gallop, rubs, systolic murmur - GI/Abdominal GI/Abdominal exam: Present: normal bowel sounds, soft, no peritoneal signs. Absent: distended, tenderness - Extremities Exam Extremities exam: Present: warm, radial pulses palpable and symmetrical. Absent: calf tenderness, cyanotic, pedal edema Additional comments: 1+ bilat LE edema. weakness LUE, hand grasp 3/5. - Neurological Exam Neurological exam: Present: CN II-XII intact, oriented X3, no focal deficits. Absent: pronater drift, facial droop, speech deficit - Skin Skin exam: Present: dry, intact Internal Medicine: Result - Labs CBC & Chem 7: 03/01/19 05:10 03/01/19 05:10 - ABG Interpretation ABG results: PT/INR, D-dimer PT 12.7 Seconds (9.4-12.1) H 02/10/19 11:29 Consult Discharge Plan - Plan Referrals: Danya Swan [Primary Care Provider] -
[2019-03-09] MEDS: Acetaminophen 325 MG TABLET PO PRN (21:19)
[2019-03-10] MEDS: *HR* Heparin 5,000 UNIT/ML VIAL SQ SCH ×2 (05:13→17:18)
[2019-03-10] MEDS: Hydrocortisone Rectal 2.5% CRM 28 GM TUBE RC SCH ×2 (05:14→20:57)
[2019-03-10] MEDS: amLODIPine 5 MG TABLET PO SCH (08:51)
[2019-03-10] MEDS: Aspirin Enteric Coated 81 MG Tablet PO SCH (08:52)
[2019-03-10] MEDS: *HR* Ticagrelor 90 MG TABLET PO SCH ×2 (08:52→20:55)
[2019-03-10] MEDS: Cholecalciferol (D-3) 1,000 UNIT (25MCG) TABLET PO SCH (08:52)
[2019-03-10] MEDS: Magnesium Oxide 400 MG TABLET PO SCH ×2 (08:53→20:55)
--- NOTE | 2019-03-10 10:17 | Internal Med Progress Note ---
Date of Encounter: 03/10/19 Time of Encounter: 10:15 - Assessment and plan (1) Acute right MCA stroke Current Visit: Yes Status: Acute Assessment and plan: Patient is progressing well. Left extremities at +4/5 muscle strength but also remains at 3+/5 muscle strength for his dorsiflexion. Right extremities remain 5/5 muscle strength. Patient continues to progress with physical therapy and feels that his fine motor movement on his left hand has been improving slowly. Patient continues with some complaints of tenderness to his left ankle which remains slightly swollen, which is likely secondary to his decreased range of motion. Left ankle with AFO. Continue with current plan of care (2) Hypertension, essential, benign Current Visit: Yes Status: Chronic Assessment and plan: Vital signs stable. We will continue with current medications. (3) CKD (chronic kidney disease) Current Visit: Yes Status: Acute Assessment and plan: Patient's renal function has been improving. Most recent creatinine is at 1.19, which has remained stable. We will continue to monitor patient's renal status through serial labs. Qualifiers: Chronic kidney disease stage: unspecified stage Qualified Code(s): N18.9 - Chronic kidney disease, unspecified - Time Spent With Patient less than 15 minutes - Subjective Interval history: Patient appears relaxed right denies any discomforts shortness of breath. Patient states that physical therapy has been progressing well for him. Patient being prepared for possible discharge in the next coming week. - Constitutional Vitals: Temp Pulse Resp BP Pulse Ox 98.7 F 61 16 133/71 97 03/10/19 07:00 03/10/19 07:00 03/10/19 07:00 03/10/19 07:00 03/10/19 07:00 General appearance: Present: cooperative, A&O X 3, morbidly obese, pleasant, no acute distress, answers questions appropriately - Head Head exam: Present: atraumatic, normocephalic - Eye Eye exam: Present: PERRL, conjuntiva pink, sclera anicteric Pupils: Present: PERRL - Neck Neck exam general surgery: Present: supple, trachea midline. Absent: lymphadenopathy - Respiratory Respiratory exam: Present: CTAB. Absent: accessory muscle use, rales, rhonchi, wheezes - Cardiovascular Cardiovascular exam: Present: RRR, +S1, +S2. Absent: diastolic murmur, gallop, rubs, systolic murmur - GI/Abdominal GI/Abdominal exam: Present: normal bowel sounds, soft, no peritoneal signs. Absent: distended, tenderness - Extremities Exam Extremities exam: Present: warm, radial pulses palpable and symmetrical. Absent: calf tenderness, cyanotic, pedal edema Additional comments: Slight swelling noted to left lower leg and ankle which remains an AFO. - Neurological Exam Neurological exam: Present: CN II-XII intact, oriented X3. Absent: pronater drift, facial droop, speech deficit Additional comments: Patient continues with left hemiparesis with left extremities and 4+/5. Patient continues to have dorsiflex weakness on the left which continues to show at 3+/5. AFO in place. Patient continues to have difficulty with fine motor movement of left hand. Right extremities at 5/5 muscle strength. - Skin Skin exam: Present: dry, intact Internal Medicine: Result - Labs CBC & Chem 7: 03/01/19 05:10 03/01/19 05:10 - ABG Interpretation ABG results: PT/INR, D-dimer PT 12.7 Seconds (9.4-12.1) H 02/10/19 11:29 Consult Discharge Plan - Plan Referrals: Danay Swan [Primary Care Provider] -
[2019-03-10 14:22] LABS: Basophils # 0.1 K/mcL (0.0-0.2); Basophils % 0.9 %; Eosinophils # 0.1 K/mcL (0.0-0.6); Eosinophils % 1.1 %; Hematocrit 34.2 % (37.5-50.1); Hemoglobin 11.1 g/dL (12.9-16.9); Immature Granulocytes % 0.5 % (0-4); Lymphocytes # 1.3 K/mcL (0.6-4.6); Lymphocytes % 17.1 %; Mean Corpuscular HGB Conc 32.5 g/dL (31.6-35.5); Mean Corpuscular Hemoglobin 30.4 pg (28.0-33.3); Mean Corpuscular Volume 93.7 fL (83.0-100.0); Mean Platelet Volume 8.6 fL (9.4-12.4); Monocytes # 0.7 K/mcL (0.0-1.3); Monocytes % 9.5 %; Neutrophils # 5.4 K/mcL (1.6-8.9); Platelet Count 351 K/mcL (140-400); Red Blood Count 3.65 M/mcL (4.19-5.50); Red Cell Distribution Width 13.5 % (11.5-14.5); Segmented Neutrophils % 70.9 %; White Blood Count 7.6 K/mcL (4.3-11.1)
[2019-03-10 14:48] LABS: Alanine Aminotransferase 22 Units/L (7-52); Albumin 3.7 g/dL (3.5-5.7); Albumin/Globulin Ratio 1.4 (1.1-2.2); Alkaline Phosphatase 64 Units/L (34-104); Aspartate Amino Transferase 20 Units/L (13-39); BUN/Creatinine Ratio 16 (6-26); Bilirubin,Total 0.4 mg/dL (0.3-1.0); Blood Urea Nitrogen 20 mg/dL (8-23); Calcium 9.2 mg/dL (8.6-10.3); Carbon Dioxide 26 mEq/L (23-29); Chloride 105 mEq/L (98-107); Globulin 2.6 g/dL (2.4-3.5); Glucose 110 mg/dL (70-105); Osmolality,Calculated 287 (280-300); Potassium 4.1 mEq/L (3.5-5.1); Sodium 137 mEq/L (136-145); Total Protein 6.3 g/dL (6.4-8.9); eGFR For African Americans > 60 (> 60); eGFR For Non-African Americans 55 (> 60)
[2019-03-10] MEDS: Acetaminophen 325 MG TABLET PO PRN (20:55)
[2019-03-11] MEDS: *HR* Heparin 5,000 UNIT/ML VIAL SQ SCH ×2 (05:16→18:07)
[2019-03-11] MEDS: *HR* Ticagrelor 90 MG TABLET PO SCH ×2 (08:47→21:37)
[2019-03-11] MEDS: Cholecalciferol (D-3) 1,000 UNIT (25MCG) TABLET PO SCH (08:47)
[2019-03-11] MEDS: amLODIPine 5 MG TABLET PO SCH (08:47)
[2019-03-11] MEDS: Magnesium Oxide 400 MG TABLET PO SCH ×2 (08:47→21:38)
[2019-03-11] MEDS: Aspirin Enteric Coated 81 MG Tablet PO SCH (08:47)
[2019-03-11] MEDS: Hydrocortisone Rectal 2.5% CRM 28 GM TUBE RC SCH ×2 (13:18→21:46)
[2019-03-11] MEDS: Acetaminophen 325 MG TABLET PO PRN (21:37)
[2019-03-12] MEDS: *HR* Heparin 5,000 UNIT/ML VIAL SQ SCH ×2 (05:52→16:10)
--- NOTE | 2019-03-12 09:40 | Internal Med Progress Note ---
Date of Encounter: 03/11/19 Time of Encounter: 11:10 - Assessment and plan (1) Acute right MCA stroke Current Visit: Yes Status: Acute Assessment and plan: He continues to improve. A home safety visit is planned, soon. Discharge is currently set for 2 weeks from now. (2) CKD (chronic kidney disease) Current Visit: Yes Status: Acute Assessment and plan: Markedly improved on recent lab. Qualifiers: Chronic kidney disease stage: unspecified stage Qualified Code(s): N18.9 - Chronic kidney disease, unspecified (3) Hypertension, essential, benign Current Visit: Yes Status: Chronic Assessment and plan: Controlled on current regimen. (4) Venous aneurysm Current Visit: Yes Status: Acute Assessment and plan: Clinically stable. (5) Depression, reactive Current Visit: No Status: Acute Assessment and plan: Clinically stable. - Subjective Interval history: The patient was evaluated by me yesterday but the note was not complete. This documentation is being completed today for that reason. Patient is without complaint. He is doing well with therapy. He states his bladder is better with "that cream." He states bowels and bladder are working well. Patient has no complaint of chest discomfort, dyspnea, orthopnea, palpitations, nausea or vomiting, constipation or diarrhea, other changes in bowel habits, difficulty with urination, rash or itching, or other new complaints, except as mentioned above. Review of systems is otherwise negative. I discussed management of patient's care with nursing staff. - Constitutional Vitals: Temp Pulse Resp BP Pulse Ox 97.8 F 77 16 149/70 94 03/12/19 07:02 03/12/19 07:02 03/12/19 07:02 03/12/19 07:02 03/12/19 07:02 Exam: Examination: (Except as mentioned above): General: In no apparent distress. Alert and oriented 3. Nondiaphoretic. Head: Atraumatic and normocephalic. Respiratory: No use of accessory muscles. Lungs are clear throughout. Normal airflow. Cardiovascular: Regular rate and rhythm without murmur appreciated. Abdomen: Bowel sounds are normal. No hepatosplenomegaly mass or tenderness appreciated. Morbidly obese and therefore difficult to palpate deeply. Patient is examined upright in chair and this also limits exam. Extremities: No cyanosis clubbing or edema. Skin: Warm and non-diaphoretic with no new lesions noted. Neurologic: Patient continues to have left upper extremity weakness that is improving. Left lower extremity his diminished and he is wearing an AFO. Internal Medicine: Result - Labs CBC & Chem 7: 03/10/19 14:10 03/10/19 14:10 - ABG Interpretation ABG results: PT/INR, D-dimer PT 12.7 Seconds (9.4-12.1) H 02/10/19 11:29 Consult Discharge Plan - Plan Referrals: Danay Swan [Primary Care Provider] -
[2019-03-12] MEDS: Cholecalciferol (D-3) 1,000 UNIT (25MCG) TABLET PO SCH (09:45)
[2019-03-12] MEDS: amLODIPine 5 MG TABLET PO SCH (09:45)
[2019-03-12] MEDS: Aspirin Enteric Coated 81 MG Tablet PO SCH (09:45)
[2019-03-12] MEDS: Hydrocortisone Rectal 2.5% CRM 28 GM TUBE RC SCH ×2 (09:45→20:40)
[2019-03-12] MEDS: Magnesium Oxide 400 MG TABLET PO SCH ×2 (09:45→20:38)
[2019-03-12] MEDS: *HR* Ticagrelor 90 MG TABLET PO SCH ×2 (09:45→20:39)
--- NOTE | 2019-03-12 10:37 | Internal Med Progress Note ---
Date of Encounter: 03/12/19 Time of Encounter: 09:40 - Assessment and plan (1) Acute right MCA stroke Current Visit: Yes Status: Acute Assessment and plan: He is still participating in therapies.. (2) CKD (chronic kidney disease) Current Visit: Yes Status: Acute Qualifiers: Chronic kidney disease stage: unspecified stage Qualified Code(s): N18.9 - Chronic kidney disease, unspecified (3) Hypertension, essential, benign Current Visit: Yes Status: Chronic Assessment and plan: Controlled. (4) Venous aneurysm Current Visit: Yes Status: Acute Assessment and plan: No clinical change. (5) Depression, reactive Current Visit: No Status: Acute Assessment and plan: Mood is improved over several weeks ago. - Subjective Interval history: The patient is without complaint. He is pleased with progress at his perineum region. He has no other complaints. Patient has no complaint of chest discomfort, dyspnea, orthopnea, palpitations, nausea or vomiting, constipation or diarrhea, other changes in bowel habits, difficulty with urination, rash or itching, or other new complaints, except as mentioned above. Review of systems is otherwise negative. I discussed management of patient's care with nursing staff. - Constitutional Vitals: Temp Pulse Resp BP Pulse Ox 97.8 F 77 16 149/70 94 03/12/19 07:02 03/12/19 07:02 03/12/19 07:02 03/12/19 07:02 03/12/19 07:02 Exam: Examination: (Except as mentioned above): General: In no apparent distress. Alert and oriented 3. Nondiaphoretic. Head: Atraumatic and normocephalic. Respiratory: No use of accessory muscles. Lungs are clear throughout. Normal airflow. Cardiovascular: Regular rate and rhythm without murmur appreciated. Abdomen: Bowel sounds are normal. No hepatosplenomegaly mass or tenderness appreciated. Morbidly obese and therefore difficult to palpate deeply.Patient is examined upright in chair and this also limits exam. Extremities: No cyanosis clubbing or edema. Skin: Warm and non-diaphoretic with no new lesions noted. Internal Medicine: Result - Labs CBC & Chem 7: 03/10/19 14:10 03/10/19 14:10 - ABG Interpretation ABG results: PT/INR, D-dimer PT 12.7 Seconds (9.4-12.1) H 06/19/19 11:29 Consult Discharge Plan - Plan Referrals: Danay Swan [Primary Care Provider] -
[2019-03-12] MEDS: Acetaminophen 325 MG TABLET PO PRN (20:39)
[2019-03-13] MEDS: *HR* Heparin 5,000 UNIT/ML VIAL SQ SCH ×2 (05:53→18:17)
[2019-03-13] MEDS: Cholecalciferol (D-3) 1,000 UNIT (25MCG) TABLET PO SCH (08:16)
[2019-03-13] MEDS: Magnesium Oxide 400 MG TABLET PO SCH ×2 (08:16→20:26)
[2019-03-13] MEDS: Aspirin Enteric Coated 81 MG Tablet PO SCH (08:16)
[2019-03-13] MEDS: Hydrocortisone Rectal 2.5% CRM 28 GM TUBE RC SCH (08:16)
[2019-03-13] MEDS: amLODIPine 5 MG TABLET PO SCH (08:16)
[2019-03-13] MEDS: *HR* Ticagrelor 90 MG TABLET PO SCH ×2 (08:16→20:26)
--- NOTE | 2019-03-13 10:46 | Internal Med Progress Note ---
Date of Encounter: 03/13/19 Time of Encounter: 10:44 - Assessment and plan (1) Acute right MCA stroke Current Visit: Yes Status: Acute Assessment and plan: He continues to improve. Will continue therapies with home safety is planned soon.. (2) CKD (chronic kidney disease) Current Visit: Yes Status: Acute Assessment and plan: Nearly resolved. Qualifiers: Chronic kidney disease stage: unspecified stage Qualified Code(s): N18.9 - Chronic kidney disease, unspecified (3) Hypertension, essential, benign Current Visit: Yes Status: Chronic Assessment and plan: Controlled. (4) Depression, reactive Current Visit: No Status: Acute Assessment and plan: No current signs or symptoms. (5) Tinea Current Visit: Yes Status: Acute Assessment and plan: This seems likely to be job. Will use nystatin powder and follow. - Subjective Interval history: The patient is without acute complaint. He states that his bottom is now symptom-free. He has left axilla itching and he is not using deodorant because of this. He denies other problems. Patient has no complaint of chest discomfort, dyspnea, orthopnea, palpitations, nausea or vomiting, constipation or diarrhea, other changes in bowel habits, difficulty with urination, rash or itching, or other new complaints, except as mentioned above. Review of systems is otherwise negative. I discussed management of patient's care with nursing staff. - Constitutional Vitals: Temp Pulse Resp BP Pulse Ox 97.5 F L 76 18 167/72 98 03/13/19 07:00 03/13/19 07:00 03/13/19 07:00 03/13/19 07:00 03/13/19 07:00 Exam: Examination: (Except as mentioned above): General: In no apparent distress. Alert and oriented 3. Nondiaphoretic. Head: Atraumatic and normocephalic. Respiratory: No use of accessory muscles. Lungs are clear throughout. Normal airflow. Cardiovascular: Regular rate and rhythm without murmur appreciated. Abdomen: Bowel sounds are normal. No hepatosplenomegaly mass or tenderness appreciated. Morbidly obese and therefore difficult to palpate deeply. Extremities: No cyanosis clubbing or edema. Skin: Warm and non-diaphoretic with no new lesions noted but he does have well demarcated redness, axillary left. Internal Medicine: Result - Labs CBC & Chem 7: 03/10/19 14:10 03/10/19 14:10 - ABG Interpretation ABG results: PT/INR, D-dimer PT 12.7 Seconds (9.4-12.1) H 02/10/19 11:29 Consult Discharge Plan - Plan Referrals: Danay Swan [Primary Care Provider] -
[2019-03-13] MEDS: Nystatin POWDER 30 GM BOTTLE TP SCH (13:52)
[2019-03-14] MEDS: Nystatin POWDER 30 GM BOTTLE TP SCH ×3 (01:34→20:05)
[2019-03-14] MEDS: Hydrocortisone Rectal 2.5% CRM 28 GM TUBE RC SCH ×3 (01:35→20:05)
[2019-03-14] MEDS: *HR* Heparin 5,000 UNIT/ML VIAL SQ SCH ×2 (04:43→17:59)
[2019-03-14] MEDS: Cholecalciferol (D-3) 1,000 UNIT (25MCG) TABLET PO SCH (08:09)
[2019-03-14] MEDS: Aspirin Enteric Coated 81 MG Tablet PO SCH (08:09)
[2019-03-14] MEDS: Magnesium Oxide 400 MG TABLET PO SCH ×2 (08:09→20:05)
[2019-03-14] MEDS: *HR* Ticagrelor 90 MG TABLET PO SCH ×2 (08:09→20:05)
[2019-03-14] MEDS: amLODIPine 5 MG TABLET PO SCH (08:09)
--- NOTE | 2019-03-14 15:47 | Internal Med Progress Note ---
Date of Encounter: 03/14/19 Time of Encounter: 15:45 - Assessment and plan (1) Acute right MCA stroke Current Visit: Yes Status: Acute Assessment and plan: He continues to improve slowly but surely.. He is pleased that his sons have completed his ramp, at home. (2) CKD (chronic kidney disease) Current Visit: Yes Status: Acute Assessment and plan: Nearly resolved. Qualifiers: Chronic kidney disease stage: unspecified stage Qualified Code(s): N18.9 - Chronic kidney disease, unspecified (3) Hypertension, essential, benign Current Visit: Yes Status: Chronic Assessment and plan: Controlled. (4) Depression, reactive Current Visit: No Status: Acute Assessment and plan: This seems clinically stable and patient has a positive mental attitude (5) Tinea Current Visit: Yes Status: Acute - Subjective Interval history: The patient is without acute complaint. He has minimal itching in his left axilla but is pleased with progress. He states that his bottom is better. He denies bowel or bladder dysfunction. Because he is up in chair, we deferred examination of his bottom, again. Patient has no complaint of chest discomfort, dyspnea, orthopnea, palpitations, nausea or vomiting, constipation or diarrhea, other changes in bowel habits, difficulty with urination, rash or itching, or other new complaints, except as mentioned above. Review of systems is otherwise negative. I discussed management of patient's care with nursing staff. - Constitutional Vitals: Temp Pulse Resp BP Pulse Ox 97.6 F 56 18 123/63 97 03/14/19 07:21 03/14/19 07:21 03/14/19 07:21 03/14/19 07:21 03/14/19 07:21 Exam: Examination: (Except as mentioned above): General: In no apparent distress. Alert and oriented 3. Nondiaphoretic. Head: Atraumatic and normocephalic. Respiratory: No use of accessory muscles. Lungs are clear throughout. Normal airflow. Cardiovascular: Regular rate and rhythm without murmur appreciated with occasional ectopic.. Abdomen: Bowel sounds are normal. No hepatosplenomegaly mass or tenderness appreciated. Morbidly obese and therefore difficult to palpate deeply. Extremities: No cyanosis clubbing or edema. Skin: Warm and non-diaphoretic with no new lesions noted. Internal Medicine: Result - Labs CBC & Chem 7: 03/10/19 14:10 03/10/19 14:10 - ABG Interpretation ABG results: PT/INR, D-dimer PT 12.7 Seconds (9.4-12.1) H 02/10/19 11:29 Consult Discharge Plan - Plan Referrals: Danay Swan [Primary Care Provider] -
[2019-03-14] MEDS: Acetaminophen 325 MG TABLET PO PRN (20:04)
[2019-03-15] MEDS: *HR* Heparin 5,000 UNIT/ML VIAL SQ SCH ×2 (05:07→16:52)
[2019-03-15] MEDS: Acetaminophen 325 MG TABLET PO PRN ×2 (05:07→21:46)
[2019-03-15 06:49] LABS: Basophils % 0.5 %; Eosinophils # 0.2 K/mcL (0.0-0.6); Eosinophils % 2.4 %; Hematocrit 32.8 % (37.5-50.1); Hemoglobin 10.5 g/dL (12.9-16.9); Immature Granulocytes % 0.8 % (0-4); Lymphocytes # 1.3 K/mcL (0.6-4.6); Lymphocytes % 20.2 %; Mean Corpuscular Hemoglobin 30.3 pg (28.0-33.3); Mean Corpuscular Volume 94.8 fL (83.0-100.0); Mean Platelet Volume 8.7 fL (9.4-12.4); Monocytes # 0.8 K/mcL (0.0-1.3); Monocytes % 13.3 %; Neutrophils # 3.9 K/mcL (1.6-8.9); Platelet Count 312 K/mcL (140-400); Red Blood Count 3.46 M/mcL (4.19-5.50); Red Cell Distribution Width 13.6 % (11.5-14.5); Segmented Neutrophils % 62.8 %; White Blood Count 6.3 K/mcL (4.3-11.1)
[2019-03-15 07:06] LABS: BUN/Creatinine Ratio 18 (6-26); Blood Urea Nitrogen 22 mg/dL (8-23); Calcium 9.1 mg/dL (8.6-10.3); Carbon Dioxide 27 mEq/L (23-29); Chloride 107 mEq/L (98-107); Glucose 104 mg/dL (70-105); Osmolality,Calculated 292 (280-300); Potassium 3.9 mEq/L (3.5-5.1); Sodium 139 mEq/L (136-145); eGFR For African Americans > 60 (> 60); eGFR For Non-African Americans 58 (> 60)
[2019-03-15] MEDS: Nystatin POWDER 30 GM BOTTLE TP SCH ×2 (08:06→21:45)
[2019-03-15] MEDS: Hydrocortisone Rectal 2.5% CRM 28 GM TUBE RC SCH ×2 (08:06→21:45)
[2019-03-15] MEDS: amLODIPine 5 MG TABLET PO SCH (08:07)
[2019-03-15] MEDS: Aspirin Enteric Coated 81 MG Tablet PO SCH (08:07)
[2019-03-15] MEDS: *HR* Ticagrelor 90 MG TABLET PO SCH ×2 (08:07→21:45)
[2019-03-15] MEDS: Cholecalciferol (D-3) 1,000 UNIT (25MCG) TABLET PO SCH (08:07)
[2019-03-15] MEDS: Loratadine 10 MG TABLET PO SCH (08:08)
[2019-03-15] MEDS: Magnesium Oxide 400 MG TABLET PO SCH ×2 (08:08→21:46)
--- NOTE | 2019-03-15 10:10 | Internal Med Progress Note ---
Date of Encounter: 03/15/19 Time of Encounter: 10:08 - Assessment and plan (1) Acute right MCA stroke Current Visit: Yes Status: Acute Assessment and plan: He is participating well with therapies. He continues to improve. Plan for home safety evaluation and discharge, soon. (2) CKD (chronic kidney disease) Current Visit: Yes Status: Acute Assessment and plan: Stable. Qualifiers: Chronic kidney disease stage: unspecified stage Qualified Code(s): N18.9 - Chronic kidney disease, unspecified (3) Hypertension, essential, benign Current Visit: Yes Status: Chronic Assessment and plan: Well-controlled. (4) Depression, reactive Current Visit: No Status: Acute Assessment and plan: Stable clinically. (5) Tinea Current Visit: Yes Status: Acute Assessment and plan: We will continue nystatin powder. - Subjective Interval history: Patient is without complaint. He states that he had bowel movement this morning and it was normal. He denies other problems. His left axilla is nearly normal. He denies any pain or itching associated with this. Patient has no complaint of chest discomfort, dyspnea, orthopnea, palpitations, nausea or vomiting, constipation or diarrhea, other changes in bowel habits, difficulty with urination, rash or itching, or other new complaints, except as mentioned above. Review of systems is otherwise negative. I discussed management of patient's care with nursing staff. - Constitutional Vitals: Temp Pulse Resp BP Pulse Ox 97.6 F 56 16 126/67 97 03/15/19 06:35 03/15/19 06:35 03/15/19 06:35 03/15/19 06:35 03/15/19 06:35 Exam: Examination: (Except as mentioned above): General: In no apparent distress. Alert and oriented 3. Nondiaphoretic. Head: Atraumatic and normocephalic. Respiratory: No use of accessory muscles. Lungs are clear throughout. Normal airflow. Cardiovascular: Regular rate and rhythm without murmur appreciated. Abdomen: Bowel sounds are normal. No hepatosplenomegaly mass or tenderness a ppreciated. Morbidly obese and therefore difficult to palpate deeply. Patient is examined upright in chair and this also limits exam. Extremities: No cyanosis clubbing or edema. Skin: Warm and non-diaphoretic with no new lesions noted. Internal Medicine: Result - Labs CBC & Chem 7: 03/15/19 06:30 03/15/19 06:30 Labs: Short CBC 03/15/19 Range/Units 06:30 WBC 6.3 (4.3-11.1) K/mcL Hgb 10.5 L (12.9-16.9) g/dL Hct 32.8 L (37.5-50.1) % Plt Count 312 (140-400) K/mcL Neutrophils # 3.9 (1.6-8.9) K/mcL BMP 03/15/19 06:30 Sodium 139 Potassium 3.9 Chloride 107 Carbon Dioxide 27 BUN 22 Creatinine 1.23 Glucose 104 Calcium 9.1 - ABG Interpretation ABG results: PT/INR, D-dimer PT 12.7 Seconds (9.4-12.1) H 02/10/19 11:29 Consult Discharge Plan - Plan Referrals: Danay Swan [Primary Care Provider] -
--- NOTE | 2019-03-15 10:55 | Physcial Medicine-Consult Note ---
Date of Encounter: 03/15/19 Time of Encounter: 10:52 Physical Medicine - AP (1) Acute right MCA stroke Status: Acute Assessment and plan: No new neurological deficits. Continue PT, OT and speech therapy. Has been making slow progress. Follow up with neurologist as scheduled. Plan to discharge to home with . Code(s): I63.511 - Cerebral infarction due to unspecified occlusion or stenosis of right middle cerebral artery SNOMED Code(s): 542988531 (2) Hypertension, essential, benign Status: Chronic Assessment and plan: Controlled with current medication. Monitor blood pressure. Code(s): I10 - Essential (primary) hypertension SNOMED Code(s): 3189849 (3) CKD (chronic kidney disease) Status: Acute Code(s): N18.9 - Chronic kidney disease, unspecified SNOMED Code(s): 546035291 Physical Medicine - HPI - Data of Consult Patient: new to practice Consult date: 03/15/19 Requesting Physician: Bradley Doan MD Primary Care Provider: Danay Swan - Consult Narrative Reason for consult: CVA History of present illness: Mr. Torrez is a 73 year old male admitted to inpatient rehab unit s/p CVA. Patient recently was admitted to this facility for rehabilitation after experiencing a right MCA ischemic infarct and was treated with a right ICA stent while admitted at during that time. Has been participating well with therapy. Had home safety evaluation and barriers to discharge were noted and have been working on with PT and OT. Patient is wheelchair level but can ambulate with walker. Ramp was completed to their home due to stairs to enter. has received education on assisting with care. therapy discussing an overnight with at home, then scheduling a discharge date. denies any new neurological deficits. continues to have left sided weakness with hand grasp and wears an AFO to left foot. CC: Bradley Doan MD Past Med Surg Social Fam HX - Past Medical History Medical history: arthritis, CVA, hypertension, kidney stones - Past Surgical History Additional surgical history: Lumpectomy Left breast, bilateral rotator cuff repair, carpal tunnel sx, carotid stent placement - Social History Smoking Status: Never smoker Smokeless Tobacco Status: No Alcohol use: none Drug use: none - Family History Son Adopted: No Family Member Ethnicity: Non- Living Status: Hx Family Cardiac Disorders: No Hx Family Respiratory Disorders: No Hx Family Cancer: Yes Hx Family GI Disorders: No Hx Family Endocrine Disorder: No Hx Family Neuromuscular Disorders: No Hx Family Neurologic Disorders: No Hx Family HEENT Disorders: No Hx Family Autoimmune Disorders: No Medications and Allergies Acetaminophen [Tylenol] 975 mg PO Q6HR PRN 01/16/19 [History] Aspirin Enteric Coated [Aspirin EC] 81 mg PO DAILY 01/16/19 [History] Atorvastatin Calcium [Lipitor] 80 mg PO HS 01/16/19 [History] Polyethylene Glycol 3350 [MiraLAX] 34 gm PO BID 01/16/19 [History] Ticagrelor [Brilinta] 60 mg PO BID 01/16/19 [History] Triamterene-Hctz 75-50 mg Tab 01/16/19 [History] Allergy/AdvReac Type Severity Reaction Status Date / Time No Known Allergies Allergy Verified 01/16/19 22:09 Review of systems: negative except what is noted in HPI. Physical Medicine - Exam - Constitutional Vitals: Temp Pulse Resp BP Pulse Ox 97.6 F 56 16 126/67 97 03/15/19 06:35 03/15/19 06:35 03/15/19 06:35 03/15/19 06:35 03/15/19 06:35 General appearance: cooperative, morbidly obese, no acute distress - Head Head exam: Present: normal inspection, normocephalic - Eye Eye exam: Present: EOMI, normal appearance, PERRL - ENT ENT exam: Present: mucous membranes moist - Neck Neck exam: Present: full ROM, normal inspection - Respiratory Respiratory exam: Present: CTAB - Cardiovascular Cardiovascular exam: Present: RRR - GI/Abdominal GI/Abdominal exam: Present: normal bowel sounds, soft - Extremities Exam Additional comments: left hand grasp 3/5 strength, LLE 1+ pitting edema. - Neurological Exam Neurological exam: Present: alert, oriented X3 - Psychiatric Psychiatric exam: Present: normal affect, normal mood - Skin Skin exam: Present: normal color, warm Physical Medicine - Results - Labs CBC & Chem 7: 03/15/19 06:30 03/15/19 06:30 Labs: Short CBC 03/15/19 Range/Units 06:30 WBC 6.3 (4.3-11.1) K/mcL Hgb 10.5 L (12.9-16.9) g/dL Hct 32.8 L (37.5-50.1) % Plt Count 312 (140-400) K/mcL Neutrophils # 3.9 (1.6-8.9) K/mcL BMP 03/15/19 06:30 Sodium 139 Potassium 3.9 Chloride 107 Carbon Dioxide 27 BUN 22 Creatinine 1.23 Glucose 104 Calcium 9.1 - Impressions ITS Impressions Ankle X-Ray 01/27/19 16:17 IMPRESSION: No evidence of acute fracture Mild ankle swelling D/ / Rom Hyman MD / Rom Hyman MD Interpreting Provider: Rom Hyman MD Consult Discharge Plan - Plan Referrals: Danay Swan [Primary Care Provider] -
[2019-03-16] MEDS: *HR* Heparin 5,000 UNIT/ML VIAL SQ SCH ×2 (05:30→17:48)
[2019-03-16] MEDS: Aspirin Enteric Coated 81 MG Tablet PO SCH (08:51)
[2019-03-16] MEDS: amLODIPine 5 MG TABLET PO SCH (08:51)
[2019-03-16] MEDS: Cholecalciferol (D-3) 1,000 UNIT (25MCG) TABLET PO SCH (08:51)
[2019-03-16] MEDS: Hydrocortisone Rectal 2.5% CRM 28 GM TUBE RC SCH ×2 (08:51→21:27)
[2019-03-16] MEDS: *HR* Ticagrelor 90 MG TABLET PO SCH ×2 (08:51→21:24)
[2019-03-16] MEDS: Nystatin POWDER 30 GM BOTTLE TP SCH ×2 (08:51→21:27)
[2019-03-16] MEDS: Magnesium Oxide 400 MG TABLET PO SCH ×2 (08:51→21:24)
[2019-03-16] MEDS: Loratadine 10 MG TABLET PO SCH (08:51)
--- NOTE | 2019-03-16 09:08 | Internal Med Progress Note ---
Date of Encounter: 03/16/19 Time of Encounter: 09:06 - Assessment and plan (1) Acute right MCA stroke Current Visit: Yes Status: Acute Assessment and plan: No new neurological deficits. Continue PT and OT. Will follow progress. Follow up with neurologist as scheduled. (2) Hypertension, essential, benign Current Visit: Yes Status: Chronic Assessment and plan: Controlled with current medication. Monitor blood pressure. (3) CKD (chronic kidney disease) Current Visit: Yes Status: Acute Assessment and plan: Stable. Avoid nephrotoxic agents. monitor labs. Qualifiers: Chronic kidney disease stage: unspecified stage Qualified Code(s): N18.9 - Chronic kidney disease, unspecified - Time Spent With Patient less than 15 minutes - Subjective Interval history: Participating well with therapy. Propelling self in wheelchair. Denies fever, chills, nausea vomiting or diarrhea. Denies shortness of breath or chest pain. Last bowel movement was this morning. Maintaining appetite and hydration. therapy to coordinate an overnight at home with . - Constitutional Vitals: Temp Pulse Resp BP Pulse Ox 97.9 F 58 18 119/48 99 03/16/19 06:43 03/16/19 06:43 03/16/19 06:43 03/16/19 06:43 03/16/19 06:43 General appearance: Present: A&O X 3, no acute distress, answers questions appropriately - Head Head exam: Present: atraumatic, normocephalic - Eye Eye exam: Present: PERRL, conjuntiva pink, sclera anicteric Pupils: Present: PERRL - Neck Neck exam general surgery: Present: supple, trachea midline. Absent: lymphadenopathy - Respiratory Respiratory exam: Present: CTAB. Absent: accessory muscle use, rales, rhonchi, wheezes - Cardiovascular Cardiovascular exam: Present: RRR, +S1, +S2. Absent: diastolic murmur, gallop, rubs, systolic murmur - GI/Abdominal GI/Abdominal exam: Present: normal bowel sounds, soft, no peritoneal signs. Absent: distended, tenderness - Extremities Exam Extremities exam: Present: warm, radial pulses palpable and symmetrical. Absent: calf tenderness, cyanotic, pedal edema Additional comments: nonpitting edema BLE - Neurological Exam Neurological exam: Present: CN II-XII intact, oriented X3, no focal deficits. A bsent: pronater drift, facial droop, speech deficit - Skin Skin exam: Present: dry, intact Internal Medicine: Result - Labs CBC & Chem 7: 03/15/19 06:30 03/15/19 06:30 - ABG Interpretation ABG results: PT/INR, D-dimer PT 12.7 Seconds (9.4-12.1) H 02/10/19 11:29 Consult Discharge Plan - Plan Referrals: Danay Swan [Primary Care Provider] -
[2019-03-16] MEDS: Acetaminophen 325 MG TABLET PO PRN ×2 (17:51→22:35)
[2019-03-17] MEDS: *HR* Heparin 5,000 UNIT/ML VIAL SQ SCH ×2 (05:19→17:48)
[2019-03-17] MEDS: Acetaminophen 325 MG TABLET PO PRN ×2 (05:19→17:55)
[2019-03-17] MEDS: Nystatin POWDER 30 GM BOTTLE TP SCH ×2 (08:31→20:03)
[2019-03-17] MEDS: Hydrocortisone Rectal 2.5% CRM 28 GM TUBE RC SCH ×2 (08:31→20:03)
[2019-03-17] MEDS: Aspirin Enteric Coated 81 MG Tablet PO SCH (08:36)
[2019-03-17] MEDS: amLODIPine 5 MG TABLET PO SCH (08:36)
[2019-03-17] MEDS: Cholecalciferol (D-3) 1,000 UNIT (25MCG) TABLET PO SCH (08:36)
[2019-03-17] MEDS: *HR* Ticagrelor 90 MG TABLET PO SCH ×2 (08:37→20:02)
[2019-03-17] MEDS: Magnesium Oxide 400 MG TABLET PO SCH ×2 (08:37→20:02)
[2019-03-17] MEDS: Loratadine 10 MG TABLET PO SCH (08:37)
--- NOTE | 2019-03-17 09:57 | Internal Med Progress Note ---
Date of Encounter: 03/17/19 Time of Encounter: 09:55 - Assessment and plan (1) Acute right MCA stroke Current Visit: Yes Status: Acute Assessment and plan: Patient is progressing well. Left extremities at +4/5 muscle strength but also remains at 3+/5 muscle strength for his dorsiflexion. Right extremities remain 5/5 muscle strength. Patient continues to progress with physical therapy and feels that his fine motor movement on his left hand has been improving slowly. Patient continues with some complaints of tenderness to his left ankle which remains slightly swollen, which is likely secondary to his decreased range of motion. Left ankle with AFO. Continue with current plan of care (2) Hypertension, essential, benign Current Visit: Yes Status: Chronic Assessment and plan: Vital signs stable. We will continue with current medications. (3) CKD (chronic kidney disease) Current Visit: Yes Status: Acute Assessment and plan: Patient's renal function has been improving. Most recent creatinine is at 1.23, which has remained stable. We will continue to monitor patient's renal status through serial labs. Qualifiers: Chronic kidney disease stage: unspecified stage Qualified Code(s): N18.9 - Chronic kidney disease, unspecified - Time Spent With Patient less than 15 minutes - Subjective Interval history: Patient appears relaxed right denies any discomforts shortness of breath. Patient states that physical therapy has been progressing well for him. Patient being prepared for possible home visit later this week. States that his movement to the LUE continues to improve with fine motor. - Constitutional Vitals: Temp Pulse Resp BP Pulse Ox 97.6 F 52 18 134/67 98 03/17/19 07:56 03/17/19 07:56 03/17/19 07:56 03/17/19 07:56 03/17/19 07:56 General appearance: Present: A&O X 3, no acute distress, answers questions appropriately - Head Head exam: Present: atraumatic, normocephalic - Eye Eye exam: Present: PERRL, conjuntiva pink, sclera anicteric Pupils: Present: PERRL - Neck Neck exam general surgery: Present: supple, trachea midline. Absent: lymphadenopathy - Respiratory Respiratory exam: Present: decreased breath sounds, CTAB. Absent: accessory muscle use, rales, rhonchi, wheezes - Cardiovascular Cardiovascular exam: Present: RRR, +S1, +S2. Absent: diastolic murmur, gallop, rubs, systolic murmur - GI/Abdominal GI/Abdominal exam: Present: normal bowel sounds, soft, no peritoneal signs. Absent: distended, tenderness - Extremities Exam Extremities exam: Present: warm, radial pulses palpable and symmetrical. Absent: calf tenderness, cyanotic, pedal edema - Neurological Exam Neurological exam: Present: CN II-XII intact, oriented X3. Absent: pronater drift, facial droop, speech deficit Additional comments: LUE continues with MS 4/5. LLE 4/5 with DF 3/[address] RE 5/5 - Skin Skin exam: Present: dry, intact Internal Medicine: Result - Labs CBC & Chem 7: 03/15/19 06:30 03/15/19 06:30 - ABG Interpretation ABG results: PT/INR, D-dimer PT 12.7 Seconds (9.4-12.1) H 02/10/19 11:29 Consult Discharge Plan - Plan Referrals: Danay Swan [Primary Care Provider] -
--- NOTE | 2019-03-17 10:13 | Rehab Psychology Progress Note ---
Date of Encounter: 03/17/19 Time of Encounter: 09:30 Subjective - Patient Report Patient Report: Stated he has made good progress to date but frustrated with continued weakness in left hand. Eager to go home and plans to RTW, hopefully by August. He has experienced frustration with pace of recovery but not discouraged. Objective - WHODAS Functional Impairment Concentration, Problem-solving, Communication: None Mobility: Mild Social Functioning: None Community Involvement/Hobbies: Mild - Comments Functional Status Comments: Getting around the unit independently. Excited to have home overnight Friday then DC next week. Son's are working on accommodations around the home - ramp, b ars, etc. - Mental Status Mental Status Changes: OX3. No complaint of any cognitive issues. feels memory and attention/concentration are status quo. Assessment and Plan - Diagnosis (1) Adjustment disorder with anxious mood - Response to Treatment Response to Treatment: Improved - Prognosis Prognosis: Good - Treatment Plan Changes in Treatment Plan Goals: Told is issues upon RTW he can call and set appointment for strategy development. Procedures - Intervention Interventions: Cognitive/Behavioral Therapy - Modality Modality: Psychotherapy 30 minutes - Participants Therapy Participant: Patient - Session Time Session Start Time: :30 Session Stop Time: 10:00
[2019-03-18] MEDS: Acetaminophen 325 MG TABLET PO PRN ×2 (05:33→21:10)
[2019-03-18] MEDS: *HR* Heparin 5,000 UNIT/ML VIAL SQ SCH ×2 (05:34→18:23)
[2019-03-18] MEDS: *HR* Ticagrelor 90 MG TABLET PO SCH ×2 (08:06→21:10)
[2019-03-18] MEDS: Cholecalciferol (D-3) 1,000 UNIT (25MCG) TABLET PO SCH (08:06)
[2019-03-18] MEDS: Magnesium Oxide 400 MG TABLET PO SCH ×2 (08:06→21:10)
[2019-03-18] MEDS: Aspirin Enteric Coated 81 MG Tablet PO SCH (08:06)
[2019-03-18] MEDS: amLODIPine 5 MG TABLET PO SCH (08:06)
[2019-03-18] MEDS: Loratadine 10 MG TABLET PO SCH (08:06)
[2019-03-18] MEDS: Nystatin POWDER 30 GM BOTTLE TP SCH ×2 (08:07→21:10)
[2019-03-18] MEDS: Hydrocortisone Rectal 2.5% CRM 28 GM TUBE RC SCH ×2 (08:07→21:10)
--- NOTE | 2019-03-18 10:05 | Internal Med Progress Note ---
Date of Encounter: 03/18/19 Time of Encounter: 10:03 - Assessment and plan (1) Acute right MCA stroke Current Visit: Yes Status: Acute Assessment and plan: Patient is progressing well. Left extremities at +4/5 muscle strength but also remains at 3+/5 muscle strength for his dorsiflexion. Right extremities remain 5/5 muscle strength. Patient continues to progress with physical therapy and feels that his fine motor movement on his left hand has been improving slowly. Patient continues with some complaints of tenderness to his left ankle which remains slightly swollen, which is likely secondary to his decreased range of motion. Left ankle with AFO. Patient also with complaints of slight muscle strain to his left groin area, which occurred after exercising. Continue with current plan of care and continue with therapy. (2) Hypertension, essential, benign Current Visit: Yes Status: Chronic Assessment and plan: Vital signs stable. We will continue with current medications. (3) CKD (chronic kidney disease) Current Visit: Yes Status: Acute Assessment and plan: Patient's renal function has been improving. Most recent creatinine is at 1.23, which has remained stable. We will continue to monitor patient's renal status t hrough serial labs. 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 No issues noted post procedure with follow-up ultrasounds showing pseudoaneurysm to be stable. Today patient complains of pain to his left groin but on palpation patient's pain shows to be actually to an upper quadricep muscle. We will continue with therapy and current plan of care. we will continue to monitor (5) Yeast dermatitis Current Visit: Yes Status: Acute Assessment and plan: Patient continues with a rash like infection to his left axilla and bilateral groins. We will continue with nystatin powder and monitor daily. No open wounds noted - Time Spent With Patient less than 15 minutes - Subjective Interval history: Patient with complaints of slight pain to his left groin area during range of motion. Patient states that he was on the recumbent bike yesterday and felt that he may have overdone it and strained his left groin. Patient complains of slight tenderness to the left groin area with deep palpation and also to the upper quadricep muscle. Nurse reports patient continues to have yeastlike dermatitis to his left axilla region and possibly to the right also. Patient noted to have yeast dermatitis to bilateral groins. - Constitutional Vitals: Temp Pulse Resp BP Pulse Ox 98.5 F 53 16 132/66 98 03/18/19 06:41 03/18/19 06:41 03/18/19 06:41 03/18/19 06:41 03/18/19 06:41 General appearance: Present: A&O X 3, no acute distress, answers questions appropriately - Head Head exam: Present: atraumatic, normocephalic - Eye Eye exam: Present: PERRL, conjuntiva pink, sclera anicteric Pupils: Present: PERRL - Neck Neck exam general surgery: Present: supple, trachea midline. Absent: lymphadenopathy - Respiratory Respiratory exam: Present: CTAB. Absent: accessory muscle use, rales, rhonchi, wheezes - Cardiovascular Cardiovascular exam: Present: RRR, +S1, +S2. Absent: diastolic murmur, gallop, rubs, systolic murmur - GI/Abdominal GI/Abdominal exam: Present: normal bowel sounds, soft, no peritoneal signs. Absent: distended, tenderness - Extremities Exam Extremities exam: Present: warm, radial pulses palpable and symmetrical. Absent: calf tenderness, cyanotic, pedal edema Additional comments: Patient complains of slight pain to his left ankle which increases during range of motion. Noted slight nonpitting edema. AFO in place. Patient with yeast dermatitis to left axilla area and bilateral groins. No infectious process not ed to right axilla - Neurological Exam Neurological exam: Present: CN II-XII intact, oriented X3. Absent: pronater drift, facial droop, speech deficit Additional comments: Patient continues with left hemiparesis showing 4/5 muscle strength to left extremities with the exception of his left dorsiflexion which is at 3/5. Right extremities have 5/5 muscle strength. - Skin Skin exam: Present: dry, intact Internal Medicine: Result - Labs CBC & Chem 7: 03/15/19 06:30 03/15/19 06:30 - ABG Interpretation ABG results: PT/INR, D-dimer PT 12.7 Seconds (9.4-12.1) H 02/10/19 11:29 Consult Discharge Plan - Plan Referrals: Danay Swan [Primary Care Provider] -
--- NOTE | 2019-03-18 11:10 | Event Note ---
Date of Encounter: 03/18/19 Time of Encounter: 11:06 Patient continues to have unsteady gait remains a fall risk due to his left hemiparesis. Patient continues to have left hemiparesis with his left lower extremity and 4/5, but his left dorsiflexion remains at 3/5 muscle strength. Patient wears a AFO. Patient noted to have poor endurance when attempting to stand for long periods of time. Patient is recommended to have a standard wheelchair to reduce his risk of fall due to his unsteady gait. Patient requires assistance of a standard wheelchair to successfully complete of daily living task of: Toileting, feeding, bathing, dressing and grooming, or any other daily living task in the home. He stated we will treat as necessary due to the patient's impaired ambulation and mobility restrictions and would be unable to resolve these daily living task using a cane or walker. The patient is capable of using a standard wheelchair safely in the home and can maneuver within the home with adequate access. There is a caregiver available to provide assistance. The patient has not expressed unwillingness to use to the [facility]
[2019-03-19] MEDS: *HR* Heparin 5,000 UNIT/ML VIAL SQ SCH ×2 (04:33→17:57)
[2019-03-19] MEDS: Acetaminophen 325 MG TABLET PO PRN ×2 (04:34→21:58)
[2019-03-19] MEDS: Aspirin Enteric Coated 81 MG Tablet PO SCH (08:27)
[2019-03-19] MEDS: Magnesium Oxide 400 MG TABLET PO SCH ×2 (08:27→21:58)
[2019-03-19] MEDS: amLODIPine 5 MG TABLET PO SCH (08:27)
[2019-03-19] MEDS: Cholecalciferol (D-3) 1,000 UNIT (25MCG) TABLET PO SCH (08:27)
[2019-03-19] MEDS: Nystatin POWDER 30 GM BOTTLE TP SCH ×2 (08:28→22:00)
[2019-03-19] MEDS: Hydrocortisone Rectal 2.5% CRM 28 GM TUBE RC SCH ×2 (08:28→22:00)
[2019-03-19] MEDS: *HR* Ticagrelor 90 MG TABLET PO SCH ×2 (08:28→21:58)
[2019-03-19] MEDS: Loratadine 10 MG TABLET PO SCH (08:28)
--- NOTE | 2019-03-19 10:02 | Internal Med Progress Note ---
Date of Encounter: 03/19/19 Time of Encounter: 09:58 - Assessment and plan (1) Acute right MCA stroke Current Visit: Yes Status: Acute Assessment and plan: No new neurological deficits. Continue PT and OT. Will follow progress. Follow up with neurologist as scheduled. (2) Hypertension, essential, benign Current Visit: Yes Status: Chronic Assessment and plan: Controlled with current medication. Monitor blood pressure. (3) CKD (chronic kidney disease) Current Visit: Yes Status: Acute Assessment and plan: Stable. Avoid nephrotoxic agents. monitor labs. Qualifiers: Chronic kidney disease stage: unspecified stage Qualified Code(s): N18.9 - Chronic kidney disease, unspecified - Time Spent With Patient less than 15 minutes - Subjective Interval history: Participating well with therapy. ambulating with walker with therapy. Propelling self in wheelchair. Denies fever, chills, nausea vomiting or brea rrhea. Denies shortness of breath or chest pain. states he slept well last night. Last bowel movement was this morning. Maintaining appetite and hydration. Therapy to coordinate an overnight at home with and scheduled for 03/21. Patient will need a 22 inch wheelchair to 2 physical size of patient with hip with measurements of 21.5 inches in width and 18 inches in depth. Wheelchair is necessary due to the patient's impaired ambulation due to CVA. He is unable to resolve these daily living tasks using a cane or walker. Patient is capable to propel standard wheelchair safely and can maneuver. - Constitutional Vitals: Temp Pulse Resp BP Pulse Ox 97.6 F 60 16 153/69 93 03/19/19 07:00 03/19/19 07:00 03/19/19 07:00 03/19/19 07:00 03/19/19 07:00 General appearance: Present: A&O X 3, pleasant, no acute distress, obese, answers questions appropriately - Head Head exam: Present: atraumatic, normocephalic - Eye Eye exam: Present: PERRL, conjuntiva pink, sclera anicteric Pupils: Present: PERRL - Neck Neck exam general surgery: Present: supple, trachea midline. Absent: lymphadenopathy - Respiratory Respiratory exam: Present: CTAB. Absent: accessory muscle use, rales, rhonchi, wheezes - Cardiovascular Cardiovascular exam: Present: RRR, +S1, +S2. Absent: diastolic murmur, gallop, rubs, systolic murmur - GI/Abdominal GI/Abdominal exam: Present: normal bowel sounds, soft, no peritoneal signs. Absent: distended, tenderness - Extremities Exam Extremities exam: Present: warm, radial pulses palpable and symmetrical. Absent: calf tenderness, cyanotic, pedal edema - Neurological Exam Neurological exam: Present: CN II-XII intact, oriented X3, no focal deficits. Absent: pronater drift, facial droop, speech deficit - Skin Skin exam: Present: dry, intact Internal Medicine: Result - Labs CBC & Chem 7: 03/15/19 06:30 03/15/19 06:30 - ABG Interpretation ABG results: PT/INR, D-dimer PT 12.7 Seconds (9.4-12.1) H 02/10/19 11:29 Consult Discharge Plan - Plan Referrals: Danay Swan [Primary Care Provider] -
[2019-03-20] MEDS: Melatonin 3 MG TABLET PO PRN ×2 (00:50→21:00)
[2019-03-20] MEDS: traMADol 50 MG TABLET PO PRN ×2 (00:50→18:26)
[2019-03-20] MEDS: *HR* Heparin 5,000 UNIT/ML VIAL SQ SCH ×2 (04:41→16:59)
[2019-03-20] MEDS: *HR* Ticagrelor 90 MG TABLET PO SCH ×2 (08:14→21:00)
[2019-03-20] MEDS: Cholecalciferol (D-3) 1,000 UNIT (25MCG) TABLET PO SCH (08:14)
[2019-03-20] MEDS: Magnesium Oxide 400 MG TABLET PO SCH ×2 (08:15→21:00)
[2019-03-20] MEDS: Acetaminophen 325 MG TABLET PO PRN ×3 (08:15→21:00)
[2019-03-20] MEDS: Aspirin Enteric Coated 81 MG Tablet PO SCH (08:15)
[2019-03-20] MEDS: Nystatin POWDER 30 GM BOTTLE TP SCH ×2 (08:15→21:33)
[2019-03-20] MEDS: Loratadine 10 MG TABLET PO SCH (08:15)
[2019-03-20] MEDS: amLODIPine 5 MG TABLET PO SCH (08:15)
[2019-03-20] MEDS: Hydrocortisone Rectal 2.5% CRM 28 GM TUBE RC SCH ×2 (08:15→21:33)
--- NOTE | 2019-03-20 08:19 | Internal Med Progress Note ---
Date of Encounter: 03/20/19 Time of Encounter: 08:17 - Assessment and plan (1) Anemia Current Visit: Yes Status: Acute Assessment and plan: Improving and stable on iron Qualifiers: Anemia type: unspecified type Qualified Code(s): D64.9 - Anemia, unspecified (2) Acute right MCA stroke Current Visit: Yes Status: Acute Assessment and plan: No new change getting his rehab and slowly improving Has improved a lot continue present management (3) Hypertension, essential, benign Current Visit: Yes Status: Chronic Assessment and plan: Stable no new change (4) Acute on chronic renal failure Current Visit: No Status: Resolved Assessment and plan: All resolved Qualifiers: Acute renal failure type: unspecified Chronic kidney disease stage: stage 4 (severe) Qualified Code(s): N17.9 - Acute kidney failure, unspecified; N18.4 - Chronic kidney disease, stage 4 (severe) - Subjective Interval history: Cross coverage No acute issues todays overnight uneventful overall feels well getting and improving out of bed and moves with walker. had leg pain left side Ultram was givne and he feels that it helped him a lot - Constitutional Vitals: Temp Pulse Resp BP Pulse Ox 98.0 F 60 16 111/61 97 03/20/19 07:00 03/20/19 07:00 03/20/19 07:00 03/20/19 07:00 03/20/19 07:00 General appearance: Present: A&O X 3, pleasant, no acute distress, obese, answers questions appropriately - Head Head exam: Present: atraumatic - Eye Eye exam: Present: EOMI, PERRL Pupils: Present: PERRL - Neck Neck exam general surgery: Present: full ROM, supple. Absent: tenderness, nuchal rigidity, thyromegaly - Respiratory Respiratory exam: Present: CTAB. Absent: chest wall tenderness, decreased breath sounds, prolonged expiratory phase, rales, respiratory distress, stridor, wheezes, tachypnea - Cardiovascular Cardiovascular exam: Present: RRR, +S1, +S2. Absent: JVD, systolic murmur - GI/Abdominal GI/Abdominal exam: Present: normal bowel sounds, soft. Absent: distended, guarding, hernia, rebound, rigid, splenomegaly, tenderness Additional comments: obese - Extremities Exam Extremities exam: Present: pedal edema. Absent: tenderness, warm, radial pulses palpable and symmetrical Additional comments: + pitting both sides - Neurological Exam Neurological exam: Present: CN II-XII intact, oriented X3. Absent: facial droop, speech deficit Additional comments: motor function new new change, improving Internal Medicine: Result - Labs CBC & Chem 7: 03/15/19 06:30 03/15/19 06:30 - ABG Interpretation ABG results: PT/INR, D-dimer PT 12.7 Seconds (9.4-12.1) H 02/10/19 11:29 Consult Discharge Plan - Plan Referrals: Danay Swan [Primary Care Provider] -
[2019-03-21] MEDS: traMADol 50 MG TABLET PO PRN (02:16)
[2019-03-21] MEDS: *HR* Heparin 5,000 UNIT/ML VIAL SQ SCH ×2 (05:03→17:05)
--- NOTE | 2019-03-21 07:44 | Internal Med Progress Note ---
Date of Encounter: 03/21/19 Time of Encounter: 07:42 - Assessment and plan (1) Anemia Current Visit: Yes Status: Acute Assessment and plan: Improving and stable on iron no new issues labs per protcal tomorrow Qualifiers: Anemia type: unspecified type Qualified Code(s): D64.9 - Anemia, unspecified (2) Acute right MCA stroke Current Visit: Yes Status: Acute Assessment and plan: No new change getting his rehab and slowly improving Has improved a lot continue present management . Wheelchair order signed (3) Hypertension, essential, benign Current Visit: Yes Status: Chronic Assessment and plan: Stable no new change . Continue present medications - Subjective Interval history: Cross coverage No acute issues todays overnight uneventful night slept well no other issues .Pain good control with ultram - Constitutional Vitals: Temp Pulse Resp BP Pulse Ox 97.6 F 57 15 116/67 98 03/21/19 07:20 03/21/19 07:20 03/21/19 07:20 03/21/19 07:20 03/21/19 07:20 General appearance: Present: A&O X 3, pleasant, no acute distress, obese, answers questions appropriately - Head Head exam: Present: atraumatic - Eye Eye exam: Present: EOMI, PERRL Pupils: Present: PERRL - Neck Neck exam general surgery: Present: full ROM, supple. Absent: nuchal rigidity - Respiratory Respiratory exam: Present: CTAB. Absent: prolonged expiratory phase, rales, respiratory distress, rhonchi, stridor, wheezes, tachypnea - Cardiovascular Cardiovascular exam: Present: RRR, +S1, +S2 - GI/Abdominal GI/Abdominal exam: Present: normal bowel sounds, soft. Absent: rigid, tenderness Additional comments: Obese soft non tender. - Extremities Exam Extremities exam: Present: pedal edema Additional comments: left + pitting right none no signs of any inflammation - Neurological Exam Neurological exam: Present: CN II-XII intact, oriented X3. Absent: facial droop, speech deficit Additional comments: foalc defcit left side upper and lower .invoving and getting better . his arm is weaker then his leg. Internal Medicine: Result - Labs CBC & Chem 7: 03/15/19 06:30 03/15/19 06:30 - ABG Interpretation ABG results: PT/INR, D-dimer PT 12.7 Seconds (9.4-12.1) H 02/10/19 11:29 Consult Discharge Plan - Plan Referrals: Danay Swan [Primary Care Provider] -
[2019-03-21] MEDS: Cholecalciferol (D-3) 1,000 UNIT (25MCG) TABLET PO SCH (08:01)
[2019-03-21] MEDS: *HR* Ticagrelor 90 MG TABLET PO SCH ×2 (08:01→20:44)
[2019-03-21] MEDS: Magnesium Oxide 400 MG TABLET PO SCH ×2 (08:02→20:44)
[2019-03-21] MEDS: amLODIPine 5 MG TABLET PO SCH (08:02)
[2019-03-21] MEDS: Hydrocortisone Rectal 2.5% CRM 28 GM TUBE RC SCH ×2 (08:02→20:44)
[2019-03-21] MEDS: Aspirin Enteric Coated 81 MG Tablet PO SCH (08:02)
[2019-03-21] MEDS: Loratadine 10 MG TABLET PO SCH (08:02)
[2019-03-21] MEDS: Nystatin POWDER 30 GM BOTTLE TP SCH (08:02)
[2019-03-21] MEDS: Acetaminophen 325 MG TABLET PO PRN (10:14)
[2019-03-22] MEDS: Nystatin POWDER 30 GM BOTTLE TP SCH ×3 (01:26→21:12)
[2019-03-22] MEDS: *HR* Heparin 5,000 UNIT/ML VIAL SQ SCH ×2 (04:29→16:58)
--- NOTE | 2019-03-22 10:54 | Event Note ---
Date of Encounter: 03/22/19 Time of Encounter: 10:51 Patient has not returned from his home visit. Data was reviewed and stable but patient not seen this date.
[2019-03-22] MEDS: Magnesium Oxide 400 MG TABLET PO SCH ×2 (10:58→21:12)
[2019-03-22] MEDS: *HR* Ticagrelor 90 MG TABLET PO SCH ×2 (10:58→21:12)
[2019-03-22] MEDS: Aspirin Enteric Coated 81 MG Tablet PO SCH (10:58)
[2019-03-22] MEDS: Hydrocortisone Rectal 2.5% CRM 28 GM TUBE RC SCH ×2 (10:58→21:12)
[2019-03-22] MEDS: amLODIPine 5 MG TABLET PO SCH (10:58)
[2019-03-22] MEDS: Loratadine 10 MG TABLET PO SCH (10:58)
[2019-03-22] MEDS: Cholecalciferol (D-3) 1,000 UNIT (25MCG) TABLET PO SCH (10:59)
[2019-03-22] MEDS: Acetaminophen 325 MG TABLET PO PRN ×2 (15:54→21:11)
[2019-03-22] MEDS: Melatonin 3 MG TABLET PO PRN (21:12)
[2019-03-23] MEDS: *HR* Heparin 5,000 UNIT/ML VIAL SQ SCH (05:35)
[2019-03-23] MEDS: Magnesium Oxide 400 MG TABLET PO SCH (08:06)
[2019-03-23] MEDS: Loratadine 10 MG TABLET PO SCH (08:06)
[2019-03-23] MEDS: Cholecalciferol (D-3) 1,000 UNIT (25MCG) TABLET PO SCH (08:06)
[2019-03-23] MEDS: *HR* Ticagrelor 90 MG TABLET PO SCH (08:06)
[2019-03-23] MEDS: Aspirin Enteric Coated 81 MG Tablet PO SCH (08:06)
[2019-03-23] MEDS: amLODIPine 5 MG TABLET PO SCH (08:07)
[2019-03-23] MEDS: Hydrocortisone Rectal 2.5% CRM 28 GM TUBE RC SCH (08:08)
[2019-03-23] MEDS: Nystatin POWDER 30 GM BOTTLE TP SCH (08:08)
[2019-03-23 11:10] VITALS: BP 136/68
--- NOTE | 2019-03-23 11:29 | Discharge Summary ---
Date of Encounter: 03/23/19 Time of Encounter: 11:25 - Discharge Diagnosis (1) Acute right MCA stroke Priority: Primary Status: Acute Comments: no new neuro deficits. continue home PT, OT and nurse. f/u with PCP in 1-2 weeks and neurologist as scheduled. (2) Hypertension, essential, benign Priority: Secondary Status: Chronic Comments: controlled with current meds. monitor BP. f/u with PCP (3) CKD (chronic kidney disease) Priority: Secondary Status: Chronic Comments: stable. f/u with PCP Qualifiers: Chronic kidney disease stage: unspecified stage Qualified Code(s): N18.9 - Chronic kidney disease, unspecified Hospital course: Mr. Torrez is a 73 year old male discharging to home with after being admitted s/p CVA. has completed therapy goals to return to home. had recent home safety visit and overnight. recieved [facility] and can ambulate with quad cane for transfers. no new neurological deficit. denies fever, chills, NVD, SOB or chest pain. Discharge discussed with: patient, family, nurse, social work - Time Spent with Patient Total time spent providing and/or coordinating discharge services: Time spent: Less than 30 minutes - Discharge Medications Prescriptions: No Action Ticagrelor [Brilinta] 60 mg PO BID Polyethylene Glycol 3350 [MiraLAX] 34 gm PO BID Atorvastatin Calcium [Lipitor] 80 mg PO HS Aspirin Enteric Coated [Aspirin EC] 81 mg PO DAILY Acetaminophen [Tylenol] 975 mg PO Q6HR PRN PRN Reason: Pain Triamterene-Hctz 75-50 mg Tab Home Medications: Acetaminophen [Tylenol] 975 mg PO Q6HR PRN 01/16/19 [History] Aspirin Enteric Coated [Aspirin EC] 81 mg PO DAILY 01/16/19 [History] Polyethylene Glycol 3350 [MiraLAX] 34 gm PO BID 01/16/19 [History] Atenolol [Tenormin] 50 mg PO DAILY #14 tablet 03/23/19 [Rx] Atorvastatin [Lipitor] 80 mg PO HS #14 tablet 03/23/19 [Rx] Bisacodyl [Dulcolax] 5 mg PO DAILY PRN tablet 03/23/19 [Rx] Calcium Carbonate [Tums] 1,000 mg PO BID tab.chew 03/23/19 [Rx] Cholecalciferol (D-3) [Vitamin D] 1,000 unit PO DAILY tablet 03/23/19 [Rx] Escitalopram [Lexapro] 10 mg PO DAILY #14 tablet 03/23/19 [Rx] Hydrocortisone Rectal CRM [Proctosol-Hc] 1 appl RC BID #7 tube 03/23/19 [Rx] Loratadine [Claritin] 10 mg PO DAILY tablet 03/23/19 [Rx] Losartan [Cozaar] 25 mg PO DAILY #14 tablet 03/23/19 [Rx] Magnesium Oxide [Mag-Ox] 400 mg PO BID #28 tablet 03/23/19 [Rx] Melatonin 6 mg PO HS PRN tablet 03/23/19 [Rx] Ticagrelor [Brilinta] 45 mg PO BID #28 tablet 03/23/19 [Rx] amLODIPine [Norvasc] 10 mg PO DAILY #28 tablet 03/23/19 [Rx] Allergies/Adverse Reactions: Allergy/AdvReac Type Severity Reaction Status Date / Time No Known Allergies Allergy Verified 01/16/19 22:09 Date of admission: 01/27/19 14:09 Primary care physician: Danay Swan Consults: 01/27/19 15:54 Consult to Occupational Therapy [CONS] Routine Comment: Evaluate, develop and implement POC Reason for Consult: s/p arf and cva Does patient have active BEDREST order?: No Is patient medically & hemodynamically stable?: Yes Patient assessed for mobility or mobilized this visit?: Yes Consult to Physical Medicine/Rehab [CONS] Routine Reason for Consult: deconditioning s/p arf and cva Call Completed: Yes Consult to Physical Therapy [CONS] Routine Comment: Evaluate, develop and implement POC Reason for Consult: s/p arf and cva Does patient have active BEDREST order?: No Is patient medically & hemodynamically stable?: Yes Patient assessed for mobility or mobilized this visit?: No Consult to Recreational Therapy [CONS] Routine Comment: Evaluate, develop and implement POC Consult to Data Recovery Planner [CONS] Routine Reason for SW Consult: s/p afr and cva 01/27/19 16:25 Consult to Psychology [CONS] Routine Consulting Provider: Tosha Pisano Reason for Consult: Possible depression; adjustment disorder Call Completed: No Consult to Speech Therapy [CONS] Routine Comment: Evaluate, develop and implement POC Reason for Consult: recent cva Call Completed: Yes 03/15/19 10:08 Consult to Physical Medicine/Rehab [CONS] Routine Reason for Consult: Please evaluate and manage therapies' guidelines and recommend pathway to reconditioning. Time Notified: 10:08 Call Completed: Yes Discharging clinician: Bradley Doan Anticipated date of discharge: 03/23/19 - Constitutional Vitals: Temp Pulse Resp BP Pulse Ox 98.0 F 55 19 136/68 96 03/23/19 11:09 03/23/19 11:09 03/23/19 11:09 03/23/19 11:09 03/23/19 11:09 General appearance: Present: A&O X 3, pleasant, no acute distress, obese, answers questions appropriately - Head Head exam: Present: atraumatic, normocephalic - Eye Eye exam: Present: PERRL, conjuntiva pink, sclera anicteric Pupils: Present: PERRL - Neck Neck exam general surgery: Present: supple, trachea midline. Absent: lymphadenopathy - Respiratory Respiratory exam: Present: CTAB. Absent: accessory muscle use, rales, rhonchi, wheezes - Cardiovascular Cardiovascular exam: Present: irregular rhythm, +S1, +S2. Absent: diastolic murmur, gallop, rubs, systolic murmur - GI/Abdominal GI/Abdominal exam: Present: normal bowel sounds, soft, no peritoneal signs. Absent: distended, tenderness - Extremities Exam Extremities exam: Present: warm, radial pulses palpable and symmetrical. Absent: calf tenderness, cyanotic, pedal edema Additional comments: nonpitting edema BLE. - Neurological Exam Neurological exam: Present: CN II-XII intact, oriented X3, no focal deficits. Absent: pronater drift, facial droop, speech deficit - Skin Skin exam: Present: dry, intact - Patient Status Disposition: Home Health Service Condition: Good Functional capacity at discharge: wheelchair bound Overall status at discharge: patient is progressing back to baseline - Discharge Instructions Follow Up With: Danay Swan [Primary Care Provider] - 03/30/19 11:45 am - Diet and Activity Activity: as per physical therapy Diet: low fat, low cholesterol
--- NOTE | 2019-03-23 11:42 | Physician Discharge Referral ---
Home Health/Hosp Referral Info Transfer to: Home Health Provider in Charge Post Discharge: PCP - Diagnosis (1) Acute right MCA stroke Priority: Primary Status: Acute (2) Hypertension, essential, benign Priority: Secondary Status: Chronic (3) CKD (chronic kidney disease) Priority: Secondary Status: Chronic - Respiratory Orders Smoking Cessation: Smoking cessation has been advised. For more information, call the [place] Tobacco Quit Line at 8-604-TATH-NOW. - Diet/Nutrition Diet/Nutrition Orders: Cardiac - Activity Activity Orders: Chair - Services Needed Following services are medically necessary services: Nursing, Physical Therapy, Occupational Therapy - Transfer Medications Prescriptions: Ticagrelor [Brilinta] 45 mg PO BID #28 tablet Losartan [Cozaar] 25 mg PO DAILY #14 tablet Escitalopram [Lexapro] 10 mg PO DAILY #14 tablet Atorvastatin [Lipitor] 80 mg PO HS #14 tablet Magnesium Oxide [Mag-Ox] 400 mg PO BID #28 tablet amLODIPine [Norvasc] 10 mg PO DAILY #28 tablet Hydrocortisone Rectal CRM [Proctosol-Hc] 1 appl RC BID #7 tube Atenolol [Tenormin] 50 mg PO DAILY #14 tablet Home Medications: Acetaminophen [Tylenol] 975 mg PO Q6HR PRN 01/16/19 [History] Aspirin Enteric Coated [Aspirin EC] 81 mg PO DAILY 01/16/19 [History] Polyethylene Glycol 3350 [MiraLAX] 34 gm PO BID 01/16/19 [History] Atenolol [Tenormin] 50 mg PO DAILY #14 tablet 03/23/19 [Rx] Atorvastatin [Lipitor] 80 mg PO HS #14 tablet 03/23/19 [Rx] Bisacodyl [Dulcolax] 5 mg PO DAILY PRN tablet 03/23/19 [Rx] Calcium Carbonate [Tums] 1,000 mg PO BID tab.chew 03/23/19 [Rx] Cholecalciferol (D-3) [Vitamin D] 1,000 unit PO DAILY tablet 03/23/19 [Rx] Escitalopram [Lexapro] 10 mg PO DAILY #14 tablet 03/23/19 [Rx] Hydrocortisone Rectal CRM [Proctosol-Hc] 1 appl RC BID #7 tube 03/23/19 [Rx] Loratadine [Claritin] 10 mg PO DAILY tablet 03/23/19 [Rx] Losartan [Cozaar] 25 mg PO DAILY #14 tablet 03/23/19 [Rx] Magnesium Oxide [Mag-Ox] 400 mg PO BID #28 tablet 03/23/19 [Rx] Melatonin 6 mg PO HS PRN tablet 03/23/19 [Rx] Ticagrelor [Brilinta] 45 mg PO BID #28 tablet 03/23/19 [Rx] amLODIPine [Norvasc] 10 mg PO DAILY #28 tablet 03/23/19 [Rx] Allergies/Adverse Reactions: Allergy/AdvReac Type Severity Reaction Status Date / Time No Known Allergies Allergy Verified 01/16/19 22:09 Certification: Further, I certify that my clinical findings support that this patient is homebound (i.e. absences from home require considerable and taxing effort and are for medical reasons or shinto services or infrequently or short duration when for other reasons) because: Homebound Reason: Patient requires assistance of a person or device to safely leave home, Leaving home requires considerable and taxing effort due to condition Attestation: My signature below is to certify that this patient is under my care and that I, or nurse practitioner, or a physician's administrative library assistant working with me, has a [id number] encounter with this patient.
== END 2019-03-23 15:43 | disposition home health service (06) | DRG 57 ==
LOC: INPGRE 01-27 14:09

== ENCOUNTER 2022-01-01 16:14 | Inpatient (IN) ==
[2022-01-01] MEDS ORDERED: *HR* OxyCODONE/APAP 5/325 TABLET PO PRN (17:57)
[2022-01-01] MEDS: tiZANidine 4 MG TABLET PO SCH (21:03)
[2022-01-01] MEDS: amLODIPine 5 MG TABLET PO SCH (21:04)
[2022-01-01] MEDS: Magnesium Oxide 400 MG TABLET PO SCH (21:04)
[2022-01-01] MEDS: Gabapentin 300 MG CAPSULE PO SCH (21:04)
[2022-01-02 04:56] LABS: Basophils # 0.1 K/mcL (0.0-0.2); Basophils % 0.8 %; Eosinophils # 0.3 K/mcL (0.0-0.6); Eosinophils % 3.5 %; Hemoglobin 10.6 g/dL (12.9-16.9); Immature Granulocytes % 1.8 % (0-4); Lymphocytes # 1.1 K/mcL (0.6-4.6); Lymphocytes % 14.6 %; Mean Corpuscular HGB Conc 33.1 g/dL (31.6-35.5); Mean Corpuscular Hemoglobin 31.2 pg (28.0-33.3); Mean Corpuscular Volume 94.1 fL (83.0-100.0); Mean Platelet Volume 8.7 fL (9.4-12.4); Monocytes % 12.6 %; Neutrophils # 5.1 K/mcL (1.6-8.9); Platelet Count 319 K/mcL (140-400); Red Cell Distribution Width 13.1 % (11.5-14.5); Segmented Neutrophils % 66.7 %; White Blood Count 7.7 K/mcL (4.3-11.1)
[2022-01-02 05:07] LABS: BUN/Creatinine Ratio 21 (6-26); Blood Urea Nitrogen 27 mg/dL (8-23); Calcium 8.7 mg/dL (8.6-10.3); Carbon Dioxide 29 mEq/L (23-29); Chloride 102 mEq/L (98-107); Glucose 106 mg/dL (70-105); Osmolality,Calculated 292 (280-300); Sodium 138 mEq/L (136-145); eGFR For African Americans > 60 (> 60); eGFR For Non-African Americans 54 (> 60)
[2022-01-02] MEDS: *HR* OxyCODONE/APAP 5/325 TABLET PO PRN ×2 (06:08→19:43)
[2022-01-02] MEDS: Aspirin Enteric Coated 81 MG Tablet PO SCH (08:38)
[2022-01-02] MEDS: amLODIPine 5 MG TABLET PO SCH ×2 (08:38→19:42)
[2022-01-02] MEDS: Gabapentin 300 MG CAPSULE PO SCH ×2 (08:38→19:41)
[2022-01-02] MEDS: *HR* Rivaroxaban 10 MG TABLET PO SCH (08:38)
[2022-01-02] MEDS: tiZANidine 4 MG TABLET PO SCH ×2 (08:38→19:43)
[2022-01-02] MEDS: Losartan/HCTZ 50-12.5 TABLET PO SCH (08:38)
[2022-01-02] MEDS: Magnesium Oxide 400 MG TABLET PO SCH ×2 (08:38→19:40)
[2022-01-02] MEDS: Cyanocobalamin (B-12) 1,000 MCG TABLET PO SCH (08:38)
[2022-01-02] MEDS: Loratadine 10 MG TABLET PO SCH (08:38)
[2022-01-02] MEDS: atenoloL 50 MG TABLET PO SCH (08:39)
[2022-01-02] MEDS ORDERED: methylPREDNISolone 4 MG TABLET PO SCH (09:00)
[2022-01-02 12:41] LABS: Bilirubin,Urine Negative (Negative); Blood,Urine Large (Negative); Clarity,Urine Clear (Clear); Color,Urine Yellow (Yellow); Glucose,Urine (UA) Normal (Normal); Ketones,Urine Negative (Negative); Leukocyte Esterase,Urine Negative (Negative); Nitrite,Urine Negative (Negative); PH,Urine 6.5 pH Units (5.0-8.0); Protein,Urine Negative (Neg-Trace); Specific Gravity,Urine 1.015 (1.010-1.025); Urobilinogen,Urine Normal (Normal)
[2022-01-02] MEDS ORDERED: Sennosides/Docusate Sodium TABLET PO PRN (12:41)
[2022-01-02 13:05] LABS: RBC,Urine 15-30 per hpf (0-3); WBC,Urine 0-3 per hpf (0-3)
[2022-01-02 13:06] LABS: Bacteria,Urine Few per hpf (None-Few)
[2022-01-02] MEDS: polyethylene glycoL 3350 17 GM POWD.PACK PO SCH (13:59)
[2022-01-03] MEDS: *HR* OxyCODONE/APAP 5/325 TABLET PO PRN ×4 (02:45→16:38)
[2022-01-03] MEDS: Losartan/HCTZ 50-12.5 TABLET PO SCH (09:28)
[2022-01-03] MEDS: Aspirin Enteric Coated 81 MG Tablet PO SCH (09:28)
[2022-01-03] MEDS: *HR* Rivaroxaban 10 MG TABLET PO SCH (09:28)
[2022-01-03] MEDS: tiZANidine 4 MG TABLET PO SCH ×2 (09:28→21:33)
[2022-01-03] MEDS: Magnesium Oxide 400 MG TABLET PO SCH ×2 (09:28→21:33)
[2022-01-03] MEDS: amLODIPine 5 MG TABLET PO SCH ×2 (09:28→21:33)
[2022-01-03] MEDS: Cyanocobalamin (B-12) 1,000 MCG TABLET PO SCH (09:28)
[2022-01-03] MEDS: Gabapentin 300 MG CAPSULE PO SCH ×2 (09:29→21:33)
[2022-01-03] MEDS: Loratadine 10 MG TABLET PO SCH (09:29)
[2022-01-03] MEDS: atenoloL 50 MG TABLET PO SCH (09:29)
[2022-01-03] MEDS: polyethylene glycoL 3350 17 GM POWD.PACK PO SCH (09:32)
[2022-01-03] MEDS ORDERED: *HR* Belladonna Alkaloids/Opium 30 MG RECTAL SUPPOSITORY RC PRN (15:29)
[2022-01-03] MEDS ORDERED: *HR* Belladonna Alkaloids/Opium 30 MG RECTAL SUPPOSITORY RC ONE (16:34)
[2022-01-04] MEDS: Losartan/HCTZ 50-12.5 TABLET PO SCH (08:46)
[2022-01-04] MEDS: Magnesium Oxide 400 MG TABLET PO SCH ×2 (08:46→22:00)
[2022-01-04] MEDS: Gabapentin 300 MG CAPSULE PO SCH ×2 (08:46→22:00)
[2022-01-04] MEDS: Aspirin Enteric Coated 81 MG Tablet PO SCH (08:46)
[2022-01-04] MEDS: Cyanocobalamin (B-12) 1,000 MCG TABLET PO SCH (08:46)
[2022-01-04] MEDS: *HR* Rivaroxaban 10 MG TABLET PO SCH (08:46)
[2022-01-04] MEDS: amLODIPine 5 MG TABLET PO SCH ×2 (08:47→22:00)
[2022-01-04] MEDS: polyethylene glycoL 3350 17 GM POWD.PACK PO SCH (08:47)
[2022-01-04] MEDS: atenoloL 50 MG TABLET PO SCH (08:47)
[2022-01-04] MEDS: tiZANidine 4 MG TABLET PO SCH ×2 (08:47→21:59)
[2022-01-04] MEDS: Sennosides/Docusate Sodium TABLET PO SCH (22:01)
[2022-01-05 06:12] LABS: Hemoglobin 10.2 g/dL (12.9-16.9); Mean Corpuscular HGB Conc 32.9 g/dL (31.6-35.5); Mean Corpuscular Hemoglobin 31.1 pg (28.0-33.3); Mean Corpuscular Volume 94.5 fL (83.0-100.0); Mean Platelet Volume 8.6 fL (9.4-12.4); Platelet Count 332 K/mcL (140-400); Red Blood Count 3.28 M/mcL (4.19-5.50); Red Cell Distribution Width 12.9 % (11.5-14.5); White Blood Count 7.2 K/mcL (4.3-11.1)
[2022-01-05 06:38] LABS: Albumin 2.9 g/dL (3.5-5.7); Albumin/Globulin Ratio 1.1 (1.1-2.2); Bilirubin,Total 0.5 mg/dL (0.3-1.0); Calcium 8.8 mg/dL (8.6-10.3); Globulin 2.6 g/dL (2.4-3.5); Magnesium 1.7 mg/dL (1.6-2.6); Potassium 3.9 mEq/L (3.5-5.1); Total Protein 5.5 g/dL (6.4-8.9)
[2022-01-05] MEDS: *HR* Rivaroxaban 10 MG TABLET PO SCH (09:18)
[2022-01-05] MEDS: Losartan/HCTZ 50-12.5 TABLET PO SCH (09:18)
[2022-01-05] MEDS: Gabapentin 300 MG CAPSULE PO SCH ×2 (09:18→20:37)
[2022-01-05] MEDS: polyethylene glycoL 3350 17 GM POWD.PACK PO SCH (09:18)
[2022-01-05] MEDS: Magnesium Oxide 400 MG TABLET PO SCH ×2 (09:18→20:36)
[2022-01-05] MEDS: amLODIPine 5 MG TABLET PO SCH ×2 (09:18→20:38)
[2022-01-05] MEDS: Sennosides/Docusate Sodium TABLET PO SCH ×2 (09:18→20:38)
[2022-01-05] MEDS: Cyanocobalamin (B-12) 1,000 MCG TABLET PO SCH (09:18)
[2022-01-05] MEDS: Aspirin Enteric Coated 81 MG Tablet PO SCH (09:18)
[2022-01-05] MEDS: tiZANidine 4 MG TABLET PO SCH ×2 (09:19→20:38)
[2022-01-05] MEDS: atenoloL 50 MG TABLET PO SCH (09:19)
[2022-01-05] MEDS: levoFLOXacin 500 MG TABLET PO SCH (20:37)
[2022-01-06] MEDS: polyethylene glycoL 3350 17 GM POWD.PACK PO SCH (08:51)
[2022-01-06] MEDS: Aspirin Enteric Coated 81 MG Tablet PO SCH (08:51)
[2022-01-06] MEDS: Gabapentin 300 MG CAPSULE PO SCH ×2 (08:52→21:18)
[2022-01-06] MEDS: levoFLOXacin 500 MG TABLET PO SCH (08:52)
[2022-01-06] MEDS: Magnesium Oxide 400 MG TABLET PO SCH ×2 (08:52→21:17)
[2022-01-06] MEDS: Losartan/HCTZ 50-12.5 TABLET PO SCH (08:53)
[2022-01-06] MEDS: Cyanocobalamin (B-12) 1,000 MCG TABLET PO SCH (08:53)
[2022-01-06] MEDS: amLODIPine 5 MG TABLET PO SCH ×2 (08:53→21:18)
[2022-01-06] MEDS: *HR* Rivaroxaban 10 MG TABLET PO SCH (08:53)
[2022-01-06] MEDS: tiZANidine 4 MG TABLET PO SCH ×2 (08:53→21:18)
[2022-01-06] MEDS: Sennosides/Docusate Sodium TABLET PO SCH ×2 (08:53→21:17)
[2022-01-06] MEDS: atenoloL 50 MG TABLET PO SCH (08:55)
[2022-01-07] MEDS: polyethylene glycoL 3350 17 GM POWD.PACK PO SCH (09:07)
[2022-01-07] MEDS: Aspirin Enteric Coated 81 MG Tablet PO SCH (09:08)
[2022-01-07] MEDS: Losartan/HCTZ 50-12.5 TABLET PO SCH (09:08)
[2022-01-07] MEDS: Sennosides/Docusate Sodium TABLET PO SCH ×2 (09:09→20:17)
[2022-01-07] MEDS: *HR* Rivaroxaban 10 MG TABLET PO SCH (09:09)
[2022-01-07] MEDS: Magnesium Oxide 400 MG TABLET PO SCH ×2 (09:09→20:15)
[2022-01-07] MEDS: atenoloL 50 MG TABLET PO SCH (09:09)
[2022-01-07] MEDS: amLODIPine 5 MG TABLET PO SCH ×2 (09:09→20:17)
[2022-01-07] MEDS: tiZANidine 4 MG TABLET PO SCH ×2 (09:09→20:15)
[2022-01-07] MEDS: Gabapentin 300 MG CAPSULE PO SCH ×2 (09:09→20:16)
[2022-01-07] MEDS: Cyanocobalamin (B-12) 1,000 MCG TABLET PO SCH (09:09)
[2022-01-07] MEDS: levoFLOXacin 500 MG TABLET PO SCH (09:09)
[2022-01-08] MEDS: amLODIPine 5 MG TABLET PO SCH ×2 (07:25→20:52)
[2022-01-08] MEDS: polyethylene glycoL 3350 17 GM POWD.PACK PO SCH (07:25)
[2022-01-08] MEDS: levoFLOXacin 500 MG TABLET PO SCH (07:25)
[2022-01-08] MEDS: Losartan/HCTZ 50-12.5 TABLET PO SCH (07:25)
[2022-01-08] MEDS: Aspirin Enteric Coated 81 MG Tablet PO SCH (07:26)
[2022-01-08] MEDS: Cyanocobalamin (B-12) 1,000 MCG TABLET PO SCH (07:26)
[2022-01-08] MEDS: Gabapentin 300 MG CAPSULE PO SCH ×2 (07:26→20:51)
[2022-01-08] MEDS: Magnesium Oxide 400 MG TABLET PO SCH ×2 (07:26→20:53)
[2022-01-08] MEDS: *HR* Rivaroxaban 10 MG TABLET PO SCH (07:26)
[2022-01-08] MEDS: atenoloL 50 MG TABLET PO SCH (07:27)
[2022-01-08] MEDS: Sennosides/Docusate Sodium TABLET PO SCH ×2 (07:27→20:52)
[2022-01-08] MEDS: tiZANidine 4 MG TABLET PO SCH ×2 (07:28→20:53)
[2022-01-08 13:59] LABS: Basophils # 0.1 K/mcL (0.0-0.2); Basophils % 0.7 %; Eosinophils # 0.2 K/mcL (0.0-0.6); Eosinophils % 2.6 %; Hematocrit 33.7 % (37.5-50.1); Hemoglobin 11.2 g/dL (12.9-16.9); Immature Granulocytes % 0.8 % (0-4); Lymphocytes # 1.1 K/mcL (0.6-4.6); Lymphocytes % 13.7 %; Mean Corpuscular HGB Conc 33.2 g/dL (31.6-35.5); Mean Corpuscular Hemoglobin 31.5 pg (28.0-33.3); Mean Corpuscular Volume 94.7 fL (83.0-100.0); Mean Platelet Volume 8.6 fL (9.4-12.4); Monocytes # 0.6 K/mcL (0.0-1.3); Monocytes % 8.4 %; Neutrophils # 5.7 K/mcL (1.6-8.9); Platelet Count 401 K/mcL (140-400); Red Blood Count 3.56 M/mcL (4.19-5.50); Red Cell Distribution Width 13.2 % (11.5-14.5); Segmented Neutrophils % 73.8 %; White Blood Count 7.7 K/mcL (4.3-11.1)
[2022-01-08 14:13] LABS: Calcium 9.9 mg/dL (8.6-10.3); Potassium 4.1 mEq/L (3.5-5.1)
[2022-01-08] MEDS ORDERED: hydrALAZINE 25 MG TABLET PO PRN (14:20)
[2022-01-09] MEDS: amLODIPine 5 MG TABLET PO SCH ×2 (08:02→22:48)
[2022-01-09] MEDS: levoFLOXacin 500 MG TABLET PO SCH (08:03)
[2022-01-09] MEDS: tiZANidine 4 MG TABLET PO SCH ×2 (08:03→22:47)
[2022-01-09] MEDS: Aspirin Enteric Coated 81 MG Tablet PO SCH (08:04)
[2022-01-09] MEDS: Cyanocobalamin (B-12) 1,000 MCG TABLET PO SCH (08:04)
[2022-01-09] MEDS: Magnesium Oxide 400 MG TABLET PO SCH ×2 (08:04→22:45)
[2022-01-09] MEDS: *HR* Rivaroxaban 10 MG TABLET PO SCH (08:04)
[2022-01-09] MEDS: Gabapentin 300 MG CAPSULE PO SCH ×2 (08:04→22:46)
[2022-01-09] MEDS: Sennosides/Docusate Sodium TABLET PO SCH ×2 (08:05→22:48)
[2022-01-09] MEDS: polyethylene glycoL 3350 17 GM POWD.PACK PO SCH (08:05)
[2022-01-09] MEDS ORDERED: atenoloL 50 MG TABLET PO SCH (09:00)
[2022-01-09] MEDS ORDERED: Losartan/HCTZ 50-12.5 TABLET PO SCH (17:00)
[2022-01-09] MEDS: *HR* OxyCODONE/APAP 5/325 TABLET PO PRN (22:43)
[2022-01-10 05:56] LABS: Basophils # 0.1 K/mcL (0.0-0.2); Basophils % 1.2 %; Eosinophils # 0.2 K/mcL (0.0-0.6); Eosinophils % 4.2 %; Hematocrit 31.1 % (37.5-50.1); Hemoglobin 10.1 g/dL (12.9-16.9); Mean Corpuscular HGB Conc 32.5 g/dL (31.6-35.5); Mean Corpuscular Hemoglobin 31.4 pg (28.0-33.3); Mean Corpuscular Volume 96.6 fL (83.0-100.0); Mean Platelet Volume 8.4 fL (9.4-12.4); Monocytes # 0.7 K/mcL (0.0-1.3); Monocytes % 14.7 %; Platelet Count 335 K/mcL (140-400); Red Blood Count 3.22 M/mcL (4.19-5.50); Red Cell Distribution Width 13.1 % (11.5-14.5); Segmented Neutrophils % 58.9 %
[2022-01-10 06:12] LABS: BUN/Creatinine Ratio 22 (6-26); Blood Urea Nitrogen 30 mg/dL (8-23); Calcium 9.1 mg/dL (8.6-10.3); Carbon Dioxide 31 mEq/L (23-29); Chloride 104 mEq/L (98-107); Glucose 116 mg/dL (70-105); Osmolality,Calculated 297 (280-300); Potassium 4.1 mEq/L (3.5-5.1); Sodium 140 mEq/L (136-145); eGFR For African Americans > 60 (> 60); eGFR For Non-African Americans 52 (> 60)
[2022-01-10] MEDS: polyethylene glycoL 3350 17 GM POWD.PACK PO SCH (09:15)
[2022-01-10] MEDS: amLODIPine 5 MG TABLET PO SCH ×2 (09:16→21:01)
[2022-01-10] MEDS: tiZANidine 4 MG TABLET PO SCH ×2 (09:16→20:59)
[2022-01-10] MEDS: Gabapentin 300 MG CAPSULE PO SCH ×2 (09:16→20:59)
[2022-01-10] MEDS: Aspirin Enteric Coated 81 MG Tablet PO SCH (09:16)
[2022-01-10] MEDS: levoFLOXacin 500 MG TABLET PO SCH (09:16)
[2022-01-10] MEDS: *HR* Rivaroxaban 10 MG TABLET PO SCH (09:16)
[2022-01-10] MEDS: Sennosides/Docusate Sodium TABLET PO SCH ×2 (09:16→20:59)
[2022-01-10] MEDS: Magnesium Oxide 400 MG TABLET PO SCH ×2 (09:16→21:01)
[2022-01-10] MEDS: Cyanocobalamin (B-12) 1,000 MCG TABLET PO SCH (09:16)
[2022-01-10 19:50] VITALS: RESP 16
[2022-01-10] MEDS: *HR* OxyCODONE/APAP 5/325 TABLET PO PRN (21:00)
[2022-01-11 06:40] VITALS: BP 129/67; PULSE 63; TEMP 97.8; O2SAT 95
[2022-01-11] MEDS: polyethylene glycoL 3350 17 GM POWD.PACK PO SCH (08:29)
[2022-01-11] MEDS: Gabapentin 300 MG CAPSULE PO SCH (08:29)
[2022-01-11] MEDS: *HR* Rivaroxaban 10 MG TABLET PO SCH (08:29)
[2022-01-11] MEDS: tiZANidine 4 MG TABLET PO SCH (08:30)
[2022-01-11] MEDS: Magnesium Oxide 400 MG TABLET PO SCH (08:30)
[2022-01-11] MEDS: Aspirin Enteric Coated 81 MG Tablet PO SCH (08:30)
[2022-01-11] MEDS: amLODIPine 5 MG TABLET PO SCH (08:31)
[2022-01-11] MEDS: Cyanocobalamin (B-12) 1,000 MCG TABLET PO SCH (08:31)
[2022-01-11] MEDS: Sennosides/Docusate Sodium TABLET PO SCH (08:31)
[2022-01-11] MEDS: levoFLOXacin 500 MG TABLET PO SCH (08:31)
== END 2022-01-11 15:12 | disposition home health service (06) | DRG 726 ==
LOC: INPGRE 16:54
PROVIDERS: ADMIT Family Medicine; ATTEND Family Medicine